=== PATIENT | female | born 1990 | race Caucasian/White ===

== ENCOUNTER 2017-11-20 14:14 | Emergency (ER) | payer BC ==
[2017-11-20] MEDS ORDERED: ONDANSETRON 4 MG (ODT) TAB ONE (14:52)
[2017-11-20 15:03] LABS: Urine Blood TRACE (NEG); Urine Glucose NEGATIVE (NEG); Urine Protein TRACE (NEG); Urine Specific Gravity 1.025 (1.005-1.030); Urine pH 5.5 (5.0-7.0)
--- NOTE | 2017-11-20 16:05 | ER ---
Nurse's Notes [facility] Name: Arline Ordaz Age: 27 yrs Sex: Female : 1990 Arrival Date: 11/20/2017 Time: 14:18 Bed DIS2 Private MD: Diagnosis: Noninfective gastroenteritis and colitis, unspecified Presentation: 11/20 14:45 Presenting complaint: Patient states: i have had some congestion, body aches and tw2 vomiting for a week, me and him i think are passing it to each other. Transition of care: patient was not received from another setting of care. Onset of symptoms was November 20, 2017. Initial Sepsis Screen: Does the patient meet any 2 criteria? No. Patient's initial sepsis screen is negative. Does the patient have a suspected source of infection? No. Patient's initial sepsis screen is negative. Care prior to arrival: None. 14:45 Method Of Arrival: Ambulatory tw2 14:45 Acuity: ALPESH 4 tw2 Triage Assessment: 15:15 General: Appears in no apparent distress. obese, Behavior is calm, cooperative, tw2 appropriate for age. Pain: Denies pain. Neuro: Level of Consciousness is awake, alert, obeys commands, Oriented to person, place, time, situation. Cardiovascular: Denies chest pain, palpitations, Capillary refill < 3 seconds Patient's skin is warm and dry. Respiratory: Airway is patent Respiratory effort is even, unlabored, Respiratory pattern is regular, symmetrical. GI: Reports nausea, vomiting. : No signs and/or symptoms were reported regarding the genitourinary system. Musculoskeletal: Range of motion: intact in all extremities. 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 tw2 Historical: - Allergies: 15:14 No Known Drug Allergies; tw2 - Immunization history:: Adult Immunizations up to date. - Social history:: Smoking status: Patient/guardian denies using tobacco. Screenin:14 Abuse screen: Denies threats or abuse. Nutritional screening: No deficits noted. tw2 Tuberculosis screening: No symptoms or risk factors identified. Fall Risk None identified. Assessment: 14:40 General: Appears in no apparent distress. obese, well groomed, Behavior is calm, tw2 cooperative, appropriate for age. Neuro: Level of Consciousness is awake, alert, obeys commands, Oriented to person, place, time, situation. Cardiovascular: Denies chest pain, shortness of breath, Capillary refill < 3 seconds Patient's skin is warm and dry. Respiratory: Airway is patent Respiratory effort is even, unlabored, Respiratory pattern is regular, symmetrical. GI: Parent/caregiver reports the patient having nausea, vomiting. : No signs and/or symptoms were reported regarding the genitourinary system. Derm: No signs and/or symptoms reported regarding the dermatologic system. Skin is intact, is healthy with good turgor, Skin temperature is warm. Musculoskeletal: Range of motion: intact in all extremities. 15:42 Reassessment: Patient appears in no apparent distress at this time. Patient and/or tw2 family updated on plan of care and expected duration. Pain level reassessed. Patient is alert, oriented x 3, equal unlabored respirations, skin warm/dry/pink. pt tolerated PO fluids, no vomiting, provider notified. Patient states feeling better. Vital Signs: 14:46 BP 111 / 67; Pulse 98; Resp 17; Temp 97.6(TE); Pulse Ox 97% on R/A; Weight 104.33 kg tw2 (R); Height 5 ft. 9 in. (175.26 cm); Pain 5/10; 15:49 BP 114 / 69; Pulse 87; Resp 18; Pulse Ox 97% on R/A; tw2 14:46 Body Mass Index 33.96 (104.33 kg, 175.26 cm) tw2 ED Course: 14:18 Patient arrived in ED. as 14:37 [facility]C [facility]. kb 14:37 Tunde Ferrera MD is Attending Physician. kb 14:45 Cinda Love, JOSE is Primary Nurse. tw2 14:46 Triage completed. tw2 15:15 Arm band placed on. tw2 15:15 Bed in low position. Call light in reach. tw2 15:16 No provider procedures requiring assistance completed. Patient did not have IV access tw2 during this emergency room visit. Administered Medications: 15:00 Drug: Zofran 4 mg Route: PO; tw2 15:42 Follow up: Response: No adverse reaction; Nausea is decreased tw2 Outcome: 16:04 Discharge ordered by . rose 16:09 Discharged to home ambulatory. tw2 16:09 Condition: stable 16:09 Discharge instructions given to patient, Instructed on discharge instructions, follow up and referral plans. medication usage, Demonstrated understanding of instructions, follow-up care, medications, Prescriptions given X 2. 16:09 Patient left the ED. tw2 Signatures: Lilli Mae FNP-C FNP-Edith Alexander Tara, RN RN tw2
--- NOTE | 2017-11-20 16:05 | EDPHYS ---
Physician Documentation [facility] Name: Arline Ordaz Age: 27 yrs Sex: Female : 1990 Arrival Date: 11/20/2017 Time: 14:18 Bed DIS2 Private MD: ED Physician Tunde Ferrera HPI: 11/20 16:37 This 27 yrs old Female presents to ER via Ambulatory with complaints of kb Fever, Vomiting, Congestion. 16:37 The patient presents to the emergency department with nausea, vomiting, diarrhea. kb Onset: The symptoms/episode began/occurred last week. Possible causes: sick contacts, by family, , son. The symptoms are aggravated by nothing. The symptoms are alleviated by nothing. Associated signs and symptoms: Pertinent positives: diarrhea, fever, nausea, vomiting. Severity of symptoms: At their worst the symptoms were mild moderate in the emergency department the symptoms are unchanged. The patient has not experienced similar symptoms in the past. The patient has not recently seen a physician. 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 tw2 Historical: - Allergies: 15:14 No Known Drug Allergies; tw2 - Immunization history:: Adult Immunizations up to date. - Social history:: Smoking status: Patient/guardian denies using tobacco. ROS: 16:36 Neck: Negative for injury, pain, and swelling, Cardiovascular: Negative for chest pain, kb palpitations, and edema, Respiratory: Negative for shortness of breath, cough, wheezing, and pleuritic chest pain, Back: Negative for injury and pain, : Negative for injury, bleeding, discharge, and swelling, MS/Extremity: Negative for injury and deformity, Skin: Negative for injury, rash, and discoloration, Neuro: Negative for headache, weakness, numbness, tingling, and seizure. 16:36 Constitutional: Positive for fever, Negative for body aches, chills, fatigue, malaise, poor PO intake, weight loss. 16:36 ENT: Positive for sinus congestion. 16:36 Abdomen/GI: Positive for nausea, vomiting, and diarrhea, Negative for abdominal pain, constipation, abdominal cramps, abdominal distension, anorexia. Exam: 16:37 Constitutional: This is a well developed, well nourished patient who is awake, alert, kb and in no acute distress. Head/Face: Normocephalic, atraumatic. ENT: Nares patent. No nasal discharge, no septal abnormalities noted. Tympanic membranes are normal and external auditory canals are clear. Oropharynx with no redness, swelling, or masses, exudates, or evidence of obstruction, uvula midline. Mucous membranes moist. Neck: Trachea midline, no thyromegaly or masses palpated, and no cervical lymphadenopathy. Supple, full range of motion without nuchal rigidity, or vertebral point tenderness. No Meningismus. Chest/axilla: Normal chest wall appearance and motion. Nontender with no deformity. No lesions are appreciated. Cardiovascular: Regular rate and rhythm with a normal S1 and S2. No gallops, murmurs, or rubs. Normal PMI, no JVD. No pulse deficits. Respiratory: Lungs have equal breath sounds bilaterally, clear to auscultation and percussion. No rales, rhonchi or wheezes noted. No increased work of breathing, no retractions or nasal flaring. Abdomen/GI: Soft, non-tender, with normal bowel sounds. No distension or tympany. No guarding or rebound. No evidence of tenderness throughout. Skin: Warm, dry with normal turgor. Normal color with no rashes, no lesions, and no evidence of cellulitis. MS/ Extremity: Pulses equal, no cyanosis. Neurovascular intact. Full, normal range of motion. Neuro: Awake and alert, GCS 15, oriented to person, place, time, and situation. Cranial nerves II-XII grossly intact. Motor strength 5/5 in all extremities. Sensory grossly intact. Cerebellar exam normal. Normal gait. Vital Signs: 14:46 BP 111 / 67; Pulse 98; Resp 17; Temp 97.6(TE); Pulse Ox 97% on R/A; Weight 104.33 kg tw2 (R); Height 5 ft. 9 in. (175.26 cm); Pain 5/10; 15:49 BP 114 / 69; Pulse 87; Resp 18; Pulse Ox 97% on R/A; tw2 14:46 Body Mass Index 33.96 (104.33 kg, 175.26 cm) tw2 MDM: 14:37 Patient medically screened. kb 16:36 Data reviewed: vital signs, nurses notes. Data interpreted: Pulse oximetry: on room air kb is 97 %. Interpretation: normal. Counseling: I had a detailed discussion with the patient and/or guardian regarding: the historical points, exam findings, and any diagnostic results supporting the discharge/admit diagnosis, the need for outpatient follow up, a family practitioner, to return to the emergency department if symptoms worsen or persist or if there are any questions or concerns that arise at home. 11/20 15:01 Order name: Urine Dipstick--Ancillary (enter results); Complete Time: 15:08 mw2 11/20 15:01 Order name: Urine --Ancillary (enter results); Complete Time: 15:08 mw2 11/20 14:47 Order name: Urine Dipstick-Ancillary (obtain specimen); Complete Time: 15:02 kb 11/20 14:48 Order name: PO challenge; Complete Time: 15:42 kb Administered Medications: 15:00 Drug: Zofran 4 mg Route: PO; tw2 15:42 Follow up: Response: No adverse reaction; Nausea is decreased tw2 Disposition: 17:32 Co-signature as Attending Physician, Tunde Ferrera MD. rn Disposition: 11/20/17 16:04 Discharged to Home. Impression: Noninfective gastroenteritis and colitis, unspecified. - Condition is Stable. - Discharge Instructions: Food Choices to Help Relieve Diarrhea, Adult, Viral Gastroenteritis. - Prescriptions for Bentyl 20 mg Oral Tablet - take 1 tablet by ORAL route every 6 hours As needed; 20 tablet. Zofran 4 mg Oral Tablet - take 1 tablet by ORAL route every 6 hours As needed; 20 tablet. - Medication Reconciliation Form, Thank You Letter, Antibiotic Education, Prescription Opioid Use, Work release form form. - Follow up: Emergency Department; When: As needed; Reason: Worsening of condition. Follow up: Private Physician; When: 2 - 3 days; Reason: Recheck today's complaints, Continuance of care, Re-evaluation by your physician. Signatures: Dispatcher [employer] Lilli Sweeney, KOREY-C KOREY-Tunde Fink MD MD rn Wise, Tara, RN RN tw2
[2017-11-20 16:25] VITALS: BP 114/69; O2SAT 97
[2017-11-20 16:27] VITALS: TEMP 97.6
== END 2017-11-20 16:09 | disposition home or self-care (01) ==
LOC: ER 14:14
DX: K52.9 Noninfective gastroenteritis and colitis, unspecified (principal); R11.10 Vomiting, unspecified; R50.9 Fever, unspecified
CPT/HCPCS: 81003; 81025; 99283

== ENCOUNTER 2017-11-29 10:18 | Emergency (ER) | payer BC ==
--- NOTE | 2017-11-29 12:31 | RAD REPORT ---
EXAM DESCRIPTION: CT - CTHCSPWOC - 11/29/2017 12:15 pm CLINICAL HISTORY: Trauma, head and neck injury. COMPARISON: None. TECHNIQUE: Axial 5 mm thick images of the head were obtained. Axial 2 mm thick images of the cervical spine were obtained with sagittal and coronal reconstruction images generated and reviewed. All CT scans are performed using dose optimization technique as appropriate and may include automated exposure control or mA/KV adjustment according to patient size. FINDINGS: CT HEAD WITHOUT CONTRAST: No acute hemorrhage, hydrocephalus or extra-axial collection is identified.No areas of brain edema or midline shift. The paranasal sinuses and mastoids are clear.The calvarium is intact. CT CERVICAL SPINE WITHOUT CONTRAST: No fracture or subluxation.No prevertebral soft tissues swelling is identified. IMPRESSION: No acute intracranial or cervical spine findings.
--- NOTE | 2017-11-29 12:51 | RAD REPORT ---
EXAM DESCRIPTION: Spine Thoracic W/Swimmers CLINICAL HISTORY: Fall, trauma, radiculopathy. COMPARISON: None FINDINGS: The thoracic spine vertebral body heights and disc spaces are largely maintained. No acute compression fracture. No significant malalignment. IMPRESSION: Negative study.
--- NOTE | 2017-11-29 12:51 | RAD REPORT ---
EXAM DESCRIPTION: Lumbar Spine 3 Views CLINICAL HISTORY: Fall, back pain and radiculopathy. COMPARISON: None. FINDINGS: Vertebral body heights appear maintained. No compression fracture noted. Disc spaces are m aintained. No spondylolysis or spondylolisthesis. IMPRESSION: Negative study.
[2017-11-29 13:19] LABS: Absolute Lymphocytes (CBC) 2.4 K/uL (0.7-4.9); Absolute Monocytes 0.7 K/uL (0.1-1.3); Absolute Neutrophil 6.3 K/uL (1.8-8.0); Basophils % 0.5 % (0-1.3); Eosinophils % 2.1 % (0-4.4); Hematocrit 42.5 % (36.0-45.0); Lymphocytes % 24.4 % (15.3-44.8); MCH 26.6 pg (27.0-35.0); Monocytes % 7.4 % (3.3-12.3); RBC Red Blood Cell Count 5.19 M/uL (3.86-4.86)
[2017-11-29] MEDS ORDERED: IBUPROFEN 400 MG TAB ONE (13:22)
[2017-11-29] MEDS ORDERED: ACETAMINOPHEN 500 MG TAB ONE (13:22)
[2017-11-29] MEDS ORDERED: IBUPROFEN 200 MG TAB PO ONE (13:22)
[2017-11-29 13:36] LABS: Urine Glucose NEGATIVE (NEG); Urine Specific Gravity 1.025 (1.005-1.030)
[2017-11-29 13:37] LABS: Urine Blood NEGATIVE (NEG); Urine Protein NEGATIVE (NEG); Urine pH 5.5 (5.0-7.0)
[2017-11-29 13:40] LABS: Potassium 3.7 mEq/L (3.6-5.0)
[2017-11-29 13:46] LABS: Albumin 3.8 g/dL (3.2-5.5); Bilirubin Direct 0.1 mg/dL (0-0.2); Bilirubin Total 0.4 mg/dL (0.3-1.2); Magnesium 1.8 mg/dL (1.8-2.5)
--- NOTE | 2017-11-29 14:32 | EDPHYS ---
Physician Documentation [facility] Name: Arline Ordaz Age: 27 yrs Sex: Female : 1990 Arrival Date: 11/29/2017 Time: 10:19 Bed 18 Private MD: Ramesh Nielsen H ED Physician Damaso Ace HPI: 11/29 14:20 This 27 yrs old Female presents to ER via Ambulatory with complaints of wa Headache, Back Pain. 14:20 This 27 yrs old Female presents to ER via Ambulatory with complaints of wa Headache, Back Pain. 14:20 The patient has experienced syncope, collapsed. Onset: The symptoms/episode wa began/occurred last night. Duration: This was a single episode. Context: the episode(s) was witnessed, by family, occurred at home, occurred while the patient was walking, Just prior to the episode the patient experienced no apparent symptoms. Associated injury: Other: c/o ANDERSON, neck and back pain. h/o drop attacks. states no dx has even been made. Associated signs and symptoms: Pertinent positives: headache, neck pain, Pertinent negatives: abdominal pain, agitation, ataxia, chest pain, lightheadedness. Current symptoms: headache, that is moderate, neck pain. The patient has not experienced similar symptoms in the past. The patient has experienced similar episodes in the past. The patient has not recently seen a physician. 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 - Social history:: Smoking status: Patient/guardian denies using tobacco. - Family history:: not pertinent. - Hospitalizations: : No recent hospitalization is reported. ROS: 14:24 Constitutional: Negative for fever, chills, and weight loss, Eyes: Negative for injury, wa pain, redness, and discharge, ENT: Negative for injury, pain, and discharge, Neck: Negative for injury, pain, and swelling, Cardiovascular: Negative for chest pain, palpitations, and edema, Respiratory: Negative for shortness of breath, cough, wheezing, and pleuritic chest pain, Abdomen/GI: Negative for abdominal pain, nausea, vomiting, diarrhea, and constipation, : Negative for injury, bleeding, discharge, and swelling, MS/Extremity: Negative for injury and deformity, Skin: Negative for injury, rash, and discoloration. 14:24 Back: Positive for pain with movement. 14:24 Neuro: Positive for headache, Negative for altered mental status. 14:24 All other systems are negative. Exam: 14:27 Constitutional: This is a well developed, well nourished patient who is awake, alert, wa and in no acute distress. Head/Face: Normocephalic, atraumatic. Eyes: Pupils equal round and reactive to light, extra-ocular motions intact. Lids and lashes normal. Conjunctiva and sclera are non-icteric and not injected. Cornea within normal limits. Periorbital areas with no swelling, redness, or edema. ENT: Nares patent. No nasal discharge, no septal abnormalities noted. Tympanic membranes are normal and external auditory canals are clear. Oropharynx with no redness, swelling, or masses, exudates, or evidence of obstruction, uvula midline. Mucous membranes moist. Neck: Trachea midline, no thyromegaly or masses palpated, and no cervical lymphadenopathy. Supple, full range of motion without nuchal rigidity, or vertebral point tenderness. No Meningismus. Chest/axilla: Normal chest wall appearance and motion. Nontender with no deformity. No lesions are appreciated. Cardiovascular: Regular rate and rhythm with a normal S1 and S2. No gallops, murmurs, or rubs. Normal PMI, no JVD. No pulse deficits. Respiratory: Lungs have equal breath sounds bilaterally, clear to auscultation and percussion. No rales, rhonchi or wheezes noted. No increased work of breathing, no retractions or nasal flaring. Abdomen/GI: Soft, non-tender, with normal bowel sounds. No distension or tympany. No guarding or rebound. No evidence of tenderness throughout. Skin: Warm, dry with normal turgor. Normal color with no rashes, no lesions, and no evidence of cellulitis. MS/ Extremity: Pulses equal, no cyanosis. Neurovascular intact. Full, normal range of motion. Psych: Awake, alert, with orientation to person, place and time. Behavior, mood, and affect are within normal limits. 14:27 Back: pain, that is moderate, of the thoracic area, lumbar area and sacrum. 14:27 Neuro: Orientation: is normal, Mentation: is normal, Cranial nerves: grossly normal, Motor: is normal. Vital Signs: 10:34 BP 131 / 82; Pulse 88; Resp 16 S; Temp 97.8(TE); Pulse Ox 96% on R/A; Weight 129.27 kg aa5 (R); Height 5 ft. 9 in. (175.26 cm) (R); Pain 8/10; 11:27 BP 120 / 80; Pulse 80; Resp 16; Pulse Ox 97% on R/A; Pain 8/10; ed1 13:25 BP 101 / 77; Pulse 60; Resp 20; Pulse Ox 100% on R/A; Pain 8/10; ed1 14:04 BP 112 / 65; Pulse 80; Resp 19; Pulse Ox 100% on R/A; Pain 6/10; ed1 10:34 Body Mass Index 42.09 (129.27 kg, 175.26 cm) aa5 MDM: 11:31 Patient medically screened. id 14:28 Differential Diagnosis: cardiac arrhythmia, cerebrovascular accident, seizure, wa vasovagal episode. Data reviewed: vital signs, nurses notes, lab test result(s), EKG, radiologic studies. Test interpretation: by ED physician or midlevel provider: EKG: HR 66. nml EKG. 14:29 Test interpretation: by ED physician or midlevel provider: labs wnl. CT head and wa C-spine no acute process. 14:29 Test interpretation: by ED physician or midlevel provider: lumbar and T spine xrays: no wa acute process. Response to treatment: the patient's symptoms have markedly improved after treatment. 11/29 11:52 Order name: Basic Metabolic Panel; Complete Time: 14:12 id 11/29 11:52 Order name: CBC with Diff; Complete Time: 14:12 id 11/29 11:52 Order name: LFT's; Complete Time: 14:12 id 11/29 11:52 Order name: Magnesium; Complete Time: 14:12 id 11/29 13:21 Order name: Urine Dipstick--Ancillary (enter results); Complete Time: 14:12 11/29 13:21 Order name: Urine --Ancillary (enter results); Complete Time: 14:12 11/29 11:52 Order name: Urine Test (obtain specimen); Complete Time: 13:11 id 11/29 11:52 Order name: EKG; Complete Time: 11:53 id 11/29 11:52 Order name: Cardiac monitoring; Complete Time: 13:11 id 11/29 11:54 Order name: CT Head C Spine; Complete Time: 13:18 id 11/29 11:56 Order name: Lumbar Spine (3 Views) XRAY; Complete Time: 13:18 id 11/29 11:56 Order name: XRAY Thoracic Spine (W/swimmers); Complete Time: 13:18 id 11/29 11:52 Order name: EKG - Nurse/Tech; Complete Time: 13:11 id 11/29 11:52 Order name: IV Saline Lock; Complete Time: 13:11 id 11/29 11:52 Order name: Labs collected and sent; Complete Time: 13:11 id 11/29 11:52 Order name: O2 Sat Monitoring; Complete Time: 13:11 id 11/29 11:52 Order name: Urine Dipstick-Ancillary (obtain specimen); Complete Time: 13:11 id Administered Medications: 13:27 Drug: Motrin 600 mg Route: PO; ed1 14:53 Follow up: Response: No adverse reaction; Pain is decreased ed1 13:28 Drug: Tylenol 1000 mg Route: PO; ed1 14:53 Follow up: Response: No adverse reaction; Pain is decreased ed1 Disposition: 11/29/17 14:32 Discharged to Home. Impression: Syncope and collapse, Acute Neck and BAck Sprain. - Condition is Stable. - Prescriptions for Tramadol 50 mg Oral Tablet - take 1 tablet by ORAL route every 8 hours as needed; 12 tablet. - Work release form, Medication Reconciliation Form, Thank You Letter, Antibiotic Education, Prescription Opioid Use form. - Follow up: Davey Mata MD; When: 2 - 3 days; Reason: Recheck today's complaints. Follow up: Cole Barrios MD; When: 2 - 3 days; Reason: Recheck today's complaints. - Problem is an acute exacerbation. - Symptoms have improved. - Notes: please follow up with the neurologist and production posting clerk with further evaluation. Signatures: Dispatcher [employer] EDMS Kelly Steward, RN RN aa5 Janae Lewis, VICE PRESIDENT NETWORK VICE PRESIDENT NETWORK ed1 Damaso Ace MD MD wa Corrections: (The following items were deleted from the chart) 14:54 14:32 11/29/2017 14:32 Discharged to Home. Impression: Syncope and collapse; Acute Neck ed1 and BAck Sprain. Condition is Stable. Forms are Medication Reconciliation Form, Thank You Letter, Antibiotic Education, Prescription Opioid Use. Follow up: Davey Mata; When: 2 - 3 days; Reason: Recheck today's complaints. Follow up: Cole Barrios; When: 2 - 3 days; Reason: Recheck today's complaints. Problem is an acute exacerbation. Symptoms have improved. wa
--- NOTE | 2017-11-29 14:32 | ER ---
Nurse's Notes [facility] Name: Arline Ordaz Age: 27 yrs Sex: Female : 1990 Arrival Date: 11/29/2017 Time: 10:19 Bed 18 Private MD: Ramesh Nielsen H Diagnosis: Syncope and collapse;Acute Neck and BAck Sprain Presentation: 11/29 10:32 Presenting complaint: Patient states: "I passed out today around 2 am". Pt states "my aa5 found me lying down on the sidewalk". Pt states "I've had trouble with passing out for years and nobody can found out why". Pt c/o back pain and headache. Transition of care: patient was not received from another setting of care. Onset of symptoms was November 29, 2017. Initial Sepsis Screen: Does the patient meet any 2 criteria? No. Patient's initial sepsis screen is negative. Does the patient have a suspected source of infection? No. Patient's initial sepsis screen is negative. Care prior to arrival: None. 10:32 Method Of Arrival: Ambulatory aa5 10:32 Acuity: ALPESH 3 aa5 Triage Assessment: 11:27 Headache History: The patient has had previous headaches and this one is similar to ed1 previous episodes. General: Appears in no apparent distress. Behavior is calm, cooperative. Pain: Also complains of no other associated symptoms. Pain: Complains of pain in face. 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 - Social history:: Smoking status: Patient/guardian denies using tobacco. - Family history:: not pertinent. - Hospitalizations: : No recent hospitalization is reported. Screenin:27 Abuse screen: Denies threats or abuse. Denies injuries from another. Nutritional ed1 screening: No deficits noted. Tuberculosis screening: No symptoms or risk factors identified. Fall Risk None identified. Assessment: 11:27 General: Appears uncomfortable, Behavior is calm, cooperative. Pain: Complains of pain ed1 in face, low back area and neck Pain does not radiate. Pain currently is 8 out of 10 on a pain scale. at worst was 10 out of 10 on a pain scale. level that patient reports is acceptable is 3 out of 10 on a pain scale. Quality of pain is described as burning, aching, Pain began 1 day ago. Is continuous, Current management is with Ally Aspirin. Neuro: Level of Consciousness is awake, alert, obeys commands, Oriented to person, place, time, situation, Meat And Seafood Clerk are equal bilaterally Moves all extremities. Full function Gait is steady, Speech is normal, Facial symmetry appears normal, Pupils are PERRLA, Intact Reports headache in entire parietal area, frontal area, occipital area, since yesterday lightheadedness. Denies blurred vision difficulty swallowing, numbness photophobia diplopia. Cardiovascular: Denies chest pain, Heart tones S1 S2 present Capillary refill < 3 seconds in bilateral fingers Patient's skin is warm and dry. Respiratory: Airway is patent Respiratory effort is even, unlabored, Respiratory pattern is regular, symmetrical, Breath sounds are clear bilaterally. Denies cough, shortness of breath. GI: Abdomen is obese, Bowel sounds present X 4 quads. Abd is soft and non tender X 4 quads. Patient currently denies diarrhea, nausea, vomiting. : No signs and/or symptoms were reported regarding the genitourinary system. EENT: No signs and/or symptoms were reported regarding the EENT system. Derm: Skin is pink, warm \\T\\ dry. Musculoskeletal: Circulation, motion, and sensation intact. 11:27 Reassessment: I agree with assessment completed by EUSEBIA Cardoso. iw 13:25 Reassessment: Patient appears in no apparent distress at this time. No changes from ed1 previously documented assessment. Patient and/or family updated on plan of care and expected duration. Pain level reassessed. Patient is alert, oriented x 3, equal unlabored respirations, skin warm/dry/pink. Patient states symptoms have not improved. 14:04 Reassessment: Patient appears in no apparent distress at this time. No changes from ed1 previously documented assessment. Patient and/or family updated on plan of care and expected duration. Pain level reassessed. Patient is alert, oriented x 3, equal unlabored respirations, skin warm/dry/pink. Patient states feeling better. Patient states symptoms have improved. Vital Signs: 10:34 BP 131 / 82; Pulse 88; Resp 16 S; Temp 97.8(TE); Pulse Ox 96% on R/A; Weight 129.27 kg aa5 (R); Height 5 ft. 9 in. (175.26 cm) (R); Pain 8/10; 11:27 BP 120 / 80; Pulse 80; Resp 16; Pulse Ox 97% on R/A; Pain 8/10; ed1 13:25 BP 101 / 77; Pulse 60; Resp 20; Pulse Ox 100% on R/A; Pain 8/10; ed1 14:04 BP 112 / 65; Pulse 80; Resp 19; Pulse Ox 100% on R/A; Pain 6/10; ed1 10:34 Body Mass Index 42.09 (129.27 kg, 175.26 cm) aa5 ED Course: 10:19 Patient arrived in ED. as 10:20 Ramesh Nielsen DO is Private Physician. as 10:34 Triage completed. aa5 10:34 Arm band placed on. aa5 10:35 Patient placed in waiting room, Patient notified of wait time. aa5 11:22 Janae Lewis LVN is Primary Nurse. ed1 11:27 Awaiting ED provider evaluation. ed1 11:27 Patient has correct armband on for positive identification. Bed in low position. Call ed1 light in reach. Side rails up X2. Adult w/ patient. Pulse ox on. NIBP on. 11:31 Damaso Ace MD is Attending Physician. wa 12:15 CT Head C Spine In Process Unspecified. EDMS 12:27 Patient moved to radiology via wheelchair. jb2 12:46 Lumbar Spine (3 Views) XRAY In Process Unspecified. EDMS 12:46 XRAY Thoracic Spine (W/swimmers) In Process Unspecified. EDMS 13:10 Initial lab(s) drawn, by me, sent to lab. Inserted saline lock: 20 gauge in right ed1 antecubital area, using aseptic technique. Blood collected. 14:05 Resting quietly. Awaiting re-evaluation by ER provider. ed1 14:31 Davey Mata MD is Referral Physician. wa 14:31 Cole Barrios MD is Referral Physician. wa 14:52 No provider procedures requiring assistance completed. IV discontinued, intact, ed1 bleeding controlled, No redness/swelling at site. Pressure dressing applied. Administered Medications: 13:27 Drug: Motrin 600 mg Route: PO; ed1 14:53 Follow up: Response: No adverse reaction; Pain is decreased ed1 13:28 Drug: Tylenol 1000 mg Route: PO; ed1 14:53 Follow up: Response: No adverse reaction; Pain is decreased ed1 Outcome: 14:32 Discharge ordered by MD. purcell 14:52 Discharged to home ambulatory, with significant other. ed1 14:52 Condition: good 14:52 Discharge instructions given to patient, Instructed on discharge instructions, follow up and referral plans. medication usage, Demonstrated understanding of instructions, follow-up care, medications, Prescriptions given X 1. 14:54 Patient left the ED. ed1 Signatures: Dispatcher [employer] EDMS Mohsen Mike jb2 Edith Wyatt Irene, RN RN iw Kelly Steward RN RN aa5 Janae Lewis LVN POOLROOM/POOLHALL MANAGER ed1 Damaso Ace MD MD wa
[2017-11-29 14:57] VITALS: TEMP 97.8
[2017-11-29 15:00] VITALS: O2SAT 100
[2017-11-29 15:01] VITALS: BP 112/65
--- NOTE | 2017-11-29 17:42 | EKG ---
Test Date: 2017-11-29 Test Time: 12:53:14 Patent Prosecution Paralegal: GAVINO MEASUREMENT RESULTS: Intervals: Rate: 66 WA: 148 QRSD: 86 QT: 430 QTc: 450 Britt: P: 26 WA: 148 QRS: 46 T: 41 INTERPRETIVE STATEMENTS: Normal sinus rhythm with sinus arrhythmia Normal ECG Compared to ECG 10/12/2015 13:06:38 No significant changes Electronically Signed On 11-29-17 17:41:25 CDT by Darryl Maynard
== END 2017-11-29 14:54 | disposition home or self-care (01) ==
LOC: ER 10:18
DX: S13.9XXA Sprain of joints and ligaments of unspecified parts of neck, initial encounter (principal); S33.5XXA Sprain of ligaments of lumbar spine, initial encounter; W18.39XA Other fall on same level, initial encounter; Y93.9 Activity, unspecified; Y92.9 Unspecified place or not applicable
CPT/HCPCS: 36415; 70450; 72072; 72100; 72125; 80048; 80076; 81003; 81025; 83735; 85025; 93005; 99284

== ENCOUNTER 2018-07-18 23:09 | Emergency (ER) | payer BC ==
[2018-07-19] MEDS ORDERED: ONDANSETRON 4 MG (ODT) TAB ONE (00:33)
--- NOTE | 2018-07-19 02:13 | EDPHYS ---
Physician Documentation [facility] Name: Arline Ordaz Age: 28 yrs Sex: Female : 1990 Arrival Date: 07/18/2018 Time: 23:16 Bed 16 Private MD: ED Physician Yuri Wilkerson HPI: 07/19 00:05 This 28 yrs old Female presents to ER via Ambulatory with complaints of cp Vomiting, Fever. 00:05 The patient presents to the emergency department with nausea, that is mild, vomiting, cp that is intermittent, diarrhea, that is intermittent, abdominal pain, of the left side. Onset: The symptoms/episode began/occurred yesterday. Possible causes: unknown. Associated signs and symptoms: Pertinent positives: fever, Pertinent negatives: constipation, dysuria, GI bleeding, active vomiting. 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 - Social history:: Smoking status: Patient/guardian denies using tobacco, never smoked. - Ebola Screening: : No symptoms or risks identified at this time. ROS: 07/19 00:10 Constitutional: Negative for body aches, chills, fever, poor PO intake. cp 00:10 Eyes: Negative for injury, pain, redness, and discharge. cp 00:10 ENT: Negative for drainage from ear(s), ear pain, difficulty swallowing, difficulty handling secretions. 00:10 Cardiovascular: Negative for chest pain. 00:10 Respiratory: Negative for cough, shortness of breath, wheezing. 00:10 Abdomen/GI: Positive for abdominal pain, nausea, vomiting, diarrhea, Negative for constipation, black/tarry stool, rectal bleeding. 00:10 Back: Negative for radiated pain. 00:10 : Negative for burning with urination. 00:10 Skin: Negative for cellulitis, rash. 00:10 Neuro: Negative for altered mental status, headache, weakness. 00:10 All other systems are negative. Exam: 00:15 Constitutional: The patient appears in no acute distress, alert, awake, non-toxic, well cp developed, well nourished. 00:15 Head/Face: Normocephalic, atraumatic. cp 00:15 Eyes: Periorbital structures: appear normal, Conjunctiva: normal, no exudate, no injection, Sclera: no appreciated abnormality, Lids and lashes: appear normal, bilaterally. 00:15 ENT: External ear(s): are unremarkable, Ear canal(s): are normal, clear, TM's: dullness, bilaterally, Nose: is normal, Mouth: Lips: moist, Oral mucosa: pink and intact, moist, Posterior pharynx: is normal, airway is patent, no erythema, no exudate. 00:15 Chest/axilla: Inspection: normal, Palpation: is normal, no crepitus, no tenderness. 00:15 Cardiovascular: Rate: normal, Rhythm: regular. 00:15 Respiratory: the patient does not display signs of respiratory distress, Respirations: normal, no use of accessory muscles, no retractions, no splinting, no tachypnea, labored breathing, is not present, Breath sounds: are clear throughout, no decreased breath sounds, no stridor, no wheezing. 00:15 Abdomen/GI: Exam negative for discomfort, distension, guarding, Inspection: abdomen appears normal. 00:15 Skin: cellulitis, is not appreciated, no rash present. Vital Signs: 07/18 23:55 BP 117 / 73; Pulse 77; Resp 19 S; Temp 99.2(O); Pulse Ox 99% on R/A; Weight 120.2 kg cc3 (R); Height 5 ft. 9 in. (175.26 cm) (R); 07/19 00:15 BP 124 / 76; Pulse 73; Resp 17 S; Pulse Ox 100% on R/A; cc3 01:30 BP 113 / 73; Pulse 75; Resp 17 S; Pulse Ox 100% on R/A; cc3 02:07 BP 116 / 81; Pulse 74; Resp 18 S; Pulse Ox 99% on R/A; cc3 07/18 23:55 Body Mass Index 39.13 (120.20 kg, 175.26 cm) cc3 MDM: 07/18 23:37 Patient medically screened. [facility] 07/19 00:00 Differential diagnosis: Nonspecific abd pain, gastritis, appendicitis, diverticulitis, cp viral gastroenteritis, gastroenteritis, UTI, strep throat, influenza. 02:10 Data reviewed: vital signs, lab test result(s), and as a result, I will discharge cp patient. 02:10 Counseling: I had a detailed discussion with the patient and/or guardian regarding: the cp historical points, exam findings, and any diagnostic results supporting the discharge/admit diagnosis, lab results, to return to the emergency department if symptoms worsen or persist or if there are any questions or concerns that arise at home. Response to treatment: VSS. Nausea improved and no vomiting observed in ED. Will discharge to home for continued monitoring. 07/18 23:56 Order name: Influenza Screen (a \T\ B); Complete Time: 01:24 07/19 01:24 Interpretation: Reviewed. 07/18 23:56 Order name: Strep; Complete Time: 01:24 07/19 01:25 Interpretation: Reviewed. 07/19 01:16 Order name: Throat Culture [facility] 07/19 01:31 Order name: Urine Microscopic Only 07/19 01:35 Order name: Urine Dipstick--Ancillary (enter results) 07/19 01:35 Order name: Urine --Ancillary (enter results) 07/18 23:56 Order name: Urine Dipstick-Ancillary (obtain specimen); Complete Time: 01:30 07/18 23:56 Order name: Urine Test (obtain specimen); Complete Time: 01:30 07/19 01:31 Order name: Accucheck Blood Glucose; Complete Time: 01:43 07/19 01:36 Order name: Urine Dipstick-Ancillary [facility] 07/19 01:36 Order name: Urine --Ancillary [facility] 07/19 01:36 Order name: PO challenge; Complete Time: 01:43 07/19 02:23 Order name: Urine Culture EDPR Administered Medications: 00:31 Drug: Zofran 4 mg Route: PO; cc3 01:00 Follow up: Response: No adverse reaction; Nausea is decreased cc3 Point of Care Testing: Blood Glucose: 01:42 Blood Glucose: 84 mg/dL; cc3 Ranges: Critical Glucose Levels:Adult <50 mg/dl or >400 mg/dl <40 mg/dl or >180 mg/dl Disposition: 07/19/18 02:12 Discharged to Home. Impression: Diarrhea, unspecified, Vomiting. - Condition is Stable. - Discharge Instructions: Food Choices to Help Relieve Diarrhea, Adult, Diarrhea, Adult, Vomiting, Adult. - Prescriptions for Zofran 4 mg Oral Tablet - take 1 tablet by ORAL route every 12 hours As needed; 20 tablet. Augmentin 875- 125 mg Oral Tablet - take 1 tablet by ORAL route every 12 hours for 7 days; 14 tablet. - Medication Reconciliation Form, Thank You Letter, Antibiotic Education, Prescription Opioid Use, Work release form form. - Follow up: Private Physician; When: 2 - 3 days; Reason: Recheck today's complaints. - Problem is new. - Symptoms have improved. Addendum: 07/29/2018 11:14 Co-signature as Attending Physician, Yuri Wilkerson MD I agree with the assessment and c russo plan of care. Signatures: Dispatcher [employer] EDPR Yuri Wilkerson MD MD cha Page, Corey PA PA Liz Boston cc3 Corrections: (The following items were deleted from the chart) 07/19 02:46 02:12 07/19/2018 02:12 Discharged to Home. Impression: Diarrhea, unspecified; Vomiting. cc3 Condition is Stable. Forms are Medication Reconciliation Form, Thank You Letter, Antibiotic Education, Prescription Opioid Use. Follow up: Private Physician; When: 2 - 3 days; Reason: Recheck today's complaints. Problem is new. Symptoms have improved. cp 19:40 19:30 This 28 yrs old Female presents to ER via Ambulatory with complaints of cp Vomiting, Fever. cp
--- NOTE | 2018-07-19 02:13 | ER ---
Nurse's Notes [facility] Name: Arline Ordaz Age: 28 yrs Sex: Female : 1990 Arrival Date: 07/18/2018 Time: 23:16 Bed 16 Private MD: Diagnosis: Diarrhea, unspecified;Vomiting Presentation: 07/18 23:55 Presenting complaint: Patient states: left sided abdominal pain with vomiting and cc3 diarrhea since last night. Transition of care: patient was not received from another setting of care. Onset of symptoms was July 18, 2018. Risk Assessment: Do you want to hurt yourself or someone else? Patient reports no desire to harm self or others. Initial Sepsis Screen: Does the patient meet any 2 criteria? No. Patient's initial sepsis screen is negative. Does the patient have a suspected source of infection? No. Patient's initial sepsis screen is negative. Care prior to arrival: None. 23:55 Method Of Arrival: Ambulatory cc3 23:55 Acuity: APLESH 3 cc3 Triage Assessment: 23:53 General: Appears in no apparent distress. comfortable, Behavior is calm, cooperative, cc3 appropriate for age. Pain: Complains of pain in abdomen. GI: Reports lower abdominal pain, upper abdominal pain, nausea, vomiting. 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 - Social history:: Smoking status: Patient/guardian denies using tobacco, never smoked. - Ebola Screening: : No symptoms or risks identified at this time. Screenin:53 Abuse screen: Denies threats or abuse. Denies injuries from another. Nutritional cc3 screening: No deficits noted. Tuberculosis screening: No symptoms or risk factors identified. Fall Risk Ambulatory Aid- None/Bed Rest/Nurse Assist (0 pts). Gait- Normal/Bed Rest/Wheelchair (0 pts) Mental Status- Oriented to own ability (0 pts). Assessment: 23:53 GI: Abdomen is round obese. cc3 07/19 00:20 Reassessment: Patient appears in no apparent distress at this time. Patient and/or cc3 family updated on plan of care and expected duration. Pain level reassessed. Patient is alert, oriented x 3, equal unlabored respirations, skin warm/dry/pink. 01:30 Reassessment: Patient appears in no apparent distress at this time. Patient and/or cc3 family updated on plan of care and expected duration. Pain level reassessed. Patient is alert, oriented x 3, equal unlabored respirations, skin warm/dry/pink. 02:40 Reassessment: Patient appears in no apparent distress at this time. Patient and/or cc3 family updated on plan of care and expected duration. Pain level reassessed. Patient is alert, oriented x 3, equal unlabored respirations, skin warm/dry/pink. MERCEDEZ Krishnamurthy discharged the patient home with prescription given. No IV cannula in situ. Patient left ER vitally stable and ambulatory with her family. Vital Signs: 07/18 23:55 BP 117 / 73; Pulse 77; Resp 19 S; Temp 99.2(O); Pulse Ox 99% on R/A; Weight 120.2 kg cc3 (R); Height 5 ft. 9 in. (175.26 cm) (R); 07/19 00:15 BP 124 / 76; Pulse 73; Resp 17 S; Pulse Ox 100% on R/A; cc3 01:30 BP 113 / 73; Pulse 75; Resp 17 S; Pulse Ox 100% on R/A; cc3 02:07 BP 116 / 81; Pulse 74; Resp 18 S; Pulse Ox 99% on R/A; cc3 07/18 23:55 Body Mass Index 39.13 (120.20 kg, 175.26 cm) cc3 ED Course: 07/18 23:16 Patient arrived in ED. ag3 23:34 Yuri Krishnamurthy PA is PHCP. cp 23:34 Yuri Wilkerson MD is Attending Physician. cp 23:53 Liz Rankin is Primary Nurse. cc3 23:53 Arm band placed on right wrist. cc3 23:55 Patient has correct armband on for positive identification. Bed in low position. Call cc3 light in reach. Side rails up X 1. Pulse ox on. NIBP on. 07/19 00:14 Triage completed. cc3 02:40 No provider procedures requiring assistance completed. Patient did not have IV access cc3 during this emergency room visit. Administered Medications: 00:31 Drug: Zofran 4 mg Route: PO; cc3 01:00 Follow up: Response: No adverse reaction; Nausea is decreased cc3 Point of Care Testing: Blood Glucose: 01:42 Blood Glucose: 84 mg/dL; cc3 Ranges: Outcome: 02:12 Discharge ordered by . cp 02:40 Discharged to home ambulatory, with family. cc3 02:40 Condition: stable 02:40 Discharge instructions given to patient, family, Instructed on discharge instructions, follow up and referral plans. medication usage, Demonstrated understanding of instructions, follow-up care, medications, Prescriptions given X 2. 02:46 Patient left the ED. cc3 Signatures: Yuri Krishnamurthy PA PA cp Cordel, Charlene cc3 Shalonda Mcneil 3
[2018-07-19 02:22] LABS: Urine Bacteria 20-50 /HPF (<20); Urine Culture Reflex Order REFLEXED; Urine Mucus HEAVY /HPF (NONE SEEN); Urine RBC NONE SEEN /HPF (NONE SEEN)
[2018-07-19 02:45] LABS: Urine Blood NEGATIVE (NEG); Urine Glucose NEGATIVE (NEG); Urine Protein NEGATIVE (NEG); Urine pH 5.5 (5.0-7.0)
[2018-07-19 03:40] VITALS: TEMP 99.2
[2018-07-19 03:45] VITALS: BP 116/81; O2SAT 99
== END 2018-07-19 02:46 | disposition home or self-care (01) ==
LOC: ER 23:09
DX: R19.7 Diarrhea, unspecified (principal); R11.10 Vomiting, unspecified
CPT/HCPCS: 81003; 81015; 81025; 82962; 87070; 87081; 87086; 87088; 87804; 99283

== ENCOUNTER 2018-07-24 04:42 | Emergency (ER) | payer BC ==
[2018-07-24 05:37] LABS: Absolute Lymphocytes (CBC) 1.7 K/uL (0.7-4.9); Absolute Monocytes 0.8 K/uL (0.1-1.3); Absolute Neutrophil 4.3 K/uL (1.8-8.0); Basophils % 0.3 % (0-1.3); Eosinophils % 2.2 % (0-4.4); Hematocrit 40.2 % (36.0-45.0); Lymphocytes % 23.8 % (15.3-44.8); MPV 9.4 fL (7.6-11.3); Monocytes % 11.8 % (3.3-12.3)
[2018-07-24 05:38] LABS: Protime INR 1.05
[2018-07-24] MEDS ORDERED: MORPHINE 4 MG/ML SYR ONE (05:46)
[2018-07-24] MEDS ORDERED: ONDANSETRON 4 MG/2 ML VIAL ONE ×2 (05:46→07:33)
[2018-07-24] MEDS ORDERED: NA CHLORIDE 0.9% 2,000 ML ONE (05:46)
[2018-07-24 05:52] LABS: ALT/SGPT 53 U/L (12-78); AST/SGOT 29 U/L (15-37); Albumin 3.3 g/dL (3.4-5.0); Alkaline Phosphatase 48 U/L (45-117); BUN Blood Urea Nitrogen 8 mg/dL (7-18); Bicarbonate 24 mmol/L (21-32); Bilirubin Direct 0.1 mg/dL (0-0.2); Bilirubin Total 0.2 mg/dL (0.2-1.0); Glucose Level 116 mg/dL (74-106); Lipase 195 U/L (73-393); NT PRO-BNP 18 pg/mL (<125); Potassium 3.3 mmol/L (3.5-5.1); Protein, Total 7.6 g/dL (6.4-8.2); Sodium Level 137 mmol/L (136-145); Troponin (Emerg Dept Use Only) < 0.02 ng/mL (0.0-0.045)
--- NOTE | 2018-07-24 06:24 | EKG ---
Test Date: 2018-07-24 Test Time: 05:06:33 Shingle Inspector: SHIMA MEASUREMENT RESULTS: Intervals: Rate: 68 WA: 158 QRSD: 90 QT: 424 QTc: 450 [place]: P: 35 WA: 158 QRS: 46 T: 46 INTERPRETIVE STATEMENTS: Normal sinus rhythm Normal ECG Compared to ECG 11/29/2017 12:53:14 Sinus arrhythmia no longer present Electronically Signed On 07-24-18 06:23:12 ON AIR HOST by Darryl Maynard
[2018-07-24 06:50] LABS: Urine Blood 3+ (NEG); Urine Glucose NEGATIVE (NEG); Urine Protein NEGATIVE (NEG)
--- NOTE | 2018-07-24 07:52 | RAD REPORT ---
EXAM DESCRIPTION: CT - Abdomen Pelvis W Contrast - 07/24/2018 7:40 am CLINICAL HISTORY: Abdominal pain. Vomiting and diarrhea for 2 weeks COMPARISON: 2011 TECHNIQUE: Computed axial tomography of the abdomen and pelvis was obtained. 100 cc Isovue-300 is ad ministered intravenously. Oral contrast was given. All CT scans are performed using dose optimization technique as appropriate and may include automated exposure control or mA/KV adjustment according to patient size. FINDINGS: Fatty liver. Gallbladder upper limits normal caliber The Spleen, pancreas, adrenals and kidneys appear unremarkable. The appendix is normal caliber. There is no evidence of diverticulitis A tiny umbilical hernia. 2 centimeter left ovarian cyst without significant free fluid IMPRESSION: A 2 centimeter left ovarian cyst without significant free fluid
--- NOTE | 2018-07-24 07:59 | EDPHYS ---
Physician Documentation [facility] Name: Arline Ordaz Age: 28 yrs Sex: Female : 1990 Arrival Date: 07/24/2018 Time: 04:44 Bed 16 Private MD: ED Physician Yuri Wilkerson HPI: 07/24 05:29 This 28 yrs old Female presents to ER via Ambulatory with complaints of joyce Vomiting. 05:29 The patient presents to the emergency department with nausea, vomiting, abdominal pain, joyce of the right upper quadrant, left upper quadrant, right lower quadrant and left lower quadrant. Onset: The symptoms/episode began/occurred 14 day(s) ago. Possible causes: unknown. The symptoms are aggravated by nothing. The symptoms are alleviated by nothing. Associated signs and symptoms: The patient has no apparent associated signs or symptoms. Severity of symptoms: At their worst the symptoms were mild moderate in the emergency department the symptoms are unchanged. The patient has not experienced similar symptoms in the past. 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 - Social history:: Smoking status: Patient/guardian denies using tobacco, Patient/guardian denies using alcohol, street drugs. - Ebola Screening: : Patient negative for fever greater than or equal to 101.5 degrees Fahrenheit, and additional compatible Ebola Virus Disease symptoms Patient denies exposure to infectious person Patient denies travel to an Ebola-affected area in the 21 days before illness onset. ROS: 05:30 Constitutional: Negative for fever, chills, and weight loss, Eyes: Negative for injury, joyce pain, redness, and discharge, ENT: Negative for injury, pain, and discharge, Neck: Negative for injury, pain, and swelling, Respiratory: Negative for shortness of breath, cough, wheezing, and pleuritic chest pain, Back: Negative for injury and pain, : Negative for injury, bleeding, discharge, and swelling, MS/Extremity: Negative for injury and deformity, Skin: Negative for injury, rash, and discoloration, Neuro: Negative for headache, weakness, numbness, tingling, and seizure, Psych: Negative for depression, anxiety, suicide ideation, homicidal ideation, and hallucinations, Allergy/Immunology: Negative for hives, rash, and allergies, Endocrine: Negative for neck swelling, polydipsia, polyuria, polyphagia, and marked weight changes, Hematologic/Lymphatic: Negative for swollen nodes, abnormal bleeding, and unusual bruising. 05:30 Cardiovascular: Positive for chest pain, of the chest. 05:30 Respiratory: Positive for 05:30 Abdomen/GI: Positive for abdominal pain, nausea and vomiting, diarrhea. 05:30 MS/extremity: Negative for acute changes. Exam: 05:30 Constitutional: This is a well developed, well nourished patient who is awake, alert, joyce and in no acute distress. Head/Face: Normocephalic, atraumatic. Eyes: Pupils equal round and reactive to light, extra-ocular motions intact. Lids and lashes normal. Conjunctiva and sclera are non-icteric and not injected. Cornea within normal limits. Periorbital areas with no swelling, redness, or edema. ENT: Nares patent. No nasal discharge, no septal abnormalities noted. Tympanic membranes are normal and external auditory canals are clear. Oropharynx with no redness, swelling, or masses, exudates, or evidence of obstruction, uvula midline. Mucous membranes moist. Neck: Trachea midline, no thyromegaly or masses palpated, and no cervical lymphadenopathy. Supple, full range of motion without nuchal rigidity, or vertebral point tenderness. No Meningismus. Chest/axilla: Normal chest wall appearance and motion. Nontender with no deformity. No lesions are appreciated. Cardiovascular: Regular rate and rhythm with a normal S1 and S2. No gallops, murmurs, or rubs. Normal PMI, no JVD. No pulse deficits. Respiratory: Lungs have equal breath sounds bilaterally, clear to auscultation and percussion. No rales, rhonchi or wheezes noted. No increased work of breathing, no retractions or nasal flaring. Back: No spinal tenderness. No costovertebral tenderness. Full range of motion. Female : Normal external genitalia. Skin: Warm, dry with normal turgor. Normal color with no rashes, no lesions, and no evidence of cellulitis. MS/ Extremity: Pulses equal, no cyanosis. Neurovascular intact. Full, normal range of motion. Neuro: Awake and alert, GCS 15, oriented to person, place, time, and situation. Cranial nerves II-XII grossly intact. Motor strength 5/5 in all extremities. Sensory grossly intact. Cerebellar exam normal. Normal gait. 05:30 Abdomen/GI: Inspection: distension, Bowel sounds: normal, Palpation: moderate abdominal tenderness, in all quadrants, Liver: no appreciated palpable abnormalities, Hernia: not appreciated, obese. Vital Signs: 05:05 BP 130 / 80; Pulse 84; Resp 18; Temp 98.3; Pulse Ox 98% ; Weight 120.66 kg; Height 5 rr5 ft. 9 in. (175.26 cm); Pain 7/10; 06:00 BP 125 / 70; Pulse 80; Resp 17; Pulse Ox 99% ; rr5 07:00 BP 121 / 65; Pulse 82; Resp 17; Pulse Ox 98% ; rr5 07:38 BP 106 / 60; Pulse 66; Resp 18; Pulse Ox 100% on R/A; Pain 4/10; ph 08:25 BP 110 / 62; Pulse 72; Resp 18; Temp 97.9; Pulse Ox 99% on R/A; Pain 4/10; ph 05:05 Body Mass Index 39.28 (120.66 kg, 175.26 cm) rr5 MDM: 05:05 Patient medically screened. [facility] 05:30 Data reviewed: vital signs, nurses notes, lab test result(s), EKG, radiologic studies, [facility] CT scan, plain films, ultrasound. 07/24 05:29 Order name: Basic Metabolic Panel [facility] 07/24 05:29 Order name: CBC with Diff; Complete Time: 06:10 [facility] 07/24 05:29 Order name: LFT's [facility] 07/24 05:29 Order name: Magnesium [facility] 07/24 05:29 Order name: NT PRO-BNP [facility] 07/24 05:29 Order name: PT-INR; Complete Time: 06:10 [facility] 07/24 05:29 Order name: Troponin (emerg Dept Use Only); Complete Time: 06:10 [facility] 07/24 05:29 Order name: Lipase; Complete Time: 06:10 [facility] 07/24 05:29 Order name: Urine Culture [facility] 07/24 05:30 Order name: Basic Metabolic Panel; Complete Time: 06:10 [facility] 07/24 05:30 Order name: Liver (Hepatic) Function; Complete Time: 06:10 [facility] [place] 07/24 05:30 Order name: Magnesium; Complete Time: 06:10 [facility] 07/24 05:29 Order name: XRAY Chest (1 view) [facility] 07/24 05:29 Order name: EKG; Complete Time: 05:30 [facility] 07/24 05:29 Order name: Cardiac monitoring; Complete Time: 07:38 [facility] 07/24 05:29 Order name: EKG - Nurse/Tech; Complete Time: 07:38 [facility] 07/24 05:29 Order name: IV Saline Lock; Complete Time: 07:38 [facility] 07/24 05:29 Order name: Labs collected and sent; Complete Time: 07:38 [facility] 07/24 05:29 Order name: O2 Per Protocol; Complete Time: 07:39 [facility] 07/24 05:29 Order name: CT Abd/Pelvis - W/Contrast; Complete Time: 07:57 [facility] 07/24 05:29 Order name: US Abdomen Limited [facility] 07/24 05:30 Order name: NT PRO-BNP; Complete Time: 06:10 [facility] 07/24 06:43 Order name: Urine Dipstick--Ancillary (enter results); Complete Time: 06:54 [facility] 07/24 05:29 Order name: O2 Sat Monitoring; Complete Time: 07:59 [facility] 07/24 05:29 Order name: Urine Dipstick-Ancillary (obtain specimen); Complete Time: 07:13 [facility] 07/24 05:29 Order name: Urine Test (obtain specimen); Complete Time: 07:59 [facility] Administered Medications: 05:45 Drug: Zofran 4 mg Route: IVP; Site: left antecubital; rr5 07:11 Follow up: Response: No adverse reaction rr5 05:48 Drug: morphine 4 mg Route: IVP; Site: left antecubital; rr5 07:11 Follow up: Response: No adverse reaction rr5 05:50 Drug: NS 0.9% 1000 ml Route: IV; Rate: 1 bolus; Site: left antecubital; rr5 07:00 Follow up: Response: No adverse reaction; IV Status: Completed infusion; IV Intake: rr5 1000ml 07:00 Drug: NS 0.9% 1000 ml Route: IV; Rate: 125 ml/hr; Site: left antecubital; rr5 08:26 Follow up: Response: No adverse reaction; IV Status: Completed infusion ph 07:30 Drug: Zofran 4 mg Route: IVP; Site: left antecubital; ph 07:59 Follow up: Response: No adverse reaction; Nausea is decreased ph Disposition: 07/24/18 07:58 Discharged to Home. Impression: Abdominal tenderness, Diarrhea, unspecified, Vomiting, Chest pain, unspecified, Follicular cyst of ovary. - Condition is Stable. - Discharge Instructions: Abdominal Pain, Adult, Food Choices to Help Relieve Diarrhea, Adult, Nonspecific Chest Pain, Diarrhea, Adult, Nausea and Vomiting, Adult, Nausea and Vomiting, Adult, Welv-ks-Wfjm, Abdominal Pain, Adult, Vrvx-sw-Xpvf, Nonspecific Chest Pain, Zdbj-qj-Edsg, Diarrhea, Adult, Gslz-hw-Xffw, Aspirin and Your Heart, Ovarian Cyst. - Prescriptions for Bentyl 20 mg Oral Tablet - take 1 tablet by ORAL route every 6 hours As needed; 20 tablet. Pepcid 20 mg Oral Tablet - take 1 tablet by ORAL route every 12 hours for 10 days; 20 tablet. Zofran 4 mg Oral Tablet - take 1 tablet by ORAL route every 12 hours As needed; 20 tablet. promethazine 25 mg Oral Tablet - take 1 tablet by ORAL route every 6 hours As needed; 20 tablet. - Medication Reconciliation Form, Thank You Letter, Antibiotic Education, Prescription Opioid Use, Work release form form. - Follow up: Private Physician; When: 2 - 3 days; Reason: Recheck today's complaints, Continuance of care, Re-evaluation by your physician. Follow up: Abby Freed; When: 2 - 3 days; Reason: Recheck today's complaints, Re-evaluation by your physician. - Problem is new. - Symptoms have improved. Signatures: Dispatcher [employer] EDMS Yuri Wilkerson MD MD cha Therrien, Shelly, SUPERVISOR REAL ESTATE OFFICE-C SUPERVISOR REAL ESTATE OFFICE-Ryanw Bryanna Lutz RN RN Peewee Choudhury RN RN rr5 Corrections: (The following items were deleted from the chart) 08:29 07:58 07/24/2018 07:58 Discharged to Home. Impression: Abdominal tenderness; Diarrhea, ph unspecified; Vomiting; Chest pain, unspecified; Follicular cyst of ovary. Condition is Stable. Discharge Instructions: Abdominal Pain, Adult, Food Choices to Help Relieve Diarrhea, Adult, Nonspecific Chest Pain, Diarrhea, Adult, Nausea and Vomiting, Adult, Nausea and Vomiting, Adult, Bodi-la-Bidh, Abdominal Pain, Adult, Zzoq-ko-Pmvr, Nonspecific Chest Pain, Tcqb-yh-Gewh, Diarrhea, Adult, Uohj-fr-Invx, Aspirin and Your Heart. Prescriptions for Bentyl 20 mg Oral Tablet - take 1 tablet by ORAL route every 6 hours As needed; 20 tablet, Pepcid 20 mg Oral Tablet - take 1 tablet by ORAL route every 12 hours for 10 days; 20 tablet, Zofran 4 mg Oral Tablet - take 1 tablet by ORAL route every 12 hours As needed; 20 tablet. and Forms are Medication Reconciliation Form, Thank You Letter, Antibiotic Education, Prescription Opioid Use. Follow up: Private Physician; When: 2 - 3 days; Reason: Recheck today's complaints, Continuance of care, Re-evaluation by your physician. Follow up: Abby Freed; When: 2 - 3 days; Reason: Recheck today's complaints, Re-evaluation by your physician. Problem is new. Symptoms have improved. snw
--- NOTE | 2018-07-24 07:59 | ER ---
Nurse's Notes [facility] Name: Arline Ordaz Age: 28 yrs Sex: Female : 1990 Arrival Date: 07/24/2018 Time: 04:44 Bed 16 Private MD: Diagnosis: Abdominal tenderness;Diarrhea, unspecified;Vomiting;Chest pain, unspecified;Follicular cyst of ovary Presentation: 07/24 05:00 Presenting complaint: Patient states: unable to eat for 2 weeks. I vomited all the food rr5 i took. having chest pain radiating to left arm for 2 days pain score of 7/10 and diarrhea for 1 week. Transition of care: patient was not received from another setting of care. Onset of symptoms was June 2018. Risk Assessment: Do you want to hurt yourself or someone else? Patient reports no desire to harm self or others. Initial Sepsis Screen: Does the patient meet any 2 criteria? No. Patient's initial sepsis screen is negative. Does the patient have a suspected source of infection? No. Patient's initial sepsis screen is negative. Care prior to arrival: None. 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 - Social history:: Smoking status: Patient/guardian denies using tobacco, Patient/guardian denies using alcohol, street drugs. - Ebola Screening: : Patient negative for fever greater than or equal to 101.5 degrees Fahrenheit, and additional compatible Ebola Virus Disease symptoms Patient denies exposure to infectious person Patient denies travel to an Ebola-affected area in the 21 days before illness onset. Screenin:00 Abuse screen: Denies threats or abuse. Denies injuries from another. Nutritional rr5 screening: No deficits noted. Tuberculosis screening: No symptoms or risk factors identified. Fall Risk IV access (20 points). Total Pelayo Fall Scale indicates No Risk (0-24 pts). Assessment: 05:00 General: Appears in no apparent distress. uncomfortable, Behavior is calm, cooperative, rr5 appropriate for age. Pain: Complains of pain in abdomen Pain does not radiate. Pain currently is 7 out of 10 on a pain scale. Quality of pain is described as aching, Pain began gradually, Is intermittent. 05:00 Neuro: Level of Consciousness is awake, alert, obeys commands, Oriented to person, rr5 place, time, situation. Cardiovascular: Capillary refill < 3 seconds Patient's skin is warm and dry. Respiratory: Airway is patent Respiratory effort is even, unlabored, Respiratory pattern is regular, symmetrical. GI: Abdomen is round Reports lower abdominal pain, upper abdominal pain, diarrhea, nausea, vomiting. : No signs and/or symptoms were reported regarding the genitourinary system. EENT: No signs and/or symptoms were reported regarding the EENT system. Derm: Skin is intact, Skin temperature is warm. Musculoskeletal: Capillary refill < 3 seconds, Range of motion: intact in all extremities. 06:15 Reassessment: Patient appears in no apparent distress at this time. Patient and/or rr5 family updated on plan of care and expected duration. Pain level reassessed. oral contrast consumed at 0615H ct scan staff aware. 07:00 Reassessment: Patient appears in no apparent distress at this time. Patient and/or rr5 family updated on plan of care and expected duration. Pain level reassessed. no complaints made awaiting for laboratory report and for CT scan Patient states symptoms have improved. 07:36 Reassessment: Patient appears in no apparent distress at this time. Patient and/or ph family updated on plan of care and expected duration. Pain level reassessed. Patient is alert, oriented x 3, equal unlabored respirations, skin warm/dry/pink. Pt resting quietly, rates pain 4/10 but c/o nausea, ERP notified and medication administered, pt taken to CT via wheelchair. 08:23 Reassessment: Patient appears in no apparent distress at this time. Patient and/or ph family updated on plan of care and expected duration. Pain level reassessed. Patient is alert, oriented x 3, equal unlabored respirations, skin warm/dry/pink. Pt given work note and prescriptions x 4 and d/c home w/ SO. Vital Signs: 05:05 BP 130 / 80; Pulse 84; Resp 18; Temp 98.3; Pulse Ox 98% ; Weight 120.66 kg; Height 5 rr5 ft. 9 in. (175.26 cm); Pain 7/10; 06:00 BP 125 / 70; Pulse 80; Resp 17; Pulse Ox 99% ; rr5 07:00 BP 121 / 65; Pulse 82; Resp 17; Pulse Ox 98% ; rr5 07:38 BP 106 / 60; Pulse 66; Resp 18; Pulse Ox 100% on R/A; Pain 4/10; ph 08:25 BP 110 / 62; Pulse 72; Resp 18; Temp 97.9; Pulse Ox 99% on R/A; Pain 4/10; ph 05:05 Body Mass Index 39.28 (120.66 kg, 175.26 cm) rr5 ED Course: 04:44 Patient arrived in ED. ag3 05:00 Peewee Quinones, RN is Primary Nurse. rr5 05:04 Yuri Wilkerson MD is Attending Physician. joyce 05:05 Triage completed. rr5 05:07 Arm band placed on. EKG completed in triage. Results shown to MD. rr5 05:10 Patient has correct armband on for positive identification. Placed in gown. Bed in low rr5 position. Call light in reach. Side rails up X 1. career guidance counselor on. Pulse ox on. NIBP on. 05:12 EKG done, by ED staff, reviewed by Yuri Wilkerson MD. Inserted saline lock: 20 gauge in mt left antecubital area, using aseptic technique. Blood collected. 05:40 X-ray completed. Portable x-ray completed in exam room. Patient tolerated procedure kw well. 05:41 XRAY Chest (1 view) In Process Unspecified. EDMS 06:09 Benita Gil FNP-C is PHCP. snw 07:18 US Abdomen Limited In Process Unspecified. EDMS 07:40 CT completed. Patient tolerated procedure well. Patient moved to CT via wheelchair. vm2 Patient moved back from CT. 07:40 CT Abd/Pelvis - W/Contrast In Process Unspecified. EDMS 07:57 Abby Freed MD is Referral Physician. snw 08:27 No provider procedures requiring assistance completed. IV discontinued, intact, ph bleeding controlled, No redness/swelling at site. Pressure dressing applied. Administered Medications: 05:45 Drug: Zofran 4 mg Route: IVP; Site: left antecubital; rr5 07:11 Follow up: Response: No adverse reaction rr5 05:48 Drug: morphine 4 mg Route: IVP; Site: left antecubital; rr5 07:11 Follow up: Response: No adverse reaction rr5 05:50 Drug: NS 0.9% 1000 ml Route: IV; Rate: 1 bolus; Site: left antecubital; rr5 07:00 Follow up: Response: No adverse reaction; IV Status: Completed infusion; IV Intake: rr5 1000ml 07:00 Drug: NS 0.9% 1000 ml Route: IV; Rate: 125 ml/hr; Site: left antecubital; rr5 08:26 Follow up: Response: No adverse reaction; IV Status: Completed infusion ph 07:30 Drug: Zofran 4 mg Route: IVP; Site: left antecubital; ph 07:59 Follow up: Response: No adverse reaction; Nausea is decreased ph Intake: 07:00 IV: 1000ml; Total: 1000ml. rr5 Outcome: 07:58 Discharge ordered by . snw 08:27 Discharged to home ambulatory, with significant other. ph 08:27 Condition: good 08:27 Discharge instructions given to patient, Instructed on discharge instructions, follow up and referral plans. medication usage, Demonstrated understanding of instructions, follow-up care, medications, Prescriptions given X 4. 08:29 Patient left the ED. ph Signatures: Dispatcher [employer] EDMS Yuri Wilkerson MD MD cha Therrien, Shelly, UPHOLSTERY TECHNICIAN-C UPHOLSTERY TECHNICIAN-Csnw Tessa Fan Patricia, RN RN Sarai Sousa Moriah mt Gomez, Alice ag3 Roque, Raymond, RN RN rr5
[2018-07-24 08:40] VITALS: BP 110/62; TEMP 97.9; O2SAT 99
--- NOTE | 2018-07-24 09:13 | RAD REPORT ---
EXAM DESCRIPTION: Junaid Single View07/24/2018 5:40 am CLINICAL HISTORY: Chest pain COMPARISON: 2016 FINDINGS: The lungs appear clear of acute infiltrate. The heart is normal size IMPRESSION: No acute abnormalities displayed
--- NOTE | 2018-07-24 09:57 | RAD REPORT ---
EXAM DESCRIPTION: US - Abdomen Exam Limited - 07/24/2018 7:20 am CLINICAL HISTORY: Abdominal pain. COMPARISON: None. FINDINGS: The gallbladder wall is not thickened. A gallstone is not seen. The biliary tree is normal caliber. IMPRESSION: Unremarkable gallbladder ultrasound.
== END 2018-07-24 08:29 | disposition home or self-care (01) ==
LOC: ER 04:42
DX: N83.00 Follicular cyst of ovary, unspecified side (principal); R11.10 Vomiting, unspecified; R19.7 Diarrhea, unspecified; R07.9 Chest pain, unspecified; R01.1 Cardiac murmur, unspecified
CPT/HCPCS: 36415; 71045; 74177; 76705; 80048; 80076; 81003; 83690; 83735; 83880; 84484; 85025; 85610; 87086; 87088; 93005; 96361; 96374; 96375; 99285; J2405; J7030; Q9967

== ENCOUNTER 2018-08-31 20:37 | Emergency (ER) | payer BC, SELFPAY ==
[2018-08-31 22:01] LABS: Absolute Lymphocytes (CBC) 2.8 K/uL (0.7-4.9); Absolute Monocytes 0.9 K/uL (0.1-1.3); Absolute Neutrophil 4.7 K/uL (1.8-8.0); Basophils % 0.5 % (0-1.3); Eosinophils % 6.3 % (0-4.4); Hematocrit 38.7 % (36.0-45.0); Lymphocytes % 31.5 % (15.3-44.8); MPV 9.5 fL (7.6-11.3); Monocytes % 9.8 % (3.3-12.3); RBC Red Blood Cell Count 4.67 M/uL (3.86-4.86)
[2018-08-31 22:02] LABS: Protime INR 1.01
[2018-08-31 22:19] LABS: ALT/SGPT 43 U/L (12-78); AST/SGOT 23 U/L (15-37); Albumin 3.3 g/dL (3.4-5.0); Alkaline Phosphatase 63 U/L (45-117); BUN Blood Urea Nitrogen 11 mg/dL (7-18); Bicarbonate 26 mmol/L (21-32); Bilirubin Direct < 0.1 mg/dL (0-0.2); Bilirubin Total 0.2 mg/dL (0.2-1.0); Glucose Level 97 mg/dL (74-106); Magnesium 1.7 mg/dL (1.8-2.4); Potassium 3.3 mmol/L (3.5-5.1); Protein, Total 7.6 g/dL (6.4-8.2); Sodium Level 141 mmol/L (136-145); Troponin (Emerg Dept Use Only) < 0.02 ng/mL (0.0-0.045)
[2018-08-31] MEDS ORDERED: MAGNESIUM OXIDE 400 MG TAB ONE (22:48)
[2018-08-31] MEDS ORDERED: POTASSIUM 25 MEQ EFFERV TAB ONE (22:49)
[2018-08-31] MEDS ORDERED: NA CHLORIDE 0.9% 1,000 ML ONE (22:49)
[2018-08-31 23:51] LABS: Urine Blood NEGATIVE (NEG); Urine Glucose NEGATIVE (NEG); Urine Protein TRACE (NEG); Urine Specific Gravity >1.030 (1.005-1.030)
--- NOTE | 2018-08-31 23:56 | ER ---
Nurse's Notes [facility] Name: Arline Ordaz Age: 28 yrs Sex: Female : 1990 Arrival Date: 08/31/2018 Time: 20:39 Bed 17 Private MD: Ramesh Nielsen H Diagnosis: Syncope and collapse Presentation: 08/31 20:44 Presenting complaint: Patient states: bending over at work, pt c/o blurred vision and ak1 had a syncopal episode. pt denies fall. EMS called to scene, pt denied transport. pt A\T\OX4 with steady gait to ER lobby from parking lot. Transition of care: patient was not received from another setting of care. Onset of symptoms was August 31, 2018. Risk Assessment: Do you want to hurt yourself or someone else? Patient reports no desire to harm self or others. Care prior to arrival: None. 20:44 Method Of Arrival: Wheelchair ak1 20:44 Acuity: ALPESH 3 ak1 20:48 Initial Sepsis Screen: Does the patient meet any 2 criteria? No. Patient's initial cc3 sepsis screen is negative. Does the patient have a suspected source of infection? No. Patient's initial sepsis screen is negative. Triage Assessment: 20:46 General: Appears in no apparent distress. Behavior is cooperative. Neuro: Level of ak1 Consciousness is awake, alert, obeys commands, Oriented to person, place, time, situation, Appropriate for age Bath Mix Operator are equal bilaterally Moves all extremities. 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 . 20:48 Pain: Denies pain. 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 - Social history:: Smoking status: Patient/guardian denies using tobacco, Patient uses alcohol, pt stated she drank last night. - Ebola Screening: : No symptoms or risks identified at this time. Screenin:48 Abuse screen: Denies threats or abuse. Denies injuries from another. Nutritional cc3 screening: No deficits noted. Tuberculosis screening: No symptoms or risk factors identified. Fall Risk Ambulatory Aid- None/Bed Rest/Nurse Assist (0 pts). Gait- Normal/Bed Rest/Wheelchair (0 pts) Mental Status- Oriented to own ability (0 pts). Assessment: 20:48 Cardiovascular: Rhythm is regular. cc3 21:18 Reassessment: Patient appears in no apparent distress at this time. Patient and/or cc3 family updated on plan of care and expected duration. Pain level reassessed. Patient is alert, oriented x 3, equal unlabored respirations, skin warm/dry/pink. Neuro: Level of Consciousness is awake, alert, obeys commands, Oriented to person, place, time, situation, Appropriate for age. 22:25 Reassessment: Patient appears in no apparent distress at this time. Patient and/or cc3 family updated on plan of care and expected duration. Pain level reassessed. Patient is alert, oriented x 3, equal unlabored respirations, skin warm/dry/pink. 23:45 Reassessment: Patient appears in no apparent distress at this time. Patient and/or cc3 family updated on plan of care and expected duration. Pain level reassessed. Patient is alert, oriented x 3, equal unlabored respirations, skin warm/dry/pink. 04 00:00 Reassessment: Patient appears in no apparent distress at this time. Patient and/or cc3 family updated on plan of care and expected duration. Pain level reassessed. Patient is alert, oriented x 3, equal unlabored respirations, skin warm/dry/pink. MERCEDEZ Woods discharged the patient home, no prescription given. IV cannula removed and patient left ER vitally stable and ambulatory. Vital Signs: 08/31 20:43 BP 112 / 68; Pulse 82; Resp 18; Temp 97.7(O); Pulse Ox 100% on R/A; Weight 113.4 kg ak1 (R); Height 5 ft. 9 in. (175.26 cm) (R); Pain 3/10; 21:10 BP 107 / 60 Supine; Pulse 74; Resp 17 S; Pulse Ox 99% on R/A; cc3 21:11 BP 116 / 66 Sitting; Pulse 78; Resp 18 S; Pulse Ox 99% on R/A; cc3 21:13 BP 111 / 69 Standing; Pulse 89; Resp 17 S; Pulse Ox 100% on R/A; cc3 22:33 BP 102 / 84; Pulse 88; Resp 13 S; Pulse Ox 100% on R/A; cc3 23:56 BP 125 / 67; Pulse 75; Resp 16 S; Pulse Ox 100% on R/A; cc3 20:43 Body Mass Index 36.92 (113.40 kg, 175.26 cm) ak1 ED Course: 20:39 Patient arrived in ED. am2 20:39 Ramesh Nielsen DO is Private Physician. am2 20:43 Arm band placed on Patient placed in waiting room, Patient notified of wait time. ak1 20:46 Triage completed. ak1 20:48 Liz Rankin is Primary Nurse. cc3 20:48 Patient has correct armband on for positive identification. Call light in reach. Side cc3 rails up X 1. illuminator on. Pulse ox on. NIBP on. 20:49 Yuri Krishnamurthy PA is PHCP. cp 20:49 Madan Cid MD is Attending Physician. cp 21:40 Inserted saline lock: 20 gauge in left antecubital area, using aseptic technique. Blood cc3 collected. 22:19 US Extremity Venous Unilateral Ltd In Process Unspecified. EDMS 22:56 XRAY Chest (1 view) In Process Unspecified. EDMS 23:15 CT Head Brain wo Cont In Process Unspecified. EDMS 23:55 PHCP role handed off by Yuri Krishnamurthy PA jr8 23:55 Denny Woods PA is PHCP. jr8 04 00:00 No provider procedures requiring assistance completed. IV discontinued, intact, cc3 bleeding controlled, No redness/swelling at site. Pressure dressing applied. Administered Medications: 08/31 22:40 Drug: Magnesium 400 mg Route: PO; cc3 23:38 Follow up: Response: No adverse reaction cc3 22:40 Drug: Potassium Effervescent Tablet 25 mEq Route: PO; cc3 23:38 Follow up: Response: No adverse reaction cc3 22:43 Drug: NS 0.9% 1000 ml Route: IV; Rate: 1 bolus; Site: left antecubital; cc3 23:43 Follow up: Response: No adverse reaction; IV Status: Completed infusion; IV Intake: cc3 1000ml Point of Care Testing: Blood Glucose: 22:50 Blood Glucose: 92 mg/dL; cc3 Ranges: Intake: 23:43 IV: 1000ml; Total: 1000ml. cc3 Outcome: 23:55 Discharge ordered by MD. franco 09/01 00:00 Discharged to home ambulatory, with family. cc3 Condition: stable Discharge instructions given to patient, family, Instructed on discharge instructions, follow up and referral plans. Demonstrated understanding of instructions, follow-up care. 00:11 Patient left the ED. cc3 Signatures: Dispatcher [employer] EDMS Denny Woods PA PA jrCinthia Henry RN RN ak1 Yuri Krishnamurthy PA PA cp Moreno, Amanda am2 Cordel, Charlene cc3 Corrections: (The following items were deleted from the chart) 08/31 23:56 23:56 Pulse 75bpm; Resp 18bpm; Spontaneous; Pulse Ox 100% RA; cc3 cc3 23:58 23:56 Pulse 75bpm; Resp 16bpm; Spontaneous; Pulse Ox 100% RA; cc3 cc3
--- NOTE | 2018-08-31 23:56 | EDPHYS ---
Physician Documentation [facility] Name: Arline Ordaz Age: 28 yrs Sex: Female : 1990 Arrival Date: 08/31/2018 Time: 20:39 Bed 17 Private MD: Ramesh Nielsen H ED Physician Madan Cid HPI: 08/31 21:25 This 28 yrs old Female presents to ER via Wheelchair with complaints of cp Syncope. 21:25 The patient has experienced syncope, lost consciousness. Onset: The symptoms/episode cp began/occurred just prior to arrival. Duration: This was a single episode, that lasted an unknown period of time. 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 Associated injury: The patient did not suffer any apparent associated injury. Associated signs and symptoms: Pertinent negatives: abdominal pain, chest pain, dizziness, headache, weakness. Current symptoms: Currently, the patient is not experiencing any symptoms. 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 - Social history:: Smoking status: Patient/guardian denies using tobacco, Patient uses alcohol, pt stated she drank last night. - Ebola Screening: : No symptoms or risks identified at this time. ROS: 21:30 Constitutional: Negative for body aches, chills, fever, poor PO intake. cp 21:30 Eyes: Positive for blurry vision, Negative for discharge, pain, redness, vision loss. cp 21:30 ENT: Negative for drainage from ear(s), ear pain, sinus congestion, sinus pain, sore throat, difficulty swallowing, difficulty handling secretions. 21:30 Neck: Negative for pain with movement, pain at rest, stiffness, tenderness, bony tenderness. 21:30 Cardiovascular: Negative for chest pain, edema, palpitations. 21:30 Respiratory: Negative for cough, shortness of breath, wheezing. 21:30 Abdomen/GI: Negative for abdominal pain, nausea, vomiting, and diarrhea, constipation, black/tarry stool, rectal bleeding. 21:30 Back: Negative for pain at rest, pain with movement, radiated pain. 21:30 : Negative for urinary symptoms, vaginal bleeding, vaginal discharge. 21:30 Skin: Negative for cellulitis, rash. 21:30 Neuro: Positive for dizziness, syncope, Negative for altered mental status, headache, seizure activity, speech changes, weakness. 21:30 All other systems are negative. Exam: 21:10 ECG was reviewed by the Attending Physician. cp 21:35 Constitutional: The patient appears in no acute distress, alert, awake, cp non-diaphoretic, non-toxic, well developed, well nourished. 21:35 Head/Face: Normocephalic, atraumatic. Eyes: Pupils equal round and reactive to light, cp extra-ocular motions intact. Lids and lashes normal. Conjunctiva and sclera are non-icteric and not injected. Cornea within normal limits. Periorbital areas with no swelling, redness, or edema. ENT: Nares patent. No nasal discharge, no septal abnormalities noted. Tympanic membranes are normal and external auditory canals are clear. Oropharynx with no redness, swelling, or masses, exudates, or evidence of obstruction, uvula midline. Mucous membranes moist. Neck: Trachea midline, no thyromegaly or masses palpated, and no cervical lymphadenopathy. Supple, full range of motion without nuchal rigidity, or vertebral point tenderness. No Meningismus. Chest/axilla: Normal chest wall appearance and motion. Nontender with no deformity. No lesions are appreciated. 21:35 Cardiovascular: Rate: normal, Rhythm: regular, Pulses: Pulses are 2+ in right radial artery and left radial artery. Heart sounds: murmur, not appreciated, rub, not appreciated, gallop, not appreciated, Edema: is not appreciated, JVD: is not appreciated. 21:35 Respiratory: the patient does not display signs of respiratory distress, Respirations: normal, no use of accessory muscles, no retractions, no splinting, no tachypnea, labored breathing, is not present, Breath sounds: are clear throughout, no decreased breath sounds, no stridor, no wheezing. 21:35 Abdomen/GI: Inspection: abdomen appears normal, Bowel sounds: active, all quadrants, Palpation: abdomen is soft and non-tender, in all quadrants. 21:35 Back: pain, is absent, ROM is normal. 21:35 Skin: cellulitis, is not appreciated, no rash present. 21:35 Neuro: Orientation: to person, place \T\ time. Mentation: is normal, Cerebellar function: is grossly normal, Motor: moves all fours, strength is normal, Sensation: is normal. Vital Signs: 20:43 BP 112 / 68; Pulse 82; Resp 18; Temp 97.7(O); Pulse Ox 100% on R/A; Weight 113.4 kg ak1 (R); Height 5 ft. 9 in. (175.26 cm) (R); Pain 3/10; 21:10 BP 107 / 60 Supine; Pulse 74; Resp 17 S; Pulse Ox 99% on R/A; cc3 21:11 BP 116 / 66 Sitting; Pulse 78; Resp 18 S; Pulse Ox 99% on R/A; cc3 21:13 BP 111 / 69 Standing; Pulse 89; Resp 17 S; Pulse Ox 100% on R/A; cc3 22:33 BP 102 / 84; Pulse 88; Resp 13 S; Pulse Ox 100% on R/A; cc3 23:56 BP 125 / 67; Pulse 75; Resp 16 S; Pulse Ox 100% on R/A; cc3 20:43 Body Mass Index 36.92 (113.40 kg, 175.26 cm) ak1 MDM: 20:57 Patient medically screened. cp 22:00 Differential Diagnosis: cardiac arrhythmia, drug effect, GI bleed, idiopathic syncope, cp , seizure, transient ischemic attack, vasovagal episode. 23:54 Data reviewed: vital signs, nurses notes, lab test result(s), EKG, radiologic studies, jr8 CT scan. Data interpreted: Pulse oximetry: on room air is 100 %. Interpretation: normal. Counseling: I had a detailed discussion with the patient and/or guardian regarding: the historical points, exam findings, and any diagnostic results supporting the discharge/admit diagnosis, lab results, radiology results, the need for outpatient follow up, a family practitioner, to return to the emergency department if symptoms worsen or persist or if there are any questions or concerns that arise at home. Response to treatment: the patient's symptoms have resolved after treatment. 08/31 21:27 Order name: Basic Metabolic Panel; Complete Time: 22:20 cp / 22:20 Interpretation: Normal except: K 3.3; GFR 89. cp / 21:27 Order name: CBC with Diff; Complete Time: 22:19 cp / 21:27 Order name: LFT's; Complete Time: 22:20 cp 08/31 21:27 Order name: Magnesium; Complete Time: 22:20 cp / 22:21 Interpretation: Abnormal: MG 1.7. cp / 21:27 Order name: PT-INR; Complete Time: 22:19 cp 08/31 21:27 Order name: Troponin (emerg Dept Use Only); Complete Time: 22:20 cp 08/31 21:27 Order name: D-Dimer; Complete Time: 22:19 cp 08/31 21:27 Order name: US Extremity Venous Unilateral Ltd cp 08/31 21:36 Order name: CT Head Brain wo Cont cp 08/31 22:20 Order name: XRAY Chest (1 view) cp / 23:37 Order name: Urine Dipstick--Ancillary (enter results); Complete Time: 23:54 mw2 08/31 23:37 Order name: Urine --Ancillary (enter results); Complete Time: 23:54 mw2 08/31 20:49 Order name: EKG; Complete Time: 20:49 cp /03 20:49 Order name: EKG - Nurse/Tech; Complete Time: 21:12 cp / 20:58 Order name: Urine Dipstick-Ancillary (obtain specimen); Complete Time: 23:39 cp 02/03 20:58 Order name: Urine Test (obtain specimen); Complete Time: 23:39 cp 02/03 20:58 Order name: Orthostatics; Complete Time: 21:19 cp 08/31 21:27 Order name: Cardiac monitoring; Complete Time: 21:46 cp 02/ 21:27 Order name: IV Saline Lock; Complete Time: 21:46 cp / 21:27 Order name: Labs collected and sent; Complete Time: 21:46 cp 08/31 21:27 Order name: O2 Per Protocol; Complete Time: 21:30 cp 02 21:27 Order name: O2 Sat Monitoring; Complete Time: 21:30 cp EC:10 Rate is 71 beats/min. Rhythm is regular. MA interval is normal. QRS interval is normal. cp QT interval is normal. T waves are Flattened in lead III. Interpreted by me. Reviewed by me. Administered Medications: 22:40 Drug: Magnesium 400 mg Route: PO; cc3 23:38 Follow up: Response: No adverse reaction cc3 22:40 Drug: Potassium Effervescent Tablet 25 mEq Route: PO; cc3 23:38 Follow up: Response: No adverse reaction cc3 22:43 Drug: NS 0.9% 1000 ml Route: IV; Rate: 1 bolus; Site: left antecubital; cc3 23:43 Follow up: Response: No adverse reaction; IV Status: Completed infusion; IV Intake: cc3 1000ml Point of Care Testing: Blood Glucose: 22:50 Blood Glucose: 92 mg/dL; cc3 Ranges: Critical Glucose Levels:Adult <50 mg/dl or >400 mg/dl <40 mg/dl or >180 mg/dl Disposition: 09/01 00:15 Chart complete. cp 02:51 Co-signature as Attending Physician, Madan Cid MD. Disposition: 08/31/18 23:55 Discharged to Home. Impression: Syncope and collapse. - Condition is Stable. - Discharge Instructions: Syncope. - Medication Reconciliation Form, Thank You Letter, Antibiotic Education, Prescription Opioid Use, Work release form form. - Follow up: Private Physician; When: 1 - 2 days; Reason: Recheck today's complaints. - Problem is new. - Symptoms are resolved. Signatures: Dispatcher [employer] EDDenny Hooper PA PA jr8 Cinthia Esquivel RN RN ak1 Yuri Krishnamurthy PA PA cp Starr, Gregory, MD MD Liz Rankin cc3 Corrections: (The following items were deleted from the chart) 08/31 22:28 08/30 21:30 Constitutional: Negative for body aches, chills, fever, poor PO intake, cp cp 08/31 22:28 08/30 21:30 Eyes: Positive for blurry vision, Negative for discharge, pain, redness, cp vision loss, cp 08/31 22:28 08/30 21:30 ENT: Negative for drainage from ear(s), ear pain, sore throat, difficulty cp swallowing, difficulty handling secretions, cp 08/31 21:08/30 21:30 Cardiovascular: Negative for chest pain, edema, palpitations, cp cp 08/31 21:08/30 21:30 Respiratory: Negative for cough, shortness of breath, wheezing, cp cp 08/31 21:08/30 21:30 Neck: Negative for injury, pain, and swelling, cp cp 08/31 21:08/30 21:30 Abdomen/GI: Negative for abdominal pain, nausea, vomiting, and diarrhea, cp constipation, anorexia, black/tarry stool, rectal bleeding, cp 08/31 21:08/30 21:30 : Negative for urinary symptoms, pelvic pain, vaginal bleeding, cp cp 08/31 21:08/30 21:30 Skin: Negative for cellulitis, rash, cp cp 08/31 21:08/30 21:30 MS/extremity: Negative for injury or acute deformity, decreased range of cp motion, cp 08/31 21:08/30 21:30 Neuro: Positive for syncope, Negative for altered mental status, dizziness, cp headache, seizure activity, speech changes, weakness, cp 08/31 21:08/30 21:30 All other systems are negative, cp cp 09/01 00:11 08/31 23:55 08/31/2018 23:55 Discharged to Home. Impression: Syncope and collapse. cc3 Condition is Stable. Discharge Instructions: Syncope. Forms are Medication Reconciliation Form, Thank You Letter, Antibiotic Education, Prescription Opioid Use. Follow up: Private Physician; When: 1 - 2 days; Reason: Recheck today's complaints. Problem is new. Symptoms are resolved. jr8
[2018-09-01 01:31] VITALS: TEMP 97.7
[2018-09-01 01:36] VITALS: O2SAT 100
[2018-09-01 01:38] VITALS: BP 125/67
--- NOTE | 2018-09-01 07:23 | EKG ---
Test Date: 2018-08-31 Test Time: 21:03:41 Clinical Staff Rn: JAMI MEASUREMENT RESULTS: Intervals: Rate: 71 IN: 140 QRSD: 90 QT: 422 QTc: 458 [place]: P: 20 IN: 140 QRS: 39 T: 37 INTERPRETIVE STATEMENTS: Normal sinus rhythm Normal ECG Compared to ECG 07/24/2018 05:06:33 No significant changes Electronically Signed On 09-01-18 07:15:02 PLANT PHYSIOLOGY TEACHER by Darryl Maynard
--- NOTE | 2018-09-01 08:11 | RAD REPORT ---
EXAM DESCRIPTION: US - Extremity Venous Uni Ltd - 08/31/2018 10:17 pm CLINICAL HISTORY: PAIN Leg swelling and edema. COMPARISON: No comparisons FINDINGS: Right lower extremity venous system was interrogated with Doppler technique. Normal flow, compressibility and augmentation was noted. There is no DVT present. IMPRESSION: No evidence of right lower extremity deep venous thrombosis.
--- NOTE | 2018-09-01 08:13 | RAD REPORT ---
EXAM DESCRIPTION: RAD - Chest Single View - 08/31/2018 10:56 pm CLINICAL HISTORY: syncope Chest pain. COMPARISON: Chest Single View dated 07/24/2018; CHEST SINGLE VIEW dated 10/12/2015 FINDINGS: Portable technique limits examination quality. The lungs are grossly clear. The heart is normal in size. No displaced fractures. IMPRESSION: No acute intrathoracic process suspected.
--- NOTE | 2018-09-01 14:25 | RAD REPORT ---
EXAM DESCRIPTION: CT Head Without Intravenous Contrast. CLINICAL HISTORY: The patient is 28 years old and is Female; SYNCOPE. COMPARISON: No relevant prior studies. TECHNIQUE: Axial computed tomography images of the head/brain without intravenous contrast. Sagittal and coronal reformatted images were created and reviewed. This CT exam was performed using one or more of the fo llowing dose reduction techniques: Automated exposure control, adjustment of the mA and/or kV accordi ng to patient size, and/or use of iterative reconstruction technique. FINDINGS: Brain: Unremarkable. The cramer-white matter differentiation is preserved. No hemorrhage. No significant white matter disease. No edema. No extra-axial fluid collections. Ventricles: Unremarkable. No ventriculomegaly. Bones/Joints: No acute fracture. Soft tissues: Unremarkable. Sinuses: Mucoperiosteal thickening of the ethmoid air cells and right maxillary sinus is present. Mastoid air cells: Unremarkable as visualized. No mastoid effusion. IMPRESSION: No acute intracranial findings . Electronically signed by: Cathy Holden MD 08/31/2018 11:18 PM [employer] P[employer]NCER Due to temporary technical issues with the PACS/Fluency reporting system, reports are being signed by the in house radiologist as a courtesy to ensure prompt reporting. The interpreting radiologist is f ully responsible for the content of the report.
== END 2018-09-01 00:11 | disposition home or self-care (01) ==
LOC: ER 20:37
DX: R55 Syncope and collapse (principal); R01.1 Cardiac murmur, unspecified
CPT/HCPCS: 36415; 70450; 71045; 80048; 80076; 81003; 81025; 82962; 83735; 84484; 85025; 85379; 85610; 93005; 93971; 96360; 99284; J7030

== ENCOUNTER 2019-01-13 07:42 | Day surgery (SDC) | payer BC, SELFPAY ==
--- OUTSIDE RECORDS SUMMARY | 2019-01-13 07:45 | XMS REPORT ---
:1990 [facility] Address [address] [place] [address] [address] [place] [address] Care Team Providers Name Role Phone Unavailable Unavailable Unavailable Problems This patient has no known problems. Allergies, Adverse Reactions, Alerts This patient has no known allergies or adverse reactions. Medications This patient has no known medications.
[2019-01-13] MEDS ORDERED: ONDANSETRON 4 MG/2 ML VIAL ONE ×3 (08:34→13:58)
[2019-01-13] MEDS ORDERED: FENTANYL CITR 100 MCG/2 ML ONE ×2 (08:34→11:51)
[2019-01-13] MEDS ORDERED: NA CHLORIDE 0.9% 1,000 ML ONE ×2 (08:34→09:39)
[2019-01-13 08:43] LABS: Absolute Lymphocytes (CBC) 1.8 K/uL (0.7-4.9); Basophils % 0.4 % (0-1.3); Eosinophils % 0.8 % (0-4.4); Hematocrit 39.9 % (36.0-45.0); Lymphocytes % 14.9 % (15.3-44.8); MPV 8.6 fL (7.6-11.3); Monocytes % 4.4 % (3.3-12.3)
[2019-01-13 09:05] LABS: Urine Blood TRACE (NEG); Urine Glucose TRACE (NEG); Urine Protein 1+ (NEG); Urine Specific Gravity >1.030 (1.005-1.030)
[2019-01-13 09:13] LABS: Urine Amorphous Sediment 1+ /HPF (NONE SEEN); Urine Bacteria <20 /HPF (<20); Urine Culture Reflex Order NOT NEEDED; Urine Mucus 2+ /HPF (NONE SEEN); Urine RBC <5 /HPF (NONE SEEN)
[2019-01-13 09:59] LABS: Potassium 4.3 mmol/L (3.5-5.1)
--- NOTE | 2019-01-13 10:24 | RAD REPORT ---
EXAM DESCRIPTION: US - Transvaginal OB - 01/13/2019 9:38 am CLINICAL HISTORY: VAGINAL BLEEDING COMPARISON: <Comparisons> FINDINGS: The uterus measures 10.6 x 6.0 x 5.8 cm. The endometrium measures 13 mm, mildly thickened. There is no finding to indicate IUP. The right ovary was obscured by bowel gas. No adnexal masses. No significant pelvic free fluid. The maternal adnexa and left ovary are within normal limits. Normal Doppler blood flow was demonstrat ed to the left ovary. IMPRESSION: A normal IUP is not visualized within the uterus. In this setting of an elevated HCG lev el, the above detailed findings would indicate a of unknown location. Early IUP which is no t yet visualized, recent spontaneous and ectopic all remain possibilities at this stage. Recommend followup serial HCG levels and follow-up pelvic sonography in 7-10 days.
--- NOTE | 2019-01-13 11:04 | ER ---
Nurse's Notes [facility] Name: Arline Ordaz Age: 28 yrs Sex: Female : 1990 Arrival Date: 01/13/2019 Time: 07:43 Bed 15 Private MD: Diagnosis: Incomplete spontaneous with other complications Presentation: 01/13 07:51 Presenting complaint: Patient states: abdominal pain that started at 3 am Pt states she ls4 believes she passed the baby in the toilet. 2 pads since 3 am. Transition of care: patient was not received from another setting of care. Onset of symptoms was January 13, 2019 at 03:00. Risk Assessment: Do you want to hurt yourself or someone else? Patient reports no desire to harm self or others. Initial Sepsis Screen: Does the patient meet any 2 criteria? No. Patient's initial sepsis screen is negative. Does the patient have a suspected source of infection? No. Patient's initial sepsis screen is negative. Care prior to arrival: None. 07:51 Method Of Arrival: EMS: [facility] 07:51 Acuity: ALPESH 3 ls4 Triage Assessment: 07:54 General: Appears uncomfortable, obese, Behavior is anxious, fussy. Pain: Complains of ls4 pain in abdomen Pain currently is 10 out of 10 on a pain scale. Quality of pain is described as "just hurts". GI: Abdomen is obese, Bowel sounds present X 4 quads. Abd is non tender X 4 quads Reports. : Reports vaginal bleeding that is with clots. Musculoskeletal: No deficits noted. 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 - Social history:: Smoking status: Patient/guardian denies using tobacco. - Ebola Screening: : Patient negative for fever greater than or equal to 101.5 degrees Fahrenheit, and additional compatible Ebola Virus Disease symptoms Patient denies exposure to infectious person Patient denies travel to an Ebola-affected area in the 21 days before illness onset No symptoms or risks identified at this time. Screenin:58 Abuse screen: Denies threats or abuse. Nutritional screening: No deficits noted. tw2 Tuberculosis screening: No symptoms or risk factors identified. Fall Risk None identified. Assessment: 08:00 General: Appears uncomfortable, Behavior is anxious, fussy. ls4 08:00 Pain: Complains of pain in left lower quadrant and right lower quadrant Pain currently ls4 is 10 out of 10 on a pain scale. Cardiovascular: No deficits noted. Respiratory: No deficits noted. GI: No deficits noted. : Urine is clear, Reports vaginal bleeding that is with clots. 09:00 Reassessment: Patient and/or family updated on plan of care and expected duration. Pain ls4 level reassessed. Patient is alert, oriented x 3, equal unlabored respirations, skin warm/dry/pink. 10:00 Reassessment: Patient and/or family updated on plan of care and expected duration. Pain ls4 level reassessed. Patient is alert, oriented x 3, equal unlabored respirations, skin warm/dry/pink. 11:00 Reassessment: Patient and/or family updated on plan of care and expected duration. Pain ls4 level reassessed. Patient is alert, oriented x 3, equal unlabored respirations, skin warm/dry/pink. 12:02 Reassessment: Patient and/or family updated on plan of care and expected duration. Pain ls4 level reassessed. Patient is alert, oriented x 3, equal unlabored respirations, skin warm/dry/pink. Vital Signs: 07:54 BP 101 / 51; Pulse 63; Resp 16; Temp 98.4; Pulse Ox 99% on R/A; Weight 136.08 kg; ls4 Height 5 ft. 3 in. (160.02 cm); Pain 10/10; 09:04 BP 100 / 53; Pulse 57; Resp 16; Pulse Ox 99% on R/A; Pain 7/10; ls4 10:00 BP 111 / 78; Pulse 63; Resp 16; Pulse Ox 98% on R/A; Pain 5/10; ls4 11:13 BP 116 / 77; Pulse 64; Resp 16; Pulse Ox 100% on R/A; Pain 5/10; ls4 11:50 BP 107 / 74; Pulse 66; Resp 16; Pulse Ox 100% on R/A; Pain 3/10; ls4 07:54 Body Mass Index 53.14 (136.08 kg, 160.02 cm) ls4 ED Course: 07:43 Patient arrived in ED. ls4 07:46 Yuri Krishnamurthy PA is PHCP. cp 07:46 Moshe Britton MD is Attending Physician. cp 07:50 Patient has correct armband on for positive identification. Placed in gown. Bed in low mh5 position. Call light in reach. Side rails up X 1. cardiac monitor technician on. Pulse ox on. NIBP on. 07:53 Triage completed. ls4 07:54 Arm band placed on left wrist. ls4 08:30 Perri Giron, JOSE is Primary Nurse. ls4 08:44 Initial lab(s) drawn, by mo, sent to lab. Urine collected: straight cath specimen, mh5 clear, Amount Returned: 100mL T\\T\\S collected, blood band applied to patient. Inserted saline lock: 20 gauge in left antecubital area, using aseptic technique. Blood collected. 09:39 Transvaginal OB US Sent. ls4 09:41 Transvaginal OB US In Process Unspecified. EDMS 10:58 José Miguel Landeros MD is Hospitalizing Provider. cp 11:20 Assist provider with pelvic exam: Set up pelvic tray. Performed by Yuri NEWSOME ls4 Patient tolerated well. Patient admitted, IV remains in place. Administered Medications: 08:20 Drug: Zofran 4 mg Route: IVP; Site: left antecubital; ls4 08:50 Follow up: Response: No adverse reaction; Marked relief of symptoms ls4 08:20 Drug: fentaNYL (PF) 25 mcg Route: IVP; Site: left antecubital; ls4 08:50 Follow up: Response: No adverse reaction; No change in condition; Pain is unchanged, ls4 physician notified 08:20 Drug: NS 0.9% 1000 ml Route: IV; Rate: 1 bolus; Site: left antecubital; ls4 09:30 Follow up: IV Status: Completed infusion; IV Intake: 1000ml ls4 09:02 Drug: fentaNYL (PF) 25 mcg Route: IVP; Site: left antecubital; ls4 09:55 Follow up: Response: No adverse reaction; Marked relief of symptoms ls4 09:39 Drug: NS 0.9% 1000 ml Route: IV; Rate: 1 bolus; Site: left antecubital; ls4 11:29 Drug: Ancef 1 grams Route: IVPB; Site: left antecubital; ls4 12:04 Follow up: IV Status: Infusion continued upon admission ls4 Intake: 09:30 IV: 1000ml; Total: 1000ml. ls4 Outcome: 11:00 Decision to Hospitalize by Provider. cp 11:59 Admitted to OR accompanied by nurse, via stretcher, with chart, Report called to ls4 verbal report to OR Nurse 11:59 Condition: stable 11:59 Discharge instructions given to family, Instructed on the need for admit, or consent signed and witnessed. Demonstrated understanding of instructions, follow-up care, procedure 12:03 Patient left the ED. Signatures: Dispatcher [employer] EDND Eileen Camejo RN RN Yuri Krishnamurthy, MERCEDEZ PA Cinda Love RN RN 2 Daisha Wyatt [facility] Perri Giron, RN RN ls4 Corrections: (The following items were deleted from the chart) 11:20 11:18 Allergies: Latex, Natural Rubber; ls4 ls4
--- NOTE | 2019-01-13 11:05 | EDPHYS ---
Physician Documentation [facility] Name: Arline Ordaz Age: 28 yrs Sex: Female : 1990 Arrival Date: 01/13/2019 Time: 07:43 Bed 15 Private MD: ED Physician Moshe Britton HPI: 01/13 07:51 This 28 yrs old Female presents to ER via Unassigned with complaints of cp Abdominal Pain, Vaginal Bleeding. 07:54 The patient presents with abdominal pain in the lower abdomen. Onset: The cp symptoms/episode began/occurred this morning. Associated signs and symptoms: Pertinent positives: nausea, vaginal bleeding times 1 week. The symptoms are described as crampy. 07:55 Severity of pain: in the emergency department the pain is actually worse markedly. 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 - Social history:: Smoking status: Patient/guardian denies using tobacco. - Ebola Screening: : Patient negative for fever greater than or equal to 101.5 degrees Fahrenheit, and additional compatible Ebola Virus Disease symptoms Patient denies exposure to infectious person Patient denies travel to an Ebola-affected area in the 21 days before illness onset No symptoms or risks identified at this time. ROS: 07:55 Constitutional: Negative for body aches, chills, fever, poor PO intake. cp 07:55 Eyes: Negative for injury, pain, redness, and discharge. cp 07:55 ENT: Negative for drainage from ear(s), ear pain, sore throat, difficulty swallowing, difficulty handling secretions. 07:55 Cardiovascular: Negative for chest pain, edema, palpitations. 07:55 Respiratory: Negative for cough, shortness of breath, wheezing. 07:55 Abdomen/GI: Positive for abdominal pain, Negative for nausea, vomiting, and diarrhea, constipation, black/tarry stool, rectal bleeding. 07:55 : Positive for vaginal bleeding, Negative for urinary symptoms. 07:55 Neuro: Positive for dizziness, Negative for altered mental status, syncope, weakness. 07:55 All other systems are negative. Exam: 08:30 Constitutional: The patient appears alert, awake, non-toxic, well developed, well cp nourished, obese, uncomfortable. 08:30 Head/Face: Normocephalic, atraumatic. cp 08:30 Eyes: Periorbital structures: appear normal, Conjunctiva: normal, no exudate, no injection, Sclera: no appreciated abnormality, Lids and lashes: appear normal, bilaterally. 08:30 ENT: External ear(s): are unremarkable, Nose: is normal, Mouth: Lips: moist, Oral mucosa: pink and intact, moist, Posterior pharynx: is normal, airway is patent, no erythema, no exudate. 08:30 Chest/axilla: Inspection: normal, Palpation: is normal, no crepitus, no tenderness. 08:30 Cardiovascular: Rate: normal, Rhythm: regular, Edema: is not appreciated, JVD: is not appreciated. 08:30 Respiratory: the patient does not display signs of respiratory distress, Respirations: normal, no use of accessory muscles, no retractions, no splinting, no tachypnea, labored breathing, is not present, Breath sounds: are clear throughout, no decreased breath sounds, no stridor, no wheezing. 08:30 Abdomen/GI: Inspection: abdomen appears normal, Bowel sounds: active, all quadrants, Palpation: soft, in all quadrants, severe abdominal tenderness, in the right lower quadrant and left lower quadrant, rebound tenderness, is not appreciated, voluntary guarding, is elicited in the right lower quadrant and left lower quadrant. 08:30 : Pelvic Exam: Speculum exam: moderate bleeding, blood clots in vaginal vault, os that is open, no tissue in cervix is seen, no tissue in vagina is seen. 08:30 Neuro: Orientation: to person, place \T\ time. Mentation: is normal, Motor: moves all fours, strength is normal. Vital Signs: 07:54 BP 101 / 51; Pulse 63; Resp 16; Temp 98.4; Pulse Ox 99% on R/A; Weight 136.08 kg; ls4 Height 5 ft. 3 in. (160.02 cm); Pain 10/10; 09:04 BP 100 / 53; Pulse 57; Resp 16; Pulse Ox 99% on R/A; Pain 7/10; ls4 10:00 BP 111 / 78; Pulse 63; Resp 16; Pulse Ox 98% on R/A; Pain 5/10; ls4 11:13 BP 116 / 77; Pulse 64; Resp 16; Pulse Ox 100% on R/A; Pain 5/10; ls4 11:50 BP 107 / 74; Pulse 66; Resp 16; Pulse Ox 100% on R/A; Pain 3/10; ls4 07:54 Body Mass Index 53.14 (136.08 kg, 160.02 cm) ls4 MDM: 07:50 Patient medically screened. cp 10:30 Physician consultation: spoke with Haley Fairbanks NP, who works with DR Donovan, will not cp take transfer of patient to [place] ED for evaluation and recommends outpatient f/u as scheduled for D\T\C. 10:41 Physician consultation: José Miguel Landeros MD was called at 10:35, was contacted at cp 10:35, regarding consult, patient's condition, and will see patient in ED, shortly. 10:45 Data reviewed: vital signs, nurses notes, lab test result(s), radiologic studies, cp ultrasound. 10:45 Response to treatment: the patient's symptoms have markedly improved after treatment. cp 01/13 07:53 Order name: Quantitative Hcg; Complete Time: 10:44 cp 01/13 07:53 Order name: Basic Metabolic Panel; Complete Time: 10:44 cp 01/13 07:53 Order name: CBC with Diff; Complete Time: 09:23 cp 01/13 09:21 Interpretation: Normal except: WBC 11.8; ROBE% 79.5; LYM% 14.9; NEUT A 9.4. cp 01/13 07:53 Order name: Type And Screen; Complete Time: 10:44 cp 01/13 08:56 Order name: Urine Dipstick--Ancillary (enter results); Complete Time: 09:23 bd 01/13 09:21 Interpretation: Normal except: UKET 2+; UBLD TRACE; UPROT 1+. cp 01/13 08:52 Order name: Transvaginal OB US; Complete Time: 10:44 cp 01/13 08:56 Order name: Urine --Ancillary (enter results); Complete Time: 09:23 bd 01/13 08:56 Order name: Urine Microscopic Only; Complete Time: 09:23 bd 01/13 09:51 Order name: Antibody Identification; Complete Time: 10:44 EDMS 01/13 07:53 Order name: Urine Test (obtain specimen); Complete Time: 10:16 cp 01/13 07:53 Order name: IV Saline Lock; Complete Time: 08:32 cp 01/13 07:53 Order name: Labs collected and sent; Complete Time: 10:16 cp 01/13 07:53 Order name: NPO; Complete Time: 08:32 cp 01/13 07:53 Order name: Urine Dipstick-Ancillary (obtain specimen); Complete Time: 08:32 cp 01/13 07:53 Order name: Cath; Complete Time: 08:32 cp 01/13 07:53 Order name: IV; Complete Time: 08:30 cp 01/13 08:11 Order name: Pelvic Exam Setup; Complete Time: 08:30 cp 01/13 08:50 Order name: Misc. Order: recollect BMP please; Complete Time: 09:04 ss 01/13 11:32 Order name: NPO; Complete Time: 11:45 EDMS Administered Medications: 08:20 Drug: Zofran 4 mg Route: IVP; Site: left antecubital; ls4 08:50 Follow up: Response: No adverse reaction; Marked relief of symptoms ls4 08:20 Drug: fentaNYL (PF) 25 mcg Route: IVP; Site: left antecubital; ls4 08:50 Follow up: Response: No adverse reaction; No change in condition; Pain is unchanged, ls4 physician notified 08:20 Drug: NS 0.9% 1000 ml Route: IV; Rate: 1 bolus; Site: left antecubital; ls4 09:30 Follow up: IV Status: Completed infusion; IV Intake: 1000ml ls4 09:02 Drug: fentaNYL (PF) 25 mcg Route: IVP; Site: left antecubital; ls4 09:55 Follow up: Response: No adverse reaction; Marked relief of symptoms ls4 09:39 Drug: NS 0.9% 1000 ml Route: IV; Rate: 1 bolus; Site: left antecubital; ls4 11:29 Drug: Ancef 1 grams Route: IVPB; Site: left antecubital; ls4 12:04 Follow up: IV Status: Infusion continued upon admission ls4 Disposition: 14:35 Co-signature as Attending Physician, Moshe Britton MD I agree with the assessment and kdr plan of care. Disposition: 01/13/19 11:00 Hospitalization ordered by José Miguel Landeros for Observation. Preliminary diagnosis is Incomplete spontaneous with other complications. - Bed requested for DAY SURGERY OTHER. - Status is Observation. ss - Condition is Stable. - Problem is an ongoing problem. - Symptoms have improved. UTI on Admission? No Signatures: Dispatcher [employer] EDDE Moshe Britton MD MD [facility] Eileen Camejo RN RN Yuri Krishnamurthy PA PA cp Stewart, Lisa, RN RN ls4 Corrections: (The following items were deleted from the chart) 08:42 07:56 ABO/RH TYPING+[id number].LAB.BRZ ordered. EDDE EDDE 11:20 11:18 Allergies: Latex, Natural Rubber; ls4 ls4 12:03 11:00 Hospitalization Ordered by José Miguel Landeros MD for Observation. Preliminary ss diagnosis is Incomplete spontaneous with other complications. Bed requested for DAY SURGERY OTHER. Status is Observation. Condition is Stable. Problem is an ongoing problem. Symptoms have improved. UTI on Admission? No. cp
[2019-01-13] MEDS ORDERED: ONDANSETRON 4 MG/2 ML VIAL IV PRN (11:26)
--- OUTSIDE RECORDS SUMMARY | 2019-01-13 11:35 | XMS REPORT ---
:1990 [facility] Address [address] [place] [address] Dr. Koo [address] [place] [id number] Care Team Providers Name Role Phone Unavailable Unavailable Unavailable Problems This patient has no known problems. Allergies, Adverse Reactions, Alerts This patient has no known allergies or adverse reactions. Medications This patient has no known medications.
[2019-01-13] MEDS ORDERED: OXYTOCIN 10 UNIT/ML ML IV ONE (11:42)
[2019-01-13] MEDS ORDERED: SILVER NITRATE 1 APPL TOP ONE (11:43)
[2019-01-13] MEDS ORDERED: METHYLERGONOVINE 0.2MG/ML AMP IM ONE (11:43)
[2019-01-13] MEDS ORDERED: NA CHLORIDE 0.9% 100 ML IV ONE (11:44)
[2019-01-13] MEDS ORDERED: CEFAZOLIN SODIUM 1 GM/VIAL ONE (11:44)
[2019-01-13] MEDS ORDERED: PROPOFOL 200 MG/20 ML VIAL IV ONE (11:51)
[2019-01-13] MEDS ORDERED: LIDOCAINE 2% MPF 5 ML VIAL ONE (11:51)
[2019-01-13] MEDS ORDERED: DOXYCYCLINE 200 MG in NA CHLORIDE 0.9% 250 ML IVPB ONE (12:00)
[2019-01-13] MEDS ORDERED: Ringers Lactate 1,000 ML IV SCH (12:00)
[2019-01-13] MEDS ORDERED: KETOROLAC 30 MG/ML INJ ONE (12:07)
[2019-01-13] MEDS ORDERED: DEXAMETHASONE 10 MG/ML VIAL ONE (12:07)
[2019-01-13] MEDS ORDERED: KETOROLAC 30 MG/ML INJ IV ONE (12:31)
--- NOTE | 2019-01-13 12:31 | P.BOP ---
Preoperative diagnosis: Inevitible Postoperative diagnosis: same Primary procedure: D&C Estimated blood loss: Less than 10ml Specimen: POC Anesthesia: General Complications: None Transferred to: Recovery Room Condition: Good
[2019-01-13 13:08] VITALS: O2SAT 100
[2019-01-13] MEDS: HYDROMORPHONE HCL 1 MG/ML INJ ONE ×2 (13:12→13:18)
[2019-01-13 14:03] VITALS: TEMP 97.7
--- NOTE | 2019-01-13 14:36 | OP ---
Surgeon: José Miguel Landeros MD Anesthesiologist: Dr. Patel Contreras. Preoperative Diagnosis: An inevitable . Procedure: Dilatation and curettage of the uterine endometrium. Postoperative Diagnosis: An inevitable . Description Of Procedure: After satisfactory level of general anesthesia was obtained, the patient w as prepped and draped in the usual fashion in high leg holders. A weighted speculum was placed at th e posterior vagina. Cervix was grasped with single-tooth tenaculum. It was dilated sufficiently to accept a 10 curved suction curette which was productive of moderate amount of tissue. Uterus was the n explored with uterine dressing forceps and then sharp curettage with Yunior curette with no further production of tissue. The patient was given 20 units of Pitocin in her IV fluids and a dose of Meth ergine IM intraoperatively and an infusion of 200 mg of doxycycline going. The patient was awakened, taken to recovery room in satisfactory condition. Estimated Total Blood Loss: Less than 10. JIMBO/RONI Voice ID: [id number] Report ID: [id number]
--- NOTE | 2019-01-13 14:36 | PREOPHP ---
Date of Admission: 01/13/2019 History Of Present Illness: Ms. Ordaz is a 28-year-old female 2, para 1-0-0-1, n ow early weighing between 10 and 12 weeks gestation who presented to our emergency room last week with vaginal bleeding, noted to have a nonviable , saw her physician in [place]. The following day nonviable was confirmed. She was counseled regarding her options and was co unseled that surgery D and C was indicated, but this was not scheduled till Saturday of this week. She had her preop yesterday, was cramping more, physician still delayed surgery until Saturday. She start ed cramping and bleeding worse this morning at 3 a.m., then came by ambulance to our emergency room. Past Medical History: Includes prior vaginal delivery approximately 5 years ago without complication s. She is on no medications on a regular basis on vitamins. Allergies: SHE HAS NO KNOWN ALLERGIES. Social History: She does not smoke. Family History: Noncontributory other than mother with hypertension and stroke. Otherwise noncontri butory. Review of Systems: She reports no recent cough, cold, fever, or chills. No recent nausea, vomiting. She has had a elian le bit of nausea with her discomfort. She denies any breast lumps or knots. She denies any bowel or bladder issues. Physical Examination: General: Reveals an obese female in mild discomfort. Neck: Supple without adenopathy or thyromegaly. Lungs: Clear. Cardiac: Regular rate and rhythm without murmurs. Breasts: Not examined. Abdomen: Obese without obvious organosplenomegaly. No evidence of rebound tenderness. Pelvic: Not performed at this time. Extremities: No cyanosis, clubbing, or edema. Ultrasound confirms nonviable with products of conception still in intrauterine with cervix beginning to dilate. CBC normal. She received a sh ot of RhoGAM last week when she presented bleeding. Impression: with nonviable , inevitable . Plan: The patient counseled again about the risks and benefits of surgery. She elected to proceed w ith D and C. JIMBO/RONI Voice ID: [id number]
--- NOTE | 2019-01-13 14:42 | DS ---
Final Hospital Discharge Diagnosis: Inevitable . Complications: None. Procedures: Dilatation and curettage of the uterine endometrium. Hospital Course: The patient is a 28-year-old female, 2, para 1-0-0-1, early pregn ant with confirmed nonviable , who presents with bleeding and cramping. She underwent D and C, productive of moderate amount of tissue. She was dismissed to be seen back in my office in [address] [place] [address] with prescription for misoprostol 100 mg 1 every 6 hours #4 tablets. To continue taking her prena lala vitamins and dismissed with usual post D and C activity restrictions. She had received a shot of RhoGAM through our emergency room 1 week previously when she presented with nonviable and Rh negative blood type. So she has not needed another dose. JIMBO/RONI Voice ID: [id number] Report ID: [id number]
[2019-01-13] MEDS ORDERED: HYDROCODONE/APAP 10/325 TAB ONE (15:58)
[2019-01-13 16:34] VITALS: BP 106/54
== END 2019-01-13 16:36 | disposition home or self-care (01) ==
LOC: ER 07:42 → OR 11:24
PROVIDERS: ATTEND Specialist
PROC: 10D17ZZ Extraction of Products of Conception, Retained, Via Natural or Artificial Opening (ICD-10-PCS; principal; 2019-01-13 13:15)
DX: O03.4 Incomplete spontaneous abortion without complication (principal); Z3A.11 11 weeks gestation of pregnancy
CPT/HCPCS: 36415; 76817; 80048; 81003; 81015; 81025; 84702; 85025; 86850; 86870; 86900; 86901; 88305; 96361; 96365; 96375; 99285; J0690; J1100; J1170; J2210; J2405; J2590; J2704; J3010; J7030

== ENCOUNTER 2019-04-07 23:41 | Emergency (ER) | payer BC ==
--- OUTSIDE RECORDS SUMMARY | 2019-04-07 23:43 | XMS REPORT ---
:1990 [facility] Address [address] [place] [address] Dr. Koo [address] [place] [id number] Care Team Providers Name Role Phone Unavailable Unavailable Unavailable Problems This patient has no known problems. Allergies, Adverse Reactions, Alerts This patient has no known allergies or adverse reactions. Medications This patient has no known medications.
[2019-04-08] MEDS ORDERED: HYDROCODONE/APAP 5/325 MG TAB ONE (00:38)
[2019-04-08] MEDS ORDERED: CYCLOBENZAPRINE 10 MG TAB ONE (00:38)
[2019-04-08] MEDS ORDERED: IBUPROFEN 200 MG TAB PO ONE (00:39)
--- NOTE | 2019-04-08 00:49 | ER ---
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 Transition of care: patient was not received from another setting of care. Onset of symptoms was April 08, 2019. Risk Assessment: Do you want to hurt yourself or someone else? Patient reports no desire to harm self or others. Initial Sepsis Screen: Does the patient meet any 2 criteria? No. Patient's initial sepsis screen is negative. Care prior to arrival: None. 00:05 Method Of Arrival: Ambulatory bb 00:05 Acuity: ALPESH 4 bb 00:42 Initial Sepsis Screen: Does the patient have a suspected source of infection? No. bb Patient's initial sepsis screen is negative. 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 - Social history:: Smoking status: Patient/guardian denies using tobacco. - Ebola Screening: : No symptoms or risks identified at this time. Screenin:40 Abuse screen: Denies threats or abuse. Nutritional screening: No deficits noted. bb Tuberculosis screening: No symptoms or risk factors identified. Fall Risk None identified. Assessment: 00:40 General: Appears in no apparent distress. uncomfortable, Behavior is calm, cooperative. bb Pain: Complains of pain in left leg Pain currently is 7 out of 10 on a pain scale. Neuro: Level of Consciousness is awake, alert, obeys commands, Oriented to person, place, time, situation. Cardiovascular: No deficits noted. Respiratory: Respiratory effort is even, Respiratory pattern is regular, symmetrical. GI: No signs and/or symptoms were reported involving the gastrointestinal system. Derm: Skin is pink, warm \T\ dry. Musculoskeletal: Circulation, motion, and sensation intact. Reports pain in left leg. 00:50 Reassessment: Patient and/or family updated on plan of care and expected duration. Pain bb level reassessed. Patient is alert, oriented x 3, equal unlabored respirations, skin warm/dry/pink. pt verbalized understanding of and agrees to plan of care discharge instructions given pt ambulated with steady gait to exit accompanied by spouse. Vital Signs: 00:07 BP 113 / 73; Pulse 88; Resp 16 S; Temp 98.5(O); Pulse Ox 100% on R/A; Weight 120.2 kg bb (R); Height 5 ft. 9 in. (175.26 cm) (R); Pain 610; 00:07 Body Mass Index 39.13 (120.20 kg, 175.26 cm) bb ED Course: 04/07 23:44 Patient arrived in ED. cf2 04/08 00:07 Triage completed. bb 00:07 Arm band placed on Patient placed in an exam room. Family accompanied patient. bb 00:15 Mohan Tejada, DEONDRE is PHCP. pm1 00:15 Jatin Mckeon MD is Attending Physician. pm1 00:40 Patient has correct armband on for positive identification. Bed in low position. Call bb light in reach. Adult w/ patient. 00:40 No provider procedures requiring assistance completed. Patient did not have IV access bb during this emergency room visit. Administered Medications: 00:40 Drug: [place] 5 mg-325 mg 1 tabs {Note: RASS 0.} Route: PO; bb 00:52 Follow up: Response: No adverse reaction; RASS: Alert and Calm (0) bb 00:40 Drug: Flexeril 10 mg Route: PO; bb 00:52 Follow up: Response: No adverse reaction bb 00:40 Drug: Ibuprofen 600 mg Route: PO; bb 00:52 Follow up: Response: No adverse reaction bb Outcome: 00:43 Discharge ordered by . pm1 00:52 Discharged to home ambulatory, with family. bb 00:52 Condition: stable 00:52 Discharge instructions given to patient, Instructed on discharge instructions, follow up and referral plans. medication usage, Demonstrated understanding of instructions, follow-up care, medications, Prescriptions given X 3. 00:52 Patient left the ED. bb Signatures: Aileen Roberts RN RN bb Mohan Tejada NP SHOP DIRECTOR pm1 Karime Aguero cf2
--- NOTE | 2019-04-08 00:50 | EDPHYS ---
Physician Documentation [facility] Name: Arline Ordaz Age: 29 yrs Sex: Female : 1990 Arrival Date: 04/07/2019 Time: 23:44 Bed 25 Private MD: ED Physician Jatin Mckeon HPI: 04/08 00:29 This 29 yrs old Female presents to ER via Ambulatory with complaints of Leg pm1 Pain. 00:29 The patient presents with pain, that is acute. The complaints affect the lateral aspect pm1 of left thigh and medial aspect of left thigh. Context: The problem was sustained at work, resulted from an unknown cause, the patient can fully bear weight, the patient is able to ambulate. Onset: The symptoms/episode began/occurred yesterday. Modifying factors: The symptoms are alleviated by remaining still, the symptoms are aggravated by movement. Associated signs and symptoms: Pertinent negatives calf tenderness, numbness, tingling. Treatment prior to arrival includes: no previous treatment. Severity of symptoms: in the emergency department the symptoms are actually worse. The patient has not experienced similar symptoms in the past. 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 - Social history:: Smoking status: Patient/guardian denies using tobacco. - Ebola Screening: : No symptoms or risks identified at this time. ROS: 00:29 Constitutional: Negative for fever, chills, and weight loss, Eyes: Negative for injury, pm1 pain, redness, and discharge, ENT: Negative for injury, pain, and discharge, Neck: Negative for injury, pain, and swelling, Cardiovascular: Negative for chest pain, palpitations, and edema, Respiratory: Negative for shortness of breath, cough, wheezing, and pleuritic chest pain, Abdomen/GI: Negative for abdominal pain, nausea, vomiting, diarrhea, and constipation, Back: Negative for injury and pain. 00:29 Skin: Negative for injury, rash, and discoloration, Neuro: Negative for headache, weakness, numbness, tingling, and seizure. 00:29 MS/extremity: Positive for pain, of the medial aspect of left thigh and lateral aspect of left thigh, Negative for decreased range of motion, deformity. Exam: 00:29 Constitutional: This is a well developed, well nourished patient who is awake, alert, pm1 and in no acute distress. Head/Face: Normocephalic, atraumatic. Neck: Trachea midline, no thyromegaly or masses palpated, and no cervical lymphadenopathy. Supple, full range of motion without nuchal rigidity, or vertebral point tenderness. No Meningismus. Chest/axilla: Normal chest wall appearance and motion. Nontender with no deformity. No lesions are appreciated. Cardiovascular: Regular rate and rhythm with a normal S1 and S2. No gallops, murmurs, or rubs. Normal PMI, no JVD. No pulse deficits. Respiratory: Lungs have equal breath sounds bilaterally, clear to auscultation and percussion. No rales, rhonchi or wheezes noted. No increased work of breathing, no retractions or nasal flaring. Abdomen/GI: Soft, non-tender, with normal bowel sounds. No distension or tympany. No guarding or rebound. No evidence of tenderness throughout. Back: No spinal tenderness. No costovertebral tenderness. Full range of motion. Skin: Warm, dry with normal turgor. Normal color with no rashes, no lesions, and no evidence of cellulitis. 00:29 Musculoskeletal/extremity: Extremities: grossly normal except: noted in the medial aspect of left thigh and lateral aspect of left thigh and left hip: pain, tenderness. Vital Signs: 00:07 BP 113 / 73; Pulse 88; Resp 16 S; Temp 98.5(O); Pulse Ox 100% on R/A; Weight 120.2 kg bb (R); Height 5 ft. 9 in. (175.26 cm) (R); Pain 6/10; 00:07 Body Mass Index 39.13 (120.20 kg, 175.26 cm) bb MDM: 00:15 Patient medically screened. pm1 00:41 Data reviewed: vital signs. Data interpreted: Pulse oximetry: on room air is 100 %. pm1 Interpretation: normal. Counseling: I had a detailed discussion with the patient and/or guardian regarding: the historical points, exam findings, and any diagnostic results supporting the discharge/admit diagnosis, the need for outpatient follow up, to return to the emergency department if symptoms worsen or persist or if there are any questions or concerns that arise at home. Administered Medications: 00:40 Drug: [place] 5 mg-325 mg 1 tabs {Note: RASS 0.} Route: PO; bb 00:52 Follow up: Response: No adverse reaction; RASS: Alert and Calm (0) bb 00:40 Drug: Flexeril 10 mg Route: PO; bb 00:52 Follow up: Response: No adverse reaction bb 00:40 Drug: Ibuprofen 600 mg Route: PO; bb 00:52 Follow up: Response: No adverse reaction bb Disposition: 05:47 Co-signature as Attending Physician, Jatin Mckeon MD I agree with the assessment and tw4 plan of care. Disposition: 04/08/19 00:43 Discharged to Home. Impression: Sciatica, left side, Strain of unspecified muscles, fascia and tendons at thigh level, left thigh. - Condition is Stable. - Discharge Instructions: Muscle Strain, Sciatica. - Prescriptions for Tylenol- Codeine #3 300-30 mg Oral Tablet - take 2 tablets by ORAL route every 6 hours As needed; 20 tablet. Cyclobenzaprine 10 mg Oral Tablet - take 1 tablet by ORAL route every 8 hours As needed; 30 tablet. Diclofenac Sodium 75 mg Oral Tablet Sustained Release - take 1 tablet by ORAL route 2 times per day; 30 tablet. - Medication Reconciliation Form, Thank You Letter, Antibiotic Education, Prescription Opioid Use form. - Follow up: Emergency Department; When: As needed; Reason: Worsening of condition. Follow up: Private Physician; When: 2 - 3 days; Reason: Recheck today's complaints, Continuance of care, Re-evaluation by your physician. - Problem is new. - Symptoms have improved. Signatures: Aileen Roberts RN RN bb Mohan Tejada, ELECTRO MECHANICAL TECHNICIAN ELECTRO MECHANICAL TECHNICIAN pm1 Jatin Mckeon MD MD tw4 Corrections: (The following items were deleted from the chart) 00:52 00:43 04/08/2019 00:43 Discharged to Home. Impression: Sciatica, left side; Strain of bb unspecified muscles, fascia and tendons at thigh level, left thigh. Condition is Stable. Forms are Medication Reconciliation Form, Thank You Letter, Antibiotic Education, Prescription Opioid Use. Follow up: Emergency Department; When: As needed; Reason: Worsening of condition. Follow up: Private Physician; When: 2 - 3 days; Reason: Recheck today's complaints, Continuance of care, Re-evaluation by your physician. Problem is new. Symptoms have improved. pm1
[2019-04-08 01:09] VITALS: BP 113/73; TEMP 98.5; O2SAT 100
== END 2019-04-08 00:52 | disposition home or self-care (01) ==
LOC: ER 23:41
DX: S76.912A Strain of unspecified muscles, fascia and tendons at thigh level, left thigh, initial encounter (principal); Y93.E5 Activity, floor mopping and cleaning; Y92.89 Other specified places as the place of occurrence of the external cause; Y99.8 Other external cause status
CPT/HCPCS: 99283

== ENCOUNTER 2019-06-11 08:08 | Emergency (ER) | payer BC, OTHER ==
--- OUTSIDE RECORDS SUMMARY | 2019-06-11 08:10 | XMS REPORT ---
:1990 [facility] Address [address] [place] [address] Dr. Koo [address] [place] [id number] Care Team Providers Name Role Phone Unavailable Unavailable Unavailable Problems This patient has no known problems. Allergies, Adverse Reactions, Alerts This patient has no known allergies or adverse reactions. Medications This patient has no known medications.
[2019-06-11 10:22] LABS: Urine Blood NEGATIVE (NEG); Urine Glucose NEGATIVE (NEG); Urine Protein NEGATIVE (NEG); Urine Specific Gravity >1.030 (1.005-1.030)
[2019-06-11 10:34] LABS: Urine Bacteria 20-50 /HPF (<20); Urine Culture Reflex Order REFLEXED; Urine Mucus HEAVY /HPF (NONE SEEN); Urine RBC <5 /HPF (NONE SEEN)
--- NOTE | 2019-06-11 10:39 | EDPHYS ---
Physician Documentation [facility] Name: Arline Ordaz Age: 29 yrs Sex: Female : 1990 Arrival Date: 06/11/2019 Time: 08:11 Bed 13 Private MD: Ramesh Nielsen H ED Physician Moshe Britton HPI: 06/11 10:41 This 29 yrs old Female presents to ER via Ambulatory with complaints of Flu snw Symptoms, . 10:41 The patient or guardian reports flu symptoms, low-grade fever, myalgias, no appetite, snw upper respiratory congestion. Onset: The symptoms/episode began/occurred 1.5 week(s) ago, and became persistent. Modifying factors: The symptoms are alleviated by nothing. Severity of symptoms: At their worst the symptoms were moderate in the emergency department the symptoms are unchanged. It is unknown whether or not the patient has had similar symptoms in the past. 13 wk IUP, seeing Dr. Kingsley. PCP is Dr. Nielsen. 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 - Social history:: Smoking status: Patient/guardian denies using tobacco. - Ebola Screening: : Patient denies exposure to infectious person Patient denies travel to an Ebola-affected area in the 21 days before illness onset. ROS: 10:31 Constitutional: Negative for fever, chills, and weight loss, Eyes: Negative for injury, snw pain, redness, and discharge, Neck: Negative for injury, pain, and swelling, Cardiovascular: Negative for chest pain, palpitations, and edema, Respiratory: Positive for shortness of breath, cough, negative for wheezing and pleuritic chest pain, Abdomen/GI: Negative for abdominal pain, nausea, vomiting, diarrhea, and constipation, Back: Negative for injury and pain, : Negative for injury, bleeding, discharge, and swelling, MS/Extremity: Negative for injury and deformity, Skin: Negative for injury, rash, and discoloration, Neuro: Negative for headache, weakness, numbness, tingling, and seizure, Psych: Negative for depression, anxiety, suicide ideation, homicidal ideation, and hallucinations. 10:31 ENT: Positive for sinus congestion. Exam: 09:42 Constitutional: This is a well developed, well nourished patient who is awake, alert, snw and in no acute distress. Head/Face: Normocephalic, atraumatic. Eyes: Pupils equal round and reactive to light, extra-ocular motions intact. Lids and lashes normal. Conjunctiva and sclera are non-icteric and not injected. Cornea within normal limits. Periorbital areas with no swelling, redness, or edema. 09:42 Neck: Trachea midline, no thyromegaly or masses palpated, and no cervical lymphadenopathy. Supple, full range of motion without nuchal rigidity, or vertebral point tenderness. No Meningismus. Chest/axilla: Normal chest wall appearance and motion. Nontender with no deformity. No lesions are appreciated. Cardiovascular: Regular rate and rhythm with a normal S1 and S2. No gallops, murmurs, or rubs. Normal PMI, no JVD. No pulse deficits. Respiratory: Lungs have equal breath sounds bilaterally, clear to auscultation and percussion. No rales, rhonchi or wheezes noted. No increased work of breathing, no retractions or nasal flaring. Abdomen/GI: Soft, non-tender, with normal bowel sounds. No distension or tympany. No guarding or rebound. No evidence of tenderness throughout. Back: No spinal tenderness. No costovertebral tenderness. Full range of motion. Skin: Warm, dry with normal turgor. Normal color with no rashes, no lesions, and no evidence of cellulitis. MS/ Extremity: Pulses equal, no cyanosis. Neurovascular intact. Full, normal range of motion. Neuro: Awake and alert, GCS 15, oriented to person, place, time, and situation. Cranial nerves II-XII grossly intact. Motor strength 5/5 in all extremities. Sensory grossly intact. Cerebellar exam normal. Normal gait. Psych: Awake, alert, with orientation to person, place and time. Behavior, mood, and affect are within normal limits. 09:42 ENT: External ear(s): are unremarkable, Ear canal(s): are normal, TM's: are normal, Nose: Nasal mucosa: edematous, Mouth: is normal, Posterior pharynx: is normal, Voice: is normal. Vital Signs: 08:44 BP 112 / 66; Pulse 83; Resp 17; Temp 97.0(TE); Pulse Ox 98% on R/A; Weight 117.93 kg; ss Height 5 ft. 9 in. (175.26 cm); Pain 3/10; 10:50 BP 120 / 70; Pulse 81; Resp 17; Pulse Ox 99% on R/A; sg 08:44 Body Mass Index 38.39 (117.93 kg, 175.26 cm) ss MDM: 09:15 Patient medically screened. snw 10:40 Data reviewed: vital signs, nurses notes. Data interpreted: Pulse oximetry: on room air snw is 98 %. Interpretation: normal. Counseling: I had a detailed discussion with the patient and/or guardian regarding: the historical points, exam findings, and any diagnostic results supporting the discharge/admit diagnosis, lab results, the need for outpatient follow up, to return to the emergency department if symptoms worsen or persist or if there are any questions or concerns that arise at home. Special discussion: Based on the history and exam findings, there is no indication for further emergent testing or inpatient evaluation. I discussed with the patient/guardian the need to see the OB Gyne specialist for further evaluation of the symptoms. I discussed with the patient/guardian the need to see the primary care provider for further evaluation of the symptoms. 06/11 09:15 Order name: Flu; Complete Time: 10:00 snw 06/11 09:15 Order name: Strep; Complete Time: 10:00 snw 06/11 09:15 Order name: Urine Culture snw 06/11 09:15 Order name: Urine Microscopic Only; Complete Time: 10:37 snw 06/11 09:51 Order name: Throat Culture EDVA 06/11 10:19 Order name: Urine Dipstick--Ancillary (enter results) em1 06/11 09:15 Order name: Urine Dipstick-Ancillary (obtain specimen); Complete Time: 10:17 snw 06/11 10:19 Order name: Urine --Ancillary (enter results) em1 06/11 10:23 Order name: Urine --Ancillary EDVA 06/11 10:23 Order name: Urine Dipstick-Ancillary EDMS Administered Medications: 10:42 Drug: Augmentin 875 mg Route: PO; sg 11:30 Follow up: Response: No adverse reaction sg Disposition: 06/12 07:03 Co-signature as Attending Physician, Moshe Britton MD I agree with the assessment and kdr plan of care. Disposition: 06/11/19 10:38 Discharged to Home. Impression: state, incidental, Urinary tract infection, site not specified, Acute sinusitis. - Condition is Stable. - Discharge Instructions: Sinusitis, Adult, and Urinary Tract Infection, Rehydration, Adult. - Prescriptions for Augmentin 875- 125 mg Oral Tablet - take 1 tablet by ORAL route every 12 hours for 10 days; 20 tablet. Flonase Allergy Relief 50 mcg/actuation Nasal spray,suspension - inhale 1 spray by INTRANASAL route once daily; 1 Cartridge. - Work release form, Medication Reconciliation Form, Thank You Letter, Antibiotic Education, Prescription Opioid Use form. - Follow up: Ramesh Nielsen DO; When: 2 - 3 days; Reason: Recheck today's complaints, Continuance of care, Re-evaluation by your physician. Follow up: Emergency Department; When: As needed; Reason: Worsening of condition. Signatures: Dispatcher [employer] EDMS Ronaldo Mayer RN RN Moshe Britton MD MD [facility] Benita Gil, SECTION LABORER-C SECTION LABORER-Csnw Eileen Camejo RN RN ss Corrections: (The following items were deleted from the chart) 06/11 10:58 10:38 06/11/2019 10:38 Discharged to Home. Impression: state, incidental; ss Urinary tract infection, site not specified; Acute sinusitis. Condition is Stable. Forms are Medication Reconciliation Form, Thank You Letter, Antibiotic Education, Prescription Opioid Use. Follow up: Ramesh Nielsen; When: 2 - 3 days; Reason: Recheck today's complaints, Continuance of care, Re-evaluation by your physician. Follow up: Emergency Department; When: As needed; Reason: Worsening of condition. snw
--- NOTE | 2019-06-11 10:39 | ER ---
Nurse's Notes [facility] Name: Arline Ordaz Age: 29 yrs Sex: Female : 1990 Arrival Date: 06/11/2019 Time: 08:11 Bed 13 Private MD: Ramesh Nielsen H Diagnosis: state, incidental;Urinary tract infection, site not specified;Acute sinusitis Presentation: 06/11 08:42 Presenting complaint: Patient states: painful cough, nasal congestion, headache and ss decreased appetite x 1 week. Fever (TMAX 102.0) x the past two nights. Pt reports she is 13 weeks . Transition of care: patient was not received from another setting of care. Onset of symptoms was June 04, 2019. Risk Assessment: Do you want to hurt yourself or someone else? Patient reports no desire to harm self or others. Initial Sepsis Screen: Does the patient meet any 2 criteria? No. Patient's initial sepsis screen is negative. Does the patient have a suspected source of infection? No. Patient's initial sepsis screen is negative. Care prior to arrival: None. 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 - Social history:: Smoking status: Patient/guardian denies using tobacco. - Ebola Screening: : Patient denies exposure to infectious person Patient denies travel to an Ebola-affected area in the 21 days before illness onset. Screenin:50 Abuse screen: Denies threats or abuse. Denies injuries from another. Nutritional sg screening: No deficits noted. Tuberculosis screening: No symptoms or risk factors identified. Never had TB. Fall Risk None identified. Assessment: 08:50 General: Appears in no apparent distress. well groomed, well developed, well nourished, sg Behavior is calm, cooperative, appropriate for age. Pain: Complains of pain in body aches Quality of pain is described as aching. Neuro: Level of Consciousness is awake, alert, obeys commands, Oriented to person, place, time, Speech is normal, Facial symmetry appears normal. Cardiovascular: Heart tones S1 S2 present Chest pain is denied. Respiratory: Airway is patent Respiratory effort is even, unlabored, Respiratory pattern is regular, symmetrical. GI: No signs and/or symptoms were reported involving the gastrointestinal system. : No signs and/or symptoms were reported regarding the genitourinary system. EENT: No signs and/or symptoms were reported regarding the EENT system. Derm: Skin is pink, warm \T\ dry. Musculoskeletal: Circulation, motion, and sensation intact. Range of motion: intact in all extremities. Vital Signs: 08:44 BP 112 / 66; Pulse 83; Resp 17; Temp 97.0(TE); Pulse Ox 98% on R/A; Weight 117.93 kg; ss Height 5 ft. 9 in. (175.26 cm); Pain 3/10; 10:50 BP 120 / 70; Pulse 81; Resp 17; Pulse Ox 99% on R/A; sg 08:44 Body Mass Index 38.39 (117.93 kg, 175.26 cm) ED Course: 08:11 Patient arrived in ED. mr 08:12 Ramesh Nielsen DO is Private Physician. mr 08:24 Benita Gil FNP-C [facility]. snw 08:24 Moshe Britton MD is Attending Physician. snw 08:44 Triage completed. ss 08:44 Arm band placed on right wrist. ss 08:50 No provider procedures requiring assistance completed. sg 08:55 Patient has correct armband on for positive identification. Bed in low position. Call sg light in reach. Side rails up X2. nurse monitoring on. Pulse ox on. NIBP on. 09:26 Ronaldo Mayer, JOSE is Primary Nurse. sg 10:37 Ramesh Nielsen DO is Referral Physician. snw 10:50 Patient did not have IV access during this emergency room visit. sg Administered Medications: 10:42 Drug: Augmentin 875 mg Route: PO; sg 11:30 Follow up: Response: No adverse reaction sg Outcome: 10:38 Discharge ordered by . snw 10:50 Discharged to home ambulatory, with family. sg 10:50 Condition: good 10:50 Discharge instructions given to patient, Instructed on discharge instructions, follow up and referral plans. medication usage, safety practices, Demonstrated understanding of instructions, follow-up care, medications, Prescriptions given X 1. 10:58 Patient left the ED. ss Signatures: Ronaldo Mayer, RN RN Benita Mckeon, SECONDARY TEACHER-C SECONDARY TEACHER-Csnw RickAntonia mr Eileen Camejo RN RN ss
[2019-06-11] MEDS ORDERED: AMOX/K CLAV 875 MG TAB ONE (10:43)
[2019-06-11 14:32] VITALS: BP 112/66; TEMP 97; O2SAT 98
== END 2019-06-11 10:58 | disposition home or self-care (01) ==
LOC: ER 08:08
DX: O23.41 Unspecified infection of urinary tract in pregnancy, first trimester (principal); J01.90 Acute sinusitis, unspecified; Z3A.13 13 weeks gestation of pregnancy
CPT/HCPCS: 81003; 81015; 81025; 87070; 87081; 87086; 87088; 87804; 99284

== ENCOUNTER 2020-01-14 19:48 | Emergency (ER) | payer BC, OTHER ==
--- OUTSIDE RECORDS SUMMARY | 2020-01-14 19:50 | XMS REPORT | Continuity of Care Document ---
:1990 Author Organization [facility] t Address [address] [place] [address] Dr. [address] [place] [id number] Care Team Providers Name Role Phone Unavailable Unavailable Unavailable Problems This patient has no known problems. Allergies, Adverse Reactions, Alerts This patient has no known allergies or adverse reactions. Medications This patient has no known medications. Procedures This patient has no known procedures. Results This patient has no known results.
[2020-01-14 22:03] LABS: Absolute Lymphocytes (CBC) 3.3 K/uL (0.7-4.9); Basophils % 0.4 % (0-1.3); Lymphocytes % 36.4 % (15.3-44.8); MPV 9.4 fL (7.6-11.3); RBC Red Blood Cell Count 5.17 M/uL (3.86-4.86)
[2020-01-14 22:19] LABS: Magnesium 2.1 mg/dL (1.8-2.4); Potassium 3.6 mmol/L (3.5-5.1)
--- NOTE | 2020-01-15 00:44 | ER ---
Nurse's Notes [facility] Name: Arline Ordaz Age: 29 yrs Sex: Female : 1990 Arrival Date: 01/14/2020 Time: 19:53 Bed 14 Private MD: Ramesh Nielsen H Diagnosis: Dysphagia Presentation: 01/13 19:56 Chief complaint: Patient states: "I feel like I can't swallow. Like I have a piece of jd3 food stuck, but when it started I was not even eating or anything. I can drink water, but I can't eat at all. I can breath just fine, but i choke if i try eating anything.". Coronavirus screen: Proceed with normal triage. Ebola Screen: Patient negative for fever greater than or equal to 101.5 degrees Fahrenheit, and additional compatible Ebola Virus Disease symptoms. Initial Sepsis Screen: Does the patient meet any 2 criteria? No. Patient's initial sepsis screen is negative. Does the patient have a suspected source of infection? No. Patient's initial sepsis screen is negative. Risk Assessment: Do you want to hurt yourself or someone else? Patient reports no desire to harm self or others. Onset of symptoms was January 14, 2020. 19:56 Method Of Arrival: Ambulatory j 19:56 Acuity: ALPESH 3 jd3 Triage Assessment: 22:21 General: Appears in no apparent distress. comfortable, obese, Behavior is calm, ls4 cooperative. 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 - Social history:: Smoking status: Patient denies any tobacco usage or history of. Screenin:08 Abuse screen: Denies threats or abuse. Denies injuries from another. Nutritional ls4 screening: No deficits noted. Tuberculosis screening: No symptoms or risk factors identified. Fall Risk None identified. Assessment: 20:36 General: Appears in no apparent distress. comfortable. Pain: Denies pain. Neuro: Level ls4 of Consciousness is awake, alert, obeys commands, Oriented to person, place, time, situation. Respiratory: Airway is patent Trachea midline Respiratory effort is even, unlabored, Respiratory pattern is regular, Breath sounds are clear bilaterally. EENT: Oral mucosa is moist. Throat is clear Reports difficulty swallowing pt can swallow water with no difficulties . 22:02 Reassessment: Patient appears in no apparent distress at this time. Patient and/or ls4 family updated on plan of care and expected duration. Pain level reassessed. Patient is alert, oriented x 3, equal unlabored respirations, skin warm/dry/pink. 23:26 Reassessment: Patient appears in no apparent distress at this time. Patient and/or ls4 family updated on plan of care and expected duration. Pain level reassessed. Patient is alert, oriented x 3, equal unlabored respirations, skin warm/dry/pink. Vital Signs: 19:59 BP 111 / 76; Pulse 80; Resp 17 S; Temp 97.6(TE); Pulse Ox 98% on R/A; Weight 108.41 kg jd3 (R); Height 5 ft. 9 in. (175.26 cm) (R); Pain 2/10; 20:30 BP 118 / 74; Pulse 81; Resp 18; Pulse Ox 99% on R/A; Pain 0/10; ls4 21:30 BP 112 / 70; Pulse 78; Resp 14; Pulse Ox 99% on R/A; Pain 0/10; ls4 22:20 BP 120 / 78; Pulse 79; Resp 18; Pulse Ox 99% on R/A; Pain 0/10; ls4 01/14 01:00 BP 123 / 78; Pulse 72; Resp 16; Pulse Ox 99% on R/A; Pain 0/10; ls4 01/13 19:59 Body Mass Index 35.29 (108.41 kg, 175.26 cm) jd3 ED Course: 01/13 19:53 Patient arrived in ED. es 19:53 Ramesh Nielsen DO is Private Physician. es 19:58 Triage completed. jd3 20:00 Arm band placed on. jd3 20:49 [facility] jr8 20:49 Jatin Mckeon MD is Attending Physician. jr8 21:07 Perri Giron, RN is Primary Nurse. ls4 21:08 No apparent distress. ls4 21:08 Patient has correct armband on for positive identification. Bed in low position. Call ls4 light in reach. Side rails up X 1. Pulse ox on. NIBP on. Verbal reassurance given. 21:08 No provider procedures requiring assistance completed. ls4 21:15 Inserted saline lock: 18 gauge in right antecubital area, using aseptic technique. ls4 Blood collected. 21:15 Initial lab(s) drawn, by ny, sent to lab. ls4 22:17 CT Soft Tissue Neck W/contr In Process Unspecified. EDMS 23:25 Throat Culture Sent. ls4 06 00:43 Abby Freed MD is Referral Physician. jr8 01:01 IV discontinued, intact, bleeding controlled, No redness/swelling at site. Pressure ls4 dressing applied. Administered Medications: No medications were administered Outcome: 00:43 Discharge ordered by . jr8 01:01 Discharged to home ambulatory, with family. ls4 01:01 Condition: good 01:01 Discharge instructions given to patient, family, Instructed on discharge instructions, follow up and referral plans. medication usage, Demonstrated understanding of instructions, follow-up care, medications. 01:01 Patient left the ED. ls4 Signatures: Dispatcher [employer] EDMS Dilcia Rodriguez Josh, PA PA jr8 Dami Gonzalez RN RN jPerri Amaral, RN RN ls4 Corrections: (The following items were deleted from the chart) 01/13 20:02 19:59 Pulse 80bpm; Resp 17bpm; Spontaneous; Pulse Ox 98% RA; Temp 97.6F Temporal; jd3 108.41 kg Reported; Height 5 ft. 9 in. Reported; BMI: 35.2; Pain 2/10; jd3 22:06 21:08 Patient did not have IV access during this emergency room visit. ls4 ls4
--- NOTE | 2020-01-15 00:44 | EDPHYS ---
Physician Documentation [facility] Name: Arline Ordaz Age: 29 yrs Sex: Female : 1990 Arrival Date: 01/14/2020 Time: 19:53 Bed 14 Private MD: Ramesh Nielsen H ED Physician Jatin Mckeon HPI: 01/13 21:39 This 29 yrs old Female presents to ER via Ambulatory with complaints of jr8 Difficulty Swallowing, and eating. 21:39 Onset: The symptoms/episode began/occurred gradually, 2 day(s) ago. Severity of jr8 symptoms: At their worst the symptoms were mild, in the emergency department the symptoms are unchanged. Modifying factors: The symptoms are alleviated by nothing, the symptoms are aggravated by foods, Patient's oral intake status: limited food intake. Associated signs and symptoms: The patient has no apparent associated signs or symptoms. The patient has not experienced similar symptoms in the past. The patient has not recently seen a physician. Patient stated that she had finished Abx about a week ago for sinus infection. Two days ago started having hard time passing solids but is ok with fluids. Stated that she feels that the food is getting stuck. Has been having phlegm. Denies fever or neck pain. Denies having this before . 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 - Social history:: Smoking status: Patient denies any tobacco usage or history of. ROS: 21:39 Eyes: Negative for injury, pain, redness, and discharge, ENT: Negative for injury, jr8 pain, and discharge. Positive for dysphagia Neck: Negative for injury, pain, and swelling, Respiratory: Negative for shortness of breath, cough, wheezing, and pleuritic chest pain, Abdomen/GI: Negative for abdominal pain, nausea, vomiting, diarrhea, and constipation, Back: Negative for injury and pain, MS/Extremity: Negative for injury and deformity, Skin: Negative for injury, rash, and discoloration, Neuro: Negative for headache, weakness, numbness, tingling, and seizure. Exam: 21:39 Eyes: Pupils equal round and reactive to light, extra-ocular motions intact. Lids and jr8 lashes normal. Conjunctiva and sclera are non-icteric and not injected. Cornea within normal limits. Periorbital areas with no swelling, redness, or edema. ENT: Nares patent. No nasal discharge, no septal abnormalities noted. Tympanic membranes are normal and external auditory canals are clear. Oropharynx with no redness, swelling, or masses, exudates, or evidence of obstruction, uvula midline. Mucous membranes moist. Neck: Trachea midline, no thyromegaly or masses palpated, and no cervical lymphadenopathy. Supple, full range of motion without nuchal rigidity, or vertebral point tenderness. No Meningismus. Cardiovascular: Regular rate and rhythm with a normal S1 and S2. No gallops, murmurs, or rubs. Normal PMI, no JVD. No pulse deficits. Respiratory: Lungs have equal breath sounds bilaterally, clear to auscultation and percussion. No rales, rhonchi or wheezes noted. No increased work of breathing, no retractions or nasal flaring. Abdomen/GI: Soft, non-tender, with normal bowel sounds. No distension or tympany. No guarding or rebound. No evidence of tenderness throughout. Back: No spinal tenderness. No costovertebral tenderness. Full range of motion. Skin: Warm, dry with normal turgor. Normal color with no rashes, no lesions, and no evidence of cellulitis. MS/ Extremity: Pulses equal, no cyanosis. Neurovascular intact. Full, normal range of motion. Neuro: Awake and alert, GCS 15, oriented to person, place, time, and situation. Cranial nerves II-XII grossly intact. Motor strength 5/5 in all extremities. Sensory grossly intact. Cerebellar exam normal. Normal gait. Vital Signs: 19:59 BP 111 / 76; Pulse 80; Resp 17 S; Temp 97.6(TE); Pulse Ox 98% on R/A; Weight 108.41 kg jd3 (R); Height 5 ft. 9 in. (175.26 cm) (R); Pain 2/10; 20:30 BP 118 / 74; Pulse 81; Resp 18; Pulse Ox 99% on R/A; Pain 0/10; ls4 21:30 BP 112 / 70; Pulse 78; Resp 14; Pulse Ox 99% on R/A; Pain 0/10; ls4 22:20 BP 120 / 78; Pulse 79; Resp 18; Pulse Ox 99% on R/A; Pain 0/10; ls4 01/14 01:00 BP 123 / 78; Pulse 72; Resp 16; Pulse Ox 99% on R/A; Pain 0/10; ls4 01/13 19:59 Body Mass Index 35.29 (108.41 kg, 175.26 cm) jd3 MDM: 01/13 20:49 Patient medically screened. jr8 01/14 00:33 Data reviewed: vital signs, nurses notes, lab test result(s), radiologic studies, CT jr8 scan. Data interpreted: Pulse oximetry: on room air is 99 %. Interpretation: normal. 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 ED course: No lab or imaging abnormality noted. Patient able to tolerate fluids. Will send home to f/u with GI. If worse to come back. 01/13 21:13 Order name: CBC with Diff; Complete Time: 22:13 [facility] 01/13 21:13 Order name: Basic Metabolic Panel; Complete Time: 22:36 8 01/13 21:13 Order name: Magnesium; Complete Time: 22:37 jr8 01/13 21:13 Order name: Strep; Complete Time: 22:47 8 01/13 22:09 Order name: CREATININE WHOLE BLOOD; Complete Time: 22:13 EDWA 01/13 22:41 Order name: Throat Culture EDWA 01/13 21:13 Order name: IV; Complete Time: 21:47 jr8 01/13 21:14 Order name: CT Soft Tissue Neck W/contr jr8 Administered Medications: No medications were administered Disposition: 05:40 Co-signature as Attending Physician, Jatin Mckeon MD I agree with the assessment and tw4 plan of care. Disposition: 01/15/20 00:43 Discharged to Home. Impression: Dysphagia. - Condition is Stable. - Discharge Instructions: Dysphagia. - Medication Reconciliation Form, Thank You Letter, Antibiotic Education, Prescription Opioid Use form. - Follow up: Abby Freed MD; When: 1 - 2 days; Reason: Recheck today's complaints, Continuance of care, Re-evaluation by your physician. - Problem is new. - Symptoms are unchanged. Signatures: Dispatcher [employer] EDMS Denny Woods PA PA jr8 Dami Gonzalez, RN RN jd3 Jatin Mckeon MD MD tw4 Perri Giron RN RN ls4 Corrections: (The following items were deleted from the chart) 00:43 00:33 ED course: No lab or imaging abnormality noted. Patient able to tolerate fluids. jr8 Will send home . jr8 01:01 00:43 01/15/2020 00:43 Discharged to Home. Impression: Dysphagia. Condition is Stable. ls4 Forms are Medication Reconciliation Form, Thank You Letter, Antibiotic Education, Prescription Opioid Use. Follow up: Abby Freed; When: 1 - 2 days; Reason: Recheck today's complaints, Continuance of care, Re-evaluation by your physician. Problem is new. Symptoms are unchanged. jr8
[2020-01-15 01:24] VITALS: TEMP 97.6
[2020-01-15 01:30] VITALS: O2SAT 99
[2020-01-15 01:34] VITALS: BP 123/78
--- NOTE | 2020-01-15 08:44 | RAD REPORT ---
EXAM DESCRIPTION: CT - Soft Tissue Neck W/Contr - 01/14/2020 10:17 pm CLINICAL HISTORY: Dysphagia TECHNIQUE: Contiguous axial images obtained through the neck following the uneventful administration of IV contrast. Coronal and sagittal reformatted images were provided. This exam was performed according to our departmental dose-optimization program, which includes autom ated exposure control, adjustment of the mA and/or kV according to patient size and/or use of iterati ve reconstruction technique. COMPARISON: None available for comparison FINDINGS: Oropharynx: Unremarkable. No significant tonsillar enlargement. No peritonsillar abscess. Hypopharynx: Unremarkable Larynx: Unremarkable. Normal epiglottis. Trachea: Unremarkable Retropharyngeal space: Unremarkable Submandibular/parotid glands: Unremarkable. Normal in size. Thyroid: Unremarkable Bones/joints: Unremarkable Soft tissues: Unremarkable Vessels: Unremarkable Lymph nodes: No pathologically enlarged lymph nodes. Paranasal sinuses: Well-aerated Mastoid air cells: Well-aerated Lung apices: Unremarkable as visualized IMPRESSION: No acute abnormality. Electronically signed by: Juan Alberto Fraser MD 01/14/2020 10:33 PM CDT Due to temporary technical issues with the PACS/Fluency reporting system, reports are being signed by the in house radiologist without review as a courtesy to ensure prompt reporting. The interpreting r adiologist is fully responsible for the content of the report.
== END 2020-01-15 01:01 | disposition home or self-care (01) ==
LOC: ER 19:48
DX: R13.10 Dysphagia, unspecified (principal); F41.9 Anxiety disorder, unspecified
CPT/HCPCS: 87070; 85025; 80048; 36415; 83735; 82565; 87081; 70491; 99284; Q9967

== ENCOUNTER 2020-04-28 20:25 | Emergency (ER) | payer BC, OTHER ==
[2020-04-28 21:01] LABS: Absolute Lymphocytes (CBC) 2.1 K/uL (0.7-4.9); Basophils % 0.3 % (0-1.3); Hematocrit 41.6 % (36.0-45.0); Lymphocytes % 33.3 % (15.3-44.8); MPV 9.9 fL (7.6-11.3); Protime INR 1.1; RBC Red Blood Cell Count 5.04 M/uL (3.86-4.86)
[2020-04-28 21:06] LABS: ALT/SGPT 49 U/L (12-78); AST/SGOT 37 U/L (15-37); Albumin 3.6 g/dL (3.4-5.0); Alkaline Phosphatase 60 U/L (45-117); BUN Blood Urea Nitrogen 5 mg/dL (7-18); Bicarbonate 26 mmol/L (21-32); Bilirubin Direct 0.1 mg/dL (0-0.2); Bilirubin Total 0.3 mg/dL (0.2-1.0); Glucose Level 103 mg/dL (74-106); Magnesium 2.3 mg/dL (1.8-2.4); NT PRO-BNP 37 pg/mL (<125); Potassium 3.3 mmol/L (3.5-5.1); Protein, Total 8.3 g/dL (6.4-8.2); Sodium Level 139 mmol/L (136-145); Troponin (Emerg Dept Use Only) < 0.02 ng/mL (0.0-0.045)
[2020-04-28] MEDS ORDERED: LIDOCAINE VISCOUS 2% SOLN 15 ML UDC ONE (21:30)
[2020-04-28] MEDS ORDERED: POTASSIUM 25 MEQ EFFERV TAB ONE (21:30)
[2020-04-28] MEDS ORDERED: MAGNE/ALUM HYDROXD 30 ML UCUP ONE (21:30)
--- NOTE | 2020-04-28 22:22 | ER ---
Nurse's Notes [facility] Name: Arline Ordaz Age: 30 yrs Sex: Female : 1990 Arrival Date: 04/28/2020 Time: 20:26 Bed 7 Private MD: Diagnosis: Other chest pain Presentation: 04/28 20:29 Chief complaint: EMS states: Reports intermittent chest pain, radiates to right arm and rv light headedness that started at 6 PM. Pt reported she had a barium swallow test. Coronavirus screen: At this time, the client does not indicate any symptoms associated with coronavirus-19. The client reports previous COVID testing was negative. reports they tested her yesterday prior to her procedure. Ebola Screen: No symptoms or risks identified at this time. Initial Sepsis Screen: Does the patient meet any 2 criteria? No. Patient's initial sepsis screen is negative. Does the patient have a suspected source of infection? No. Patient's initial sepsis screen is negative. Risk Assessment: Do you want to hurt yourself or someone else? Patient reports no desire to harm self or others. Onset of symptoms was April 28, 2020. 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 - Social history:: Smoking status: Patient denies any tobacco usage or history of. Screenin:32 Abuse screen: Denies threats or abuse. Nutritional screening: No deficits noted. rv Tuberculosis screening: No symptoms or risk factors identified. Fall Risk None identified. Assessment: 20:30 General: Appears in no apparent distress. Behavior is calm, cooperative, appropriate ea for age. Pain: Complains of pain in chest Pain radiates to right arm Pain began suddenly. Neuro: Level of Consciousness is awake, alert, obeys commands, Oriented to person, place, time, situation. Cardiovascular: Patient's skin is warm and dry. Respiratory: Airway is patent Respiratory effort is even, unlabored, Respiratory pattern is regular, symmetrical. Derm: Skin is dry, Skin is pale, Skin temperature is warm. 21:24 Reassessment: Patient and/or family updated on plan of care and expected duration. Pain ea level reassessed. Patient is alert, oriented x 3, equal unlabored respirations, skin warm/dry/pink. 22:37 Reassessment: Patient and/or family updated on plan of care and expected duration. Pain ea level reassessed. Patient is alert, oriented x 3, equal unlabored respirations, skin warm/dry/pink. Discharge instruction given to patient, verbalized the understanding of instruction. Pt left ED ambulatory tolerating well. Vital Signs: 20:29 BP 113 / 90; Pulse 70; Resp 18; Temp 98.1; Pulse Ox 98% ; Height 5 ft. 9 in. (175.26 rv cm); Pain 8/10; 22:21 BP 99 / 62; Pulse 81; Resp 18; Pulse Ox 99% on R/A; ea 22:36 BP 102 / 69; Pulse 77; Resp 16; Temp 98; Pulse Ox 99% on R/A; rv ED Course: 20:26 Patient arrived in ED. cf2 20:29 Jatin Mckeon MD is Attending Physician. tw4 20:31 Triage completed. rv 20:32 Patient has correct armband on for positive identification. Placed in gown. Bed in low rv position. Call light in reach. Side rails up X2. 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 Pulse ox on. NIBP on. 20:32 Arm band placed on right wrist. Patient placed in an exam room, on a stretcher, on rv pulse oximetry. 20:32 Patient maintains SpO2 saturation greater than 95% on room air. rv 20:40 Inserted saline lock: 20 gauge in right antecubital area, using aseptic technique. rv Blood collected. 20:40 Initial lab(s) drawn, by me, sent to lab. rv 21:14 XRAY Chest (1 view) In Process Unspecified. EDMS 21:21 Verónica Scott, JOSE is Primary Nurse. ea 22:36 No provider procedures requiring assistance completed. IV discontinued, intact, rv bleeding controlled, No redness/swelling at site. Pressure dressing applied. Administered Medications: 21:22 Drug: GI Cocktail without - (Maalox Suspension 30 ml, Lidocaine Liquid 2 % 15 ea ml) Route: PO; 22:37 Follow up: Response: No adverse reaction rv 21:22 Drug: Potassium Effervescent Tablet 50 mEq Route: PO; ea 22:37 Follow up: Response: No adverse reaction rv Outcome: 22:21 Discharge ordered by . amanda 22:37 Discharged to home ambulatory. rv 22:37 Condition: good 22:37 Discharge instructions given to patient, Instructed on discharge instructions, follow up and referral plans. Demonstrated understanding of instructions, follow-up care. 22:37 Patient left the ED. rv Signatures: Dispatcher [employer] Verónica Hamm RN RN ea Wadley, Terrence, MD MD tw4 Damion Moore RN RN Karime Reyes 2
--- NOTE | 2020-04-28 22:22 | EDPHYS ---
Physician Documentation [facility] Name: Arline Ordaz Age: 30 yrs Sex: Female : 1990 Arrival Date: 04/28/2020 Time: 20:26 Bed 7 Private MD: ED Physician Jatin Mckeon HPI: 04/28 21:01 This 30 yrs old Female presents to ER via EMS with complaints of Chest Pain. tw4 21:01 The patient or guardian reports chest pain that is located primarily in the anterior tw4 chest wall. The pain does not radiate. Associated signs and symptoms: The patient has no apparent associated signs or symptoms. The chest pain is described as dull. Duration: The patient or guardian reports a single episode. Modifying factors: The symptoms are alleviated by nothing. the symptoms are aggravated by nothing. Severity of pain: At its worst the pain was moderate in the emergency department the pain has resolved. The patient has not experienced similar symptoms in the past. 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 - Social history:: Smoking status: Patient denies any tobacco usage or history of. ROS: 21:01 Constitutional: Negative for fever, chills, and weight loss, Eyes: Negative for injury, tw4 pain, redness, and discharge, Respiratory: Negative for shortness of breath, cough, wheezing, and pleuritic chest pain, Abdomen/GI: Negative for abdominal pain, nausea, vomiting, diarrhea, and constipation, Back: Negative for injury and pain, MS/Extremity: Negative for injury and deformity, Skin: Negative for injury, rash, and discoloration, Neuro: Negative for headache, weakness, numbness, tingling, and seizure. 21:01 Cardiovascular: Positive for chest pain, Negative for edema, orthopnea, palpitations, paroxysmal nocturnal dyspnea, acute changes. Exam: 21:01 Constitutional: This is a well developed, well nourished patient who is awake, alert, tw4 and in no acute distress. Head/Face: Normocephalic, atraumatic. Chest/axilla: Normal chest wall appearance and motion. Nontender with no deformity. No lesions are appreciated. Cardiovascular: Regular rate and rhythm with a normal S1 and S2. No gallops, murmurs, or rubs. Normal PMI, no JVD. No pulse deficits. Respiratory: Lungs have equal breath sounds bilaterally, clear to auscultation and percussion. No rales, rhonchi or wheezes noted. No increased work of breathing, no retractions or nasal flaring. Abdomen/GI: Soft, non-tender, with normal bowel sounds. No distension or tympany. No guarding or rebound. No evidence of tenderness throughout. Back: No spinal tenderness. No costovertebral tenderness. Full range of motion. Skin: Warm, dry with normal turgor. Normal color with no rashes, no lesions, and no evidence of cellulitis. MS/ Extremity: Pulses equal, no cyanosis. Neurovascular intact. Full, normal range of motion. Neuro: Awake and alert, GCS 15, oriented to person, place, time, and situation. Cranial nerves II-XII grossly intact. Motor strength 5/5 in all extremities. Sensory grossly intact. Cerebellar exam normal. Normal gait. Vital Signs: 20:29 BP 113 / 90; Pulse 70; Resp 18; Temp 98.1; Pulse Ox 98% ; Height 5 ft. 9 in. (175.26 rv cm); Pain 8/10; 22:21 BP 99 / 62; Pulse 81; Resp 18; Pulse Ox 99% on R/A; ea 22:36 BP 102 / 69; Pulse 77; Resp 16; Temp 98; Pulse Ox 99% on R/A; rv MDM: 20:29 Patient medically screened. tw4 22:12 Differential diagnosis: acute myocardial infarction, anxiety, cholecystitis, tw4 Cholelithiasis esophagitis, gastritis, pulmonary embolus, stable angina, unstable angina. HEART Score: History: Slightly Suspicious (0), ECG: Normal (0), Age: < or = 45 years (0), Risk Factors: No Risk Factors Known (0), Troponin: < or = 1 x Normal Limit (0), Total Score = 0. Data reviewed: vital signs, nurses notes. Data interpreted: Pulse oximetry: Interpretation: normal. Test interpretation: by ED physician or midlevel provider: ECG, plain radiologic studies. Counseling: I had a detailed discussion with the patient and/or guardian regarding: the historical points, exam findings, and any diagnostic results supporting the discharge/admit diagnosis, lab results, radiology results. Special discussion: I discussed with the patient/guardian in detail that at this point there is no indication for admission to the hospital. It is understood, however, that if the symptoms persist or worsen the patient needs to return immediately for re-evaluation. 04/28 20:36 Order name: Basic Metabolic Panel; Complete Time: 21:10 04/28 20:36 Order name: CBC with Diff; Complete Time: 21:10 04/28 20:36 Order name: LFT's; Complete Time: 21:10 04/28 20:36 Order name: Magnesium; Complete Time: 21:11 04/28 20:36 Order name: NT PRO-BNP; Complete Time: 21:11 04/28 20:36 Order name: PT-INR; Complete Time: 21:11 04/28 20:36 Order name: Troponin (emerg Dept Use Only); Complete Time: 21:11 04/28 20:36 Order name: XRAY Chest (1 view) 04/28 20:36 Order name: EKG; Complete Time: 20:37 04/28 20:36 Order name: Cardiac monitoring; Complete Time: 21:24 04/28 20:36 Order name: EKG - Nurse/Tech; Complete Time: 21:24 04/28 20:36 Order name: IV Saline Lock; Complete Time: 21:24 04/28 20:36 Order name: Labs collected and sent; Complete Time: 21:24 04/28 20:36 Order name: O2 Per Protocol; Complete Time: 21:24 04/28 20:36 Order name: O2 Sat Monitoring; Complete Time: 21:24 4 EC: Rate is 66 beats/min. Rhythm is regular. QRS [place] is Normal. IN interval is normal. QRS tw4 interval is normal. QT interval is normal. No Q waves. T waves are Normal. No ST changes noted. Clinical impression: Normal ECG. Interpreted by me. Reviewed by me. Administered Medications: 21:22 Drug: GI Cocktail without - (Maalox Suspension 30 ml, Lidocaine Liquid 2 % 15 ea ml) Route: PO; 22:37 Follow up: Response: No adverse reaction rv 21:22 Drug: Potassium Effervescent Tablet 50 mEq Route: PO; ea 22:37 Follow up: Response: No adverse reaction rv Disposition: 04/28/20 22:21 Discharged to Home. Impression: Other chest pain. - Condition is Stable. - Discharge Instructions: Nonspecific Chest Pain. - Medication Reconciliation Form, Thank You Letter, Antibiotic Education, Prescription Opioid Use form. - Follow up: Private Physician; When: Upon discharge from the Emergency Department; Reason: Recheck today's complaints, Continuance of care, Re-evaluation by your physician. - Problem is new. - Symptoms have improved. Signatures: Dispatcher [employer] EDVerónica Norris RN RN Jatin Suarez MD MD tw4 Damion Moore RN RN rv Corrections: (The following items were deleted from the chart) 22: 22:21 04/28/2020 22:21 Discharged to Home. Impression: Other chest pain. Condition is tw4 Stable. Forms are Medication Reconciliation Form, Thank You Letter, Antibiotic Education, Prescription Opioid Use. Follow up: Private Physician; When: Upon discharge from the Emergency Department; Reason: Recheck today's complaints, Continuance of care, Re-evaluation by your physician. tw4 22:37 22:21 04/28/2020 22:21 Discharged to Home. Impression: Other chest pain. Condition is rv Stable. Forms are Medication Reconciliation Form, Thank You Letter, Antibiotic Education, Prescription Opioid Use. Follow up: Private Physician; When: Upon discharge from the Emergency Department; Reason: Recheck today's complaints, Continuance of care, Re-evaluation by your physician. Problem is new. Symptoms have improved. tw4
--- NOTE | 2020-04-29 11:39 | EKG ---
Test Date: 2020-04-28 Test Time: 20:34:50 [employer]: RV MEASUREMENT RESULTS: Intervals: Rate: 66 MA: 140 QRSD: 92 QT: 412 QTc: 431 [employer]: P: 80 MA: 140 QRS: 18 T: 18 INTERPRETIVE STATEMENTS: Normal sinus rhythm Normal ECG Compared to ECG 08/31/2018 21:03:41 No significant changes Electronically Signed On 04-29-20 11:37:22 CDT by Cole Barrios
--- NOTE | 2020-04-29 11:53 | RAD REPORT ---
EXAM DESCRIPTION: RAD - Chest Single View - 04/28/2020 10:23 pm CLINICAL HISTORY: CHEST PAIN Chest pain. COMPARISON: Chest Single View dated 08/31/2018; Chest Single View dated 07/24/2018; CHEST SINGLE VIEW dated 10/12/2015 FINDINGS: Portable technique limits examination quality. The lungs are grossly clear. The heart is normal in size. No displaced fractures. IMPRESSION: No acute intrathoracic process suspected.
== END 2020-04-28 22:37 | disposition home or self-care (01) ==
LOC: ER 20:25
DX: R07.89 Other chest pain (principal); F41.9 Anxiety disorder, unspecified; R01.1 Cardiac murmur, unspecified
CPT/HCPCS: 36415; 71045; 80048; 80076; 83735; 83880; 84484; 85025; 85610; 93005; 99285

== ENCOUNTER 2020-06-21 12:40 | Emergency (ER) | payer BC, OTHER ==
--- OUTSIDE RECORDS SUMMARY | 2020-06-21 12:42 | XMS REPORT | Continuity of Care Document ---
:1990 Author Organization [facility] t Address [address] [place] [address] Dr. Koo [address] [place] [id number] Care Team Providers Name Role Phone Unavailable Unavailable Unavailable Problems This patient has no known problems. Allergies, Adverse Reactions, Alerts This patient has no known allergies or adverse reactions. Medications This patient has no known medications. Procedures This patient has no known procedures. Results This patient has no known results.
[2020-06-21] MEDS ORDERED: ONDANSETRON 4 MG/2 ML VIAL ONE (13:21)
[2020-06-21] MEDS ORDERED: NA CHLORIDE 0.9% 1,000 ML ONE (13:22)
[2020-06-21] MEDS ORDERED: KETOROLAC 30 MG/ML INJ ONE (13:22)
[2020-06-21 14:20] LABS: Urine Blood TRACE (NEG); Urine Glucose NEGATIVE (NEG); Urine Protein NEGATIVE (NEG); Urine Specific Gravity <1.005 (1.005-1.030)
[2020-06-21 15:05] LABS: ALT/SGPT 45 U/L (12-78); AST/SGOT 29 U/L (15-37); Albumin 3.5 g/dL (3.4-5.0); Alkaline Phosphatase 52 U/L (45-117); BUN Blood Urea Nitrogen 5 mg/dL (7-18); Bicarbonate 27 mmol/L (21-32); Bilirubin Direct 0.1 mg/dL (0-0.2); Bilirubin Total 0.4 mg/dL (0.2-1.0); Glucose Level 82 mg/dL (74-106); Lipase 179 U/L (73-393); Potassium 3.9 mmol/L (3.5-5.1); Protein, Total 7.7 g/dL (6.4-8.2); Sodium Level 141 mmol/L (136-145)
[2020-06-21 15:17] LABS: Absolute Lymphocytes (CBC) 2.2 K/uL (0.7-4.9); Basophils % 0.5 % (0-1.3); Hematocrit 41.8 % (36.0-45.0); Lymphocytes % 33.4 % (15.3-44.8); MPV 9.9 fL (7.6-11.3)
--- NOTE | 2020-06-21 15:48 | RAD REPORT ---
EXAM DESCRIPTION: CTAbdomen Pelvis W Contrast - 06/21/2020 3:31 pm CLINICAL HISTORY: Abdominal pain. ABD PAIN COMPARISON: Abdomen Pelvis W Contrast dated 07/24/2018; CT ABD PELVIS W CONTRAST dated 06/04/2012 TECHNIQUE: Biphasic CT imaging of the abdomen and pelvis was performed with 100 ml non-ionic IV cont rast. All CT scans are performed using dose optimization technique as appropriate and may include automated exposure control or mA/KV adjustment according to patient size. FINDINGS: The lung bases are clear. The liver, spleen, pancreas, adrenal glands and kidneys are within normal limits. No bowel obstruction, free air, free fluid or abscess. The appendix is the upper limit of normal cody suring 8 mm and contains a small appendicolith. Advise correlation with right lower quadrant symptomo logy. No evidence of significant lymphadenopathy. No suspicious bony findings. IMPRESSION: The appendix is upper limit of normal measuring 8 mm and contains a small appendicolith. No significant inflammation is seen surrounding the appendix, however correlation with right lower q uadrant symptomology is advised.
--- NOTE | 2020-06-21 16:01 | ER ---
Nurse's Notes [facility] Name: Arline Ordaz Age: 30 yrs Sex: Female : 1990 Arrival Date: 06/21/2020 Time: 12:43 Bed 19 Private MD: Ramesh Nielsen H Diagnosis: Lower abdominal pain, unspecified-LLQ Presentation: 06/21 12:47 Chief complaint: Patient states: LUQ pain, bloody stool this morning. Denies N/V/D. ca1 Coronavirus screen: Client denies travel out of the [place] in the last 14 days. At this time, the client does not indicate any symptoms associated with coronavirus-19. The client reports previous COVID testing was negative. Date of collection: March 2020. Ebola Screen: Patient negative for fever greater than or equal to 101.5 degrees Fahrenheit, and additional compatible Ebola Virus Disease symptoms Patient denies exposure to infectious person. Patient denies travel to an Ebola-affected area in the 21 days before illness onset. No symptoms or risks identified at this time. Initial Sepsis Screen: Does the patient meet any 2 criteria? No. Patient's initial sepsis screen is negative. Does the patient have a suspected source of infection? No. Patient's initial sepsis screen is negative. Risk Assessment: Do you want to hurt yourself or someone else? Patient reports no desire to harm self or others. Onset of symptoms was June 21, 2020. 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 - Social history:: Smoking status: Patient denies any tobacco usage or history of. Screenin:30 Abuse screen: Denies threats or abuse. Denies injuries from another. Nutritional zb screening: No deficits noted. Tuberculosis screening: No symptoms or risk factors identified. Fall Risk No fall in past 12 months (0 pts). No secondary diagnosis (0 pts). IV access (20 points). Ambulatory Aid- None/Bed Rest/Nurse Assist (0 pts). Gait- Normal/Bed Rest/Wheelchair (0 pts) Mental Status- Oriented to own ability (0 pts). Total Pelayo Fall Scale indicates No Risk (0-24 pts). Assessment: 13:38 General: Appears in no apparent distress. uncomfortable, Behavior is calm, cooperative, zb appropriate for age. Pain: Complains of pain in right upper quadrant, left upper quadrant and left lower quadrant Pain does not radiate. Quality of pain is described as aching, sharp, Is continuous. Neuro: Level of Consciousness is awake, alert, obeys commands, Oriented to person, place, time, situation. Cardiovascular: Capillary refill < 3 seconds in bilateral fingers Patient's skin is warm and dry. Respiratory: Airway is patent Respiratory effort is even, unlabored, Respiratory pattern is regular, Breath sounds are clear bilaterally. GI: Abdomen is round non-distended, Bowel sounds present X 4 quads. Abd is soft X 4 quads Abdomen is tender to palpation in left upper quadrant and left lower quadrant Reports rectal bleeding, Patient currently denies constipation, nausea, vomiting. 15:00 Reassessment: Patient appears in no apparent distress at this time. Patient is alert, zb oriented x 3, equal unlabored respirations, skin warm/dry/pink. pt lying in bed. 16:00 Reassessment: Patient appears in no apparent distress at this time. Patient and/or zb family updated on plan of care and expected duration. Pain level reassessed. Patient is alert, oriented x 3, equal unlabored respirations, skin warm/dry/pink. pt and family at bedside. PVU of d/c instructions. Vital Signs: 12:47 BP 115 / 75; Pulse 90; Resp 16 S; Temp 97.7(TE); Pulse Ox 98% on R/A; Weight 90.26 kg ca1 (R); Height 5 ft. 9 in. (175.26 cm) (R); Pain 5/10; 13:50 BP 100 / 56; Pulse 61; Resp 18; Pulse Ox 100% on R/A; zb 14:50 BP 108 / 60; Pulse 70; Resp 18; Pulse Ox 100% on R/A; zb 15:50 BP 107 / 58; Pulse 68; Resp 18; Pulse Ox 100% on R/A; zb 12:47 Body Mass Index 29.39 (90.26 kg, 175.26 cm) ca1 ED Course: 12:43 Patient arrived in ED. ag5 12:43 Ramesh Nielsen DO is Private Physician. ag5 12:48 Lilli Mae FNP-C is [facility]. kb 12:48 Roly Rose MD is Attending Physician. kb 12:48 Katarina Gary RN is Primary Nurse. zb 12:49 Triage completed. ca1 12:50 Arm band placed on right wrist. ca1 13:30 Patient has correct armband on for positive identification. Side rails up X 1. Pulse ox zb on. NIBP on. Door closed. Noise minimized. 13:38 Inserted saline lock: 22 gauge in left antecubital area, using aseptic technique. kj1 15:31 CT Abd/Pelvis - IV Contrast Only In Process Unspecified. EDMS 16:12 No provider procedures requiring assistance completed. IV discontinued, intact, zb bleeding controlled, No redness/swelling at site. Pressure dressing applied. Administered Medications: 13:49 Drug: TORadol - Ketorolac 15 mg Route: IVP; Site: left antecubital; zb 14:35 Follow up: Response: No adverse reaction; Pain is decreased zb 13:50 Drug: NS 0.9% 1000 ml Route: IV; Rate: 1000 ml; Site: left antecubital; zb 14:35 Follow up: Response: No adverse reaction; IV Status: Completed infusion; IV Intake: zb 1000ml 13:50 Drug: Zofran (Ondansetron) 4 mg Route: IVP; Site: left antecubital; zb 14:35 Follow up: Response: No adverse reaction zb Intake: 14:35 IV: 1000ml; Total: 1000ml. zb Outcome: 16:00 Discharge ordered by . kb 16:12 Discharged to home ambulatory, with family. zb 16:12 Condition: good 16:12 Discharge instructions given to patient, family, Instructed on discharge instructions, follow up and referral plans. medication usage, Demonstrated understanding of instructions, follow-up care, medications, Prescriptions given X 2. 16:13 Patient left the ED. zb Signatures: Dispatcher [employer] EDMS Lilli Mae, CORNELL NAIR-Onelia Ocampo RN RN ca1 Brunilda Li ag5 Elise Mae [place]or[place], RN RN zb
--- NOTE | 2020-06-21 16:01 | EDPHYS ---
Physician Documentation [facility] Name: Arline Ordaz Age: 30 yrs Sex: Female : 1990 Arrival Date: 06/21/2020 Time: 12:43 Bed 19 Private MD: Ramesh Nielsen H ED Physician Roly Rose HPI: 06/21 15:59 This 30 yrs old Female presents to ER via Ambulatory with complaints of kb Abdominal Pain, Bloody Stools. 15:59 The patient presents with abdominal pain in the left lower quadrant. Onset: The kb symptoms/episode began/occurred this morning. The symptoms do not radiate. Associated signs and symptoms: Pertinent positives: blood in stools. The symptoms are described as constant. Modifying factors: The symptoms are alleviated by nothing, the symptoms are aggravated by pressure. Severity of pain: At its worst the pain was moderate in the emergency department the pain is unchanged. The patient has not experienced similar symptoms in the past. The patient has not recently seen a physician. 15:59 Pt reports LLQ pain that started this morning and she noticed some blood in one BM this kb morning as well. . 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 - Social history:: Smoking status: Patient denies any tobacco usage or history of. ROS: 15:58 Constitutional: Negative for fever, chills, and weight loss, Cardiovascular: Negative kb for chest pain, palpitations, and edema, Respiratory: Negative for shortness of breath, cough, wheezing, and pleuritic chest pain, Back: Negative for injury and pain, MS/Extremity: Negative for injury and deformity, Skin: Negative for injury, rash, and discoloration, Neuro: Negative for headache, weakness, numbness, tingling, and seizure. 15:58 Abdomen/GI: Positive for abdominal pain, rectal bleeding. Exam: 15:58 Constitutional: This is a well developed, well nourished patient who is awake, alert, kb and in no acute distress. Head/Face: Normocephalic, atraumatic. Chest/axilla: Normal chest wall appearance and motion. Nontender with no deformity. No lesions are appreciated. Cardiovascular: Regular rate and rhythm with a normal S1 and S2. No gallops, murmurs, or rubs. Normal PMI, no JVD. No pulse deficits. Respiratory: Lungs have equal breath sounds bilaterally, clear to auscultation and percussion. No rales, rhonchi or wheezes noted. No increased work of breathing, no retractions or nasal flaring. Back: No spinal tenderness. No costovertebral tenderness. Full range of motion. Skin: Warm, dry with normal turgor. Normal color with no rashes, no lesions, and no evidence of cellulitis. MS/ Extremity: Pulses equal, no cyanosis. Neurovascular intact. Full, normal range of motion. Neuro: Awake and alert, GCS 15, oriented to person, place, time, and situation. Cranial nerves II-XII grossly intact. Motor strength 5/5 in all extremities. Sensory grossly intact. Cerebellar exam normal. Normal gait. 15:58 Abdomen/GI: Inspection: abdomen appears normal, Bowel sounds: normal, in all quadrants, Palpation: soft, in all quadrants, nontender, in the right upper quadrant and right lower quadrant, mild abdominal tenderness, in the left upper quadrant, moderate abdominal tenderness, in the left lower quadrant. Vital Signs: 12:47 BP 115 / 75; Pulse 90; Resp 16 S; Temp 97.7(TE); Pulse Ox 98% on R/A; Weight 90.26 kg ca1 (R); Height 5 ft. 9 in. (175.26 cm) (R); Pain 5/10; 13:50 BP 100 / 56; Pulse 61; Resp 18; Pulse Ox 100% on R/A; zb 14:50 BP 108 / 60; Pulse 70; Resp 18; Pulse Ox 100% on R/A; zb 15:50 BP 107 / 58; Pulse 68; Resp 18; Pulse Ox 100% on R/A; zb 12:47 Body Mass Index 29.39 (90.26 kg, 175.26 cm) ca1 MDM: 12:48 Patient medically screened. kb 15:57 Data reviewed: vital signs, nurses notes. Data interpreted: Pulse oximetry: on room air kb is 98 %. Interpretation: normal. 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 ED course: Pt educated on CT findings including appendix measuring upper limits of normal. Pt has no pain on right side of abdomen. Appendicitis is not suspected at this time based on exam. Pt educated to return immediately for RLQ pain, fever, or worsening symptoms.. 06/21 13:02 Order name: Basic Metabolic Panel; Complete Time: 15:06 kb 06/21 13:02 Order name: CBC with Diff; Complete Time: 15:19 kb 06/21 13:02 Order name: Hepatic Function; Complete Time: 15:06 kb 06/21 13:02 Order name: Lipase; Complete Time: 15:06 kb 06/21 13:14 Order name: Urine Dipstick--Ancillary (enter results); Complete Time: 14:23 bd 06/21 13:14 Order name: Urine --Ancillary (enter results); Complete Time: 14:23 bd 06/21 13:02 Order name: IV Saline Lock; Complete Time: 14:35 kb 06/21 13:02 Order name: Labs collected and sent; Complete Time: 14:35 kb 06/21 13:02 Order name: CT Abd/Pelvis - IV Contrast Only; Complete Time: 15:53 kb 06/21 13:02 Order name: Urine Dipstick-Ancillary (obtain specimen); Complete Time: 13:05 kb 06/21 13:02 Order name: Urine Test (obtain specimen); Complete Time: 13:05 kb 06/21 13:47 Order name: Labs - recollect needed: recollect labs; Complete Time: 14:34 bd Administered Medications: 13:49 Drug: TORadol - Ketorolac 15 mg Route: IVP; Site: left antecubital; zb 14:35 Follow up: Response: No adverse reaction; Pain is decreased zb 13:50 Drug: NS 0.9% 1000 ml Route: IV; Rate: 1000 ml; Site: left antecubital; zb 14:35 Follow up: Response: No adverse reaction; IV Status: Completed infusion; IV Intake: zb 1000ml 13:50 Drug: Zofran (Ondansetron) 4 mg Route: IVP; Site: left antecubital; zb 14:35 Follow up: Response: No adverse reaction zb Disposition: 06/21/20 16:00 Discharged to Home. Impression: Lower abdominal pain, unspecified - LLQ. - Condition is Stable. - Discharge Instructions: Abdominal Pain, Adult, [id number]. - Prescriptions for Bentyl 20 mg Oral Tablet - take 1 tablet by ORAL route every 6 hours As needed; 20 tablet. Zofran 4 mg Oral Tablet - take 1 tablet by ORAL route every 6 hours As needed; 20 tablet. - Medication Reconciliation Form, Thank You Letter, Antibiotic Education, Prescription Opioid Use form. - Follow up: Emergency Department; When: As needed; Reason: Worsening of condition. Follow up: Private Physician; When: 2 - 3 days; Reason: Recheck today's complaints, Continuance of care, Re-evaluation by your physician. Addendum: 06/26/2020 21:01 Co-signature as Attending Physician, Roly Rose MD Did not see or evaluate patient. p s1 Signature for administrative purposes. . Signatures: Dispatcher [employer] EDMS Lilli Mae, KOREY-C ASSISTANT DISTRIBUTION MANAGER-Josefina Fulton Phillip, MD MD ps1 Onelia Grimes RN Katarina Bullock RN RN zb Corrections: (The following items were deleted from the chart) 06/21 16:13 16:00 06/21/2020 16:00 Discharged to Home. Impression: Lower abdominal pain, zb unspecified - LLQ. Condition is Stable. Forms are Medication Reconciliation Form, Thank You Letter, Antibiotic Education, Prescription Opioid Use. Follow up: Emergency Department; When: As needed; Reason: Worsening of condition. Follow up: Private Physician; When: 2 - 3 days; Reason: Recheck today's complaints, Continuance of care, Re-evaluation by your physician. kb
[2020-06-21 21:30] VITALS: TEMP 97.7
[2020-06-21 21:32] VITALS: O2SAT 100
[2020-06-21 21:35] VITALS: BP 107/58
== END 2020-06-21 16:13 | disposition home or self-care (01) ==
LOC: ER 12:40
DX: R10.32 Left lower quadrant pain (principal); F41.9 Anxiety disorder, unspecified
CPT/HCPCS: 96361; 85025; 80048; 36415; 81025; 80076; 81003; 83690; 74177; 96375; 96374; 99284; Q9967; J7030; J2405

== ENCOUNTER 2021-12-28 09:38 | Emergency (ER) | payer BC, OTHER ==
--- OUTSIDE RECORDS SUMMARY | 2021-12-28 09:42 | XMS REPORT | Continuity of Care Document ---
:1990 Author Organization [facility] t Address [address] [place] [address] Dr. K[address] [place] [id number] Care Team Providers Name Role Phone NIKKI FAUSTIN Attending Clinician Unavailable NIKKI FAUSTIN Admitting Clinician Unavailable Problems This patient has no known problems. Allergies, Adverse Reactions, Alerts This patient has no known allergies or adverse reactions. Medications This patient has no known medications. Procedures This patient has no known procedures. Encounters Start End Encounter Admission Attending Care Care Encounter Source Date/Time Date/Time Type Type Clinicians Facility Department ID 2021-05-06 Outpatient BENJAMIN FAUSTIN Surgery [id number] [facility] 10:23:19 SUNEAL Results This patient has no known results.
--- NOTE | 2021-12-28 10:07 | ER ---
Nurse's Notes [facility] Name: Arline Ordaz Age: 31 yrs Sex: Female : 1990 Arrival Date: 12/28/2021 Time: 09:41 Bed 19 Private MD: Diagnosis: Dental caries, unspecified;Dental Abscess Presentation: 12/28 09:47 Chief complaint: Patient states: the left side of my face is swelling. it started 2 tw2 days ago. i have a bad tooth on the upper side of my left and now it radiates down to the bottom. Coronavirus screen: At this time, the client does not indicate any symptoms associated with coronavirus-19. Ebola Screen: Patient denies travel to an Ebola-affected area in the 21 days before illness onset. Initial Sepsis Screen: Does the patient meet any 2 criteria? No. Patient's initial sepsis screen is negative. Does the patient have a suspected source of infection? No. Patient's initial sepsis screen is negative. Risk Assessment: Do you want to hurt yourself or someone else? Patient reports no desire to harm self or others. Onset of symptoms was December 28, 2021. 09:47 Method Of Arrival: Ambulatory tw2 09:47 Acuity: ALPESH 4 tw2 Triage Assessment: 09:48 General: Appears in no apparent distress. uncomfortable, Behavior is calm, cooperative, tw2 appropriate for age. Pain: Complains of pain in left cheek. EENT: Reports pain from bad tooth. Neuro: Level of Consciousness is awake, alert, obeys commands, Oriented to person, place, time, situation. Respiratory: Airway is patent Respiratory effort is even, unlabored, Respiratory pattern is regular, symmetrical. Historical: - Allergies: 09:48 No Known Drug Allergies; tw2 - Home Meds: 09:48 Dicyclomine solutions Oral [Active]; tw2 - PMHx: 09:48 esophagus narrowing; Anxiety; Heart Murmur; tw2 - PSHx: 09:48 section; tw2 - Immunization history:: Adult Immunizations Client reports having NOT received the Covid vaccine. - Social history:: Smoking status: Patient denies any tobacco usage or history of. Screenin:52 Abuse screen: Denies threats or abuse. Nutritional screening: No deficits noted. tw2 Tuberculosis screening: No symptoms or risk factors identified. Fall Risk None identified. Assessment: 10:01 General: Appears in no apparent distress. uncomfortable, Behavior is calm, cooperative, jd3 appropriate for age. Pain: Complains of pain in jaw Pain radiates to left ear Quality of pain is described as tender. Neuro: Koroma Agitation-Sedation Scale (RASS): 0 - Alert and Calm Level of Consciousness is awake, alert, obeys commands, Oriented to person, place, time, situation. Cardiovascular: Denies chest pain, Capillary refill < 3 seconds Patient's skin is warm and dry. Respiratory: Airway is patent Respiratory effort is even, unlabored, Respiratory pattern is regular, symmetrical, Denies cough, shortness of breath. GI: No signs and/or symptoms were reported involving the gastrointestinal system. : No signs and/or symptoms were reported regarding the genitourinary system. EENT: dental caries noted. Reports pain in left jaw. Derm: Skin is intact, Skin is dry, Skin is normal, Skin temperature is warm. Musculoskeletal: Circulation, motion, and sensation intact. Range of motion: intact in all extremities. 10:15 Reassessment: Patient appears in no apparent distress at this time. Patient and/or jd3 family updated on plan of care and expected duration. Pain level reassessed. Patient is alert, oriented x 3, equal unlabored respirations, skin warm/dry/pink. Vital Signs: 09:49 BP 121 / 65; Pulse 99; Resp 17; Temp 99.3(TE); Pulse Ox 97% on R/A; Pain 9/10; tw2 ED Course: 09:41 Patient arrived in ED. bp1 09:45 Yuri Wilkerson MD is Attending Physician. joyce 09:48 Triage completed. tw2 09:49 Arm band placed on. tw2 09:50 Bed in low position. tw2 09:57 Dami Gonzalez, JOSE is Primary Nurse. jd3 09:59 Nasima Toney FNP is [facility]. jh7 10:06 Pj Castro DDS is Referral Physician. jh7 10:15 No provider procedures requiring assistance completed. Patient did not have IV access jd3 during this emergency room visit. Administered Medications: 10:09 Drug: Ketorolac 60 mg Route: IM; Site: right gluteus; jd3 10:20 Follow up: Response: No adverse reaction jd3 Medication: 10:04 VIS not applicable for this client. jd3 Outcome: 10:07 Discharge ordered by . jh7 10:15 Condition: stable jd3 10:15 Discharge instructions given to patient, Instructed on discharge instructions, follow up and referral plans. medication usage, Demonstrated understanding of instructions, follow-up care, medications, Prescriptions given X 3. 10:21 Discharged to home ambulatory, with family. jd3 10:21 Patient left the ED. jd3 Signatures: Yuri Wilkerson MD MD cha Wise, Tara, RN RN tw2 Dami Gonzalez, RN RN jd3 Lashanda Brown Jennifer, KOREY NICHOLSONP 7
--- NOTE | 2021-12-28 10:08 | EDPHYS ---
Physician Documentation [facility] Name: Arline Ordaz Age: 31 yrs Sex: Female : 1990 Arrival Date: 12/28/2021 Time: 09:41 Bed 19 Private MD: MICHELLE Physician Yuri Wilkerson HPI: 12/28 10:09 This 31 yrs old Female presents to ER via Ambulatory with complaints of Ear Pain, jh7 dental pain, and Mouth Swelling. 10:09 Onset: The symptoms/episode began/occurred 1 week(s) ago. Patient complains of left jh7 upper tooth pain, gum pain, and ear pain. States that her last dental visit was 1 year ago, and that her dentist said that she needed to have 2 teeth pulled. Reports that she has to pay $500 to get the procedure done, and she cannot afford it at this time.. Historical: - Allergies: 09:48 No Known Drug Allergies; tw2 - Home Meds: 09:48 Dicyclomine solutions Oral [Active]; tw2 - PMHx: 09:48 esophagus narrowing; Anxiety; Heart Murmur; tw2 - PSHx: 09:48 section; tw2 - Immunization history:: Adult Immunizations Client reports having NOT received the Covid vaccine. - Social history:: Smoking status: Patient denies any tobacco usage or history of. ROS: 10:09 Constitutional: Negative for fever, chills, and weight loss, Eyes: Negative for injury, jh7 pain, redness, and discharge, Neck: Negative for injury, pain, and swelling, Cardiovascular: Negative for chest pain, palpitations, and edema, Respiratory: Negative for shortness of breath, cough, wheezing, and pleuritic chest pain, Abdomen/GI: Negative for abdominal pain, nausea, vomiting, diarrhea, and constipation, Skin: Negative for injury, rash, and discoloration, Neuro: Negative for headache, weakness, numbness, tingling, and seizure. 10:09 ENT: Positive for dental pain, ear pain, Gum pain Teeth pain Negative for rhinorrhea, sinus congestion, sinus pain, sore throat, hoarseness. 10:09 All other systems are negative. Exam: 10:09 Constitutional: This is a well developed, well nourished patient who is awake, alert, jh7 and in no acute distress. Head/Face: Normocephalic, atraumatic. Eyes: Pupils equal round and reactive to light, extra-ocular motions intact. Lids and lashes normal. Conjunctiva and sclera are non-icteric and not injected. Cornea within normal limits. Periorbital areas with no swelling, redness, or edema. Neck: Trachea midline, no thyromegaly or masses palpated, and no cervical lymphadenopathy. Supple, full range of motion without nuchal rigidity, or vertebral point tenderness. No Meningismus. Cardiovascular: Regular rate and rhythm with a normal S1 and S2. No gallops, murmurs, or rubs. Normal PMI, no JVD. No pulse deficits. Respiratory: Lungs have equal breath sounds bilaterally, clear to auscultation and percussion. No rales, rhonchi or wheezes noted. No increased work of breathing, no retractions or nasal flaring. Back: No spinal tenderness. No costovertebral tenderness. Full range of motion. Skin: Warm, dry with normal turgor. Normal color with no rashes, no lesions, and no evidence of cellulitis. Neuro: Awake and alert, GCS 15, oriented to person, place, time, and situation. Motor strength 5/5 in all extremities. Sensory grossly intact. Normal gait. 10:09 ENT: External ear(s): are unremarkable, Ear canal(s): are normal, TM's: are normal, Nose: is normal, Posterior pharynx: is normal, Dental exam: cellulitis, specifically in the upper left first molar (#14) and upper left second molar (#15), dental caries, that is severe, gum swelling, that is moderate. Vital Signs: 09:49 BP 121 / 65; Pulse 99; Resp 17; Temp 99.3(TE); Pulse Ox 97% on R/A; Pain 9/10; tw2 MDM: 09:59 Patient medically screened. [facility] 10:09 Differential diagnosis: Severe dental caries, gingivitis, dental abscess. Data [facility] reviewed: vital signs, nurses notes. Data interpreted: Pulse oximetry: is 97 %. Interpretation: normal. Counseling: I had a detailed discussion with the patient and/or guardian regarding: the historical points, exam findings, and any diagnostic results supporting the discharge/admit diagnosis, the need for outpatient follow up, a dentist, to return to the emergency department if symptoms worsen or persist or if there are any questions or concerns that arise at home. ED course: The patient remained stable throughout the ER visit. Informed her that we would give her medication for pain and antibiotics, but that she needed to follow-up with a dentist to have teeth extracted. Patient may return anytime if she has any other concerns.. Administered Medications: 10:09 Drug: Ketorolac 60 mg Route: IM; Site: right gluteus; jd3 10:20 Follow up: Response: No adverse reaction jd3 Disposition Summary: 12/28/21 10:07 Discharge Ordered Location: Home [facility] Problem: new [facility] Symptoms: are unchanged [facility] Condition: Stable [facility] Diagnosis - Dental caries, unspecified [facility] - Dental Abscess [facility] Followup: [facility] - With: Pj Castro DDS - When: Tomorrow - Reason: Further diagnostic work-up Discharge Instructions: - Discharge Summary Sheet [facility] - Dental Abscess [facility] - Dental Caries, Adult [facility] - Dental Pain [facility] Forms: - Work release form tw2 - Medication Reconciliation Form [facility] - Thank You Letter [facility] - Antibiotic Education [facility] - Prescription Opioid Use [facility] Prescriptions: - Augmentin 875-125 mg Oral Tablet - take 1 tablet by ORAL route every 12 hours for 10 days; 20 tablet; Refills: 0, [facility] Product Selection Permitted - Naprosyn 500 mg Oral Tablet - take 1 tablet by ORAL route 2 times per day take with food; 30 tablet; Refills: [facility] 0, Product Selection Permitted - Tramadol 50 mg Oral Tablet - take 1 tablet by ORAL route every 8 hours as needed; 12 tablet; Refills: 0, [facility] Product Selection Permitted Signatures: Cinda Love, RN RN tw2 Dami Gonzalez RN RN jd3 Nasima Toney FNP FNP [facility]
[2021-12-28] MEDS ORDERED: KETOROLAC 30 MG/ML INJ ONE (10:11)
[2021-12-28 10:26] VITALS: BP 121/65; TEMP 99.3; O2SAT 97
== END 2021-12-28 10:21 | disposition home or self-care (01) ==
LOC: ER 09:38
DX: K04.7 Periapical abscess without sinus (principal); F41.9 Anxiety disorder, unspecified
CPT/HCPCS: 96372; 99283

== ENCOUNTER 2022-04-22 04:48 | Emergency (ER) | payer BC, OTHER ==
--- OUTSIDE RECORDS SUMMARY | 2022-04-22 04:50 | XMS REPORT | Continuity of Care Document ---
:1990 Author Organization [facility] t Address [address] [place] [address] Dr. Koo [address] [place] [id number] Care Team Providers Name Role Phone AIRAM FAUSTIN Attending Clinician Unavailable AIRAM FAUSTIN Admitting Clinician Unavailable Problems This patient has no known problems. Allergies, Adverse Reactions, Alerts This patient has no known allergies or adverse reactions. Social History Social Habit Start Date Stop Date Quantity Comments Source Sex Assigned At [address] [facility] 00:00:00 00:00:00 [facility] Medications This patient has no known medications. Procedures This patient has no known procedures. Encounters Start End Encounter Admission Attending Care Care Encounter Source Date/Time Date/Time Type Type Clinicians Facility Department ID 2021-05-06 Outpatient BENJAMIN FAUSTIN Surgery [id number] [facility] 10:23:19 AIRAM Results This patient has no known results.
[2022-04-22] MEDS ORDERED: METOCLOPRAMIDE 10 MG/2mL INJ ONE (06:09)
[2022-04-22] MEDS ORDERED: NA CHLORIDE 0.9% 1,000 ML ONE (06:10)
[2022-04-22] MEDS ORDERED: DIPHENHYDRAMINE 50 MG/ML VIAL ONE (06:10)
[2022-04-22] MEDS ORDERED: KETOROLAC 30 MG/ML INJ ONE (06:10)
[2022-04-22 06:11] LABS: Absolute Lymphocytes (CBC) 2.6 K/uL (0.7-4.9); Lymphocytes % 43.6 % (15.3-44.8); MCV 86.9 fL (80-100); MPV 8.2 fL (7.6-11.3); RBC Red Blood Cell Count 4.61 M/uL (3.86-4.86)
[2022-04-22 06:13] LABS: Urine Blood Negative (Negative); Urine Glucose Negative (Negative); Urine Protein Negative (Negative); Urine Specific Gravity >=1.030 (1.005-1.030)
[2022-04-22 06:16] LABS: Albumin 3.6 g/dL (3.4-5.0); Bilirubin Total 0.3 mg/dL (0.2-1.0); Potassium 3.5 mmol/L (3.5-5.1); Protein, Total 7.6 g/dL (6.4-8.2)
[2022-04-22 06:18] LABS: Urine Mucus Slight /HPF (None Seen); Urine RBC <5 /HPF (None Seen)
--- NOTE | 2022-04-22 06:48 | ER ---
Nurse's Notes [facility] Name: Arline Ordaz Age: 32 yrs Sex: Female : 1990 Arrival Date: 04/22/2022 Time: 04:51 Bed 18 Private MD: Diagnosis: Cephalgia;Nausea and vomiting;Lower abdominal pain Presentation: 04/22 05:02 Chief complaint: Patient states: I have a really bad headache, nausea, and abdominal ha1 pain. Also, I have burning sensation in my vaginal area. Coronavirus screen: Vaccine status: Patient reports being unvaccinated. Ebola Screen: No symptoms or risks identified at this time. Initial Sepsis Screen: Does the patient meet any 2 criteria? No. Patient's initial sepsis screen is negative. Does the patient have a suspected source of infection? No. Patient's initial sepsis screen is negative. Risk Assessment: Do you want to hurt yourself or someone else? Patient reports no desire to harm self or others. Onset of symptoms was April 22, 2022. 05:02 Method Of Arrival: Ambulatory ha1 05:02 Acuity: ALPESH 3 ha1 Triage Assessment: 05:07 Headache History: The patient has had previous headaches and this one is similar to 1 previous episodes. General: Appears uncomfortable, Behavior is calm, cooperative. Pain: Complains of pain in head and vaginal burning Pain currently is 7 out of 10 on a pain scale. Pain began suddenly, Alleviated by medications, Also complains of nausea. 05:07 Neuro: Level of Consciousness is awake, alert, obeys commands, Oriented to person, ha1 place, time, situation, Reports dizziness, headache. Cardiovascular: Patient's skin is warm and dry. Respiratory: Airway is patent Trachea midline Respiratory effort is even, unlabored, Respiratory pattern is regular, symmetrical. GI: Abdomen is non-distended, obese, Bowel sounds present X 4 quads. Reports lower abdominal pain, upper abdominal pain. : Reports burning with urination. Musculoskeletal: Circulation, motion, and sensation intact. Capillary refill < 3 seconds, Range of motion: intact in all extremities. 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 - Social history:: Smoking status: Patient denies any tobacco usage or history of. Screenin:15 Abuse screen: Denies threats or abuse. Denies injuries from another. Nutritional ha1 screening: No deficits noted. Tuberculosis screening: No symptoms or risk factors identified. Fall Risk None identified. Assessment: 05:12 General: see triage. 1 06:09 Pain: Complains of pain in abdomen Pain currently is 6 out of 10 on a pain scale. at ke1 worst was 10 out of 10 on a pain scale. level that patient reports is acceptable is 3 out of 10 on a pain scale. 07:00 Reassessment: Patient and/or family updated on plan of care and expected duration. Pain ha1 level reassessed. Patient is alert, oriented x 3, equal unlabored respirations, skin warm/dry/pink. Patient states feeling better. Vital Signs: 05:02 BP 120 / 68; Pulse 85; Resp 16 S; Temp 97.8; Pulse Ox 100% on R/A; Weight 92.99 kg; ha1 Height 5 ft. 9 in. (175.26 cm); Pain 7/10; 05:13 BP 120 / 68; Pulse 85; Resp 16 S; Temp 97.8(O); Pulse Ox 100% on R/A; ha1 07:00 BP 120 / 70; Pulse 80; Resp 16 S; Pulse Ox 100% on R/A; ha1 05:02 Body Mass Index 30.27 (92.99 kg, 175.26 cm) [facility] ED Course: 04:51 Patient arrived in ED. ja2 05:02 Swathi Thayer, RN is Primary Nurse. 1 05:07 Triage completed. ha1 05:07 Arm band placed on right wrist. ha1 05:17 Patient has correct armband on for positive identification. Bed in low position. Call [facility] light in reach. Side rails up X 1. Client placed on continuous cardiac and pulse oximetry monitoring. NIBP monitoring applied. 05:31 Angélica Beach MD is Attending Physician. sd2 05:53 Inserted saline lock: 20 gauge in left antecubital area, using aseptic technique. ke1 06:11 COVID-19 SARS RT PCR (Document "Date of Onset" if Symptomatic) Sent. ke1 06:14 Urine Microscopic Only Sent. ha1 07:07 No provider procedures requiring assistance completed. IV discontinued, intact, ha1 bleeding controlled, No redness/swelling at site. Pressure dressing applied. Administered Medications: 06:10 Drug: Ketorolac 15 mg Route: IVP; Site: left antecubital; ke1 07:07 Follow up: Response: No adverse reaction ha1 06:10 Drug: Reglan (metoCLOPramide) 10 mg Route: IVP; Site: left antecubital; ke1 07:06 Follow up: Response: No adverse reaction ha1 07:07 Follow up: Response: No adverse reaction ha1 06:10 Drug: Benadryl (diphenhydrAMINE) 25 mg Route: IVP; Site: left antecubital; ke1 07:06 Follow up: Response: No adverse reaction ha1 06:11 Drug: NS 0.9% 1000 ml Route: IV; Rate: 1 bolus; Site: left antecubital; ke1 07:06 Follow up: IV Status: Completed infusion; IV Intake: 1000ml ha1 Medication: 07:08 VIS not applicable for this client. ha1 Intake: 07:06 IV: 1000ml; Total: 1000ml. ha1 Outcome: 06:47 Discharge ordered by . id2 07:07 Discharged to home ambulatory. ha1 07:07 Condition: stable 07:07 Discharge instructions given to patient, Instructed on discharge instructions, follow up and referral plans. medication usage, Demonstrated understanding of instructions, follow-up care, medications, Prescriptions given X 1. 07:08 Patient left the ED. ha1 Signatures: Adela Rosa Kouassi, RN RN ke1 Angélica Beach MD MD sd2 Swathi Thayer RN RN ha1
--- NOTE | 2022-04-22 06:48 | EDPHYS ---
Physician Documentation [facility] Name: Arline Ordaz Age: 32 yrs Sex: Female : 1990 Arrival Date: 04/22/2022 Time: 04:51 Bed 18 Private MD: ED Physician Angélica Beach HPI: 04/22 05:40 This 32 yrs old Female presents to ER via Ambulatory with complaints of Headache, sd2 Nausea, Abdominal Pain. 05:40 32 yo F presents with CC of headache. States history of recurrent migraines and has sd2 been seen here previously for same but ANDERSON has been more constant this time despite taking TYlenol at home with associated nausea and vomiting. Also endorses lower abdominal burning sensation. Denies fever, CP, SOB. . 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 - Social history:: Smoking status: Patient denies any tobacco usage or history of. ROS: 05:40 Constitutional: Negative for fever, chills, and weight loss, Eyes: Negative for injury, sd2 pain, redness, and discharge, ENT: Negative for injury, pain, and discharge, Cardiovascular: Negative for chest pain, palpitations, and edema, Respiratory: Negative for shortness of breath, cough, wheezing. Abdomen/GI: Positive for abdominal pain, nausea, vomiting, Negative for diarrhea. : Negative for dysuria, urinary frequency, hesitancy, urgency and hematuria. MS/Extremity: Negative for injury and deformity, Skin: Negative for injury, rash, and discoloration, Neuro: Positive for headache, Negative for numbness and tingling. Exam: 05:40 Constitutional: This is a well developed, well nourished patient who is awake, alert, sd2 and in no acute distress. Head/Face: Normocephalic, atraumatic. Eyes: EOMI, normal conjunctiva bilaterally Chest/axilla: Normal chest wall appearance and motion. Nontender with no deformity. Cardiovascular: Regular rate and rhythm with a normal S1 and S2. No gallops, murmurs, or rubs. 2+ distal pulses. Respiratory: Lungs have equal breath sounds bilaterally, clear to auscultation and percussion. No rales, rhonchi or wheezes noted. No increased work of breathing, no retractions or nasal flaring. Abdomen/GI: Soft, non-tender, with normal bowel sounds. No guarding or rebound. No evidence of tenderness throughout. Back: No spinal tenderness. No costovertebral tenderness. Full range of motion. Skin: Warm, dry with normal turgor. Normal color with no rashes, no lesions, and no evidence of cellulitis. MS/ Extremity: Pulses equal, no cyanosis. Neurovascular intact. Full, normal range of motion. Ambulatory without difficulty. Neuro: Awake and alert, GCS 15, oriented to person, place, time, and situation. Cranial nerves II-XII grossly intact. Motor strength 5/5 in all extremities. Sensory grossly intact. Cerebellar exam normal. Normal gait. Psych: Awake, alert, with orientation to person, place and time. Behavior, mood, and affect are within normal limits. Vital Signs: 05:02 BP 120 / 68; Pulse 85; Resp 16 S; Temp 97.8; Pulse Ox 100% on R/A; Weight 92.99 kg; ha1 Height 5 ft. 9 in. (175.26 cm); Pain 7/10; 05:13 BP 120 / 68; Pulse 85; Resp 16 S; Temp 97.8(O); Pulse Ox 100% on R/A; ha1 07:00 BP 120 / 70; Pulse 80; Resp 16 S; Pulse Ox 100% on R/A; ha1 05:02 Body Mass Index 30.27 (92.99 kg, 175.26 cm) ha1 MDM: 05:31 Patient medically screened. sd2 05:40 Differential diagnosis: Differential diagnosis includes but is not limited to: Tension sd2 headache, migraine headache, intracranial hemorrhage, dehydration, electrolyte abnormality, musculoskeletal, meningitis among others. Data reviewed: vital signs, nurses notes. 06:45 Data reviewed: lab test result(s). Counseling: I had a detailed discussion with the sd2 patient and/or guardian regarding: the historical points, exam findings, and any diagnostic results supporting the discharge/admit diagnosis, lab results, the need for outpatient follow up, to return to the emergency department if symptoms worsen or persist or if there are any questions or concerns that arise at home. Medical screen evaluation completed. EMTALA emergency medical condition absent. ED course: Labs reviewed and reassuring. Pt feeling much improved at time of repeat evaluation with resolved symptoms. Requesting discharge home. Advised of need for outpatient follow up regarding her symptoms and recurrent migraines. Pt verbalizes understanding of discharge plan and strict return precautions.. 04/22 05:29 Order name: CBC with Diff; Complete Time: 06:27 bb 04/22 05:29 Order name: CMP; Complete Time: 06:27 bb 04/22 05:29 Order name: Lipase; Complete Time: 06:27 bb 04/22 05:31 Order name: COVID-19 SARS RT PCR (Document "Date of Onset" if Symptomatic); Complete bb Time: 06:04/22 05:40 Order name: Urine Microscopic Only; Complete Time: 06:27 sd2 04/22 06:13 Order name: Urine Dipstick-Ancillary; Complete Time: 06:27 EDMS 04/22 05:29 Order name: IV Saline Lock; Complete Time: 05:53 bb 04/22 05:29 Order name: Labs collected and sent; Complete Time: 05:53 bb 04/22 05:29 Order name: Urine Dipstick-Ancillary (obtain specimen); Complete Time: 06:14 bb 04/22 05:29 Order name: Urine Test (obtain specimen); Complete Time: 06:13 bb Administered Medications: 06:10 Drug: Ketorolac 15 mg Route: IVP; Site: left antecubital; ke1 07:07 Follow up: Response: No adverse reaction ha1 06:10 Drug: Reglan (metoCLOPramide) 10 mg Route: IVP; Site: left antecubital; ke1 07:06 Follow up: Response: No adverse reaction ha1 07:07 Follow up: Response: No adverse reaction ha1 06:10 Drug: Benadryl (diphenhydrAMINE) 25 mg Route: IVP; Site: left antecubital; ke1 07:06 Follow up: Response: No adverse reaction ha1 06:11 Drug: NS 0.9% 1000 ml Route: IV; Rate: 1 bolus; Site: left antecubital; ke1 07:06 Follow up: IV Status: Completed infusion; IV Intake: 1000ml ha1 Disposition Summary: 04/22/22 06:47 Discharge Ordered Location: Home sd2 Problem: an acute exacerbation sd2 Symptoms: have improved sd2 Condition: Stable sd2 Diagnosis - Cephalgia sd2 - Nausea and vomiting sd2 - Lower abdominal pain sd2 Followup: sd2 - With: Private Physician - When: 2 - 3 days - Reason: Recheck today's complaints, Continuance of care, Re-evaluation by your physician Discharge Instructions: - Discharge Summary Sheet sd2 - Abdominal Pain, Adult sd2 - Migraine Headache sd2 - Nausea and Vomiting, Adult sd2 - Form - Return To Work ha1 Forms: - Medication Reconciliation Form sd2 - Thank You Letter sd2 - Antibiotic Education sd2 - Prescription Opioid Use sd2 - Work release form ha1 Prescriptions: - Zofran 4 mg Oral Tablet - take 1 tablet by ORAL route every 6 hours As needed; 15 tablet; Refills: 0, sd2 Product Selection Permitted Signatures: Dispatcher [employer] Aileen Wade RN RN bb Ebrottie, Kouassi, RN RN ke1 Dunlop, Stephanie, MD MD sd2 Swathi Thayer RN RN 1
[2022-04-23 16:34] VITALS: TEMP 97.8; O2SAT 100
[2022-04-23 16:54] VITALS: BP 120/70
== END 2022-04-22 07:08 | disposition home or self-care (01) ==
LOC: ER 04:48
DX: R51.9 Headache, unspecified (principal); R11.2 Nausea with vomiting, unspecified; R10.9 Unspecified abdominal pain; Z20.822 Contact with and (suspected) exposure to COVID-19
CPT/HCPCS: 96361; 85025; 36415; 83690; 80053; 96375; 96374; 99284; U0003; J2765; J1200; J7030; 81003; 81015

== ENCOUNTER → 2023-07-28 | Emergency (ER) | payer BC ==
[~2023-07-28] MED LIST: AMOXICILLIN TRIHYDR 250 MG CAP ONE
--- NOTE | 2023-07-28 02:41 | ER ---
Nurse's Notes [facility] Name: Arline Ordaz Age: 33 yrs Sex: Female : 1990 Arrival Date: 07/28/2023 Time: 02:06 Bed 12 Private MD: Diagnosis: Acute suppurative otitis media Presentation: 07/28 02:12 Chief complaint: Patient states: left upper mouth pain and left ear pain of 7 with pf1 fever,onset Saturday. Patient stated wants to have a test as well. Coronavirus screen: Vaccine status: Patient reports being unvaccinated. Client denies travel out of the [place] in the last 14 days. At this time, the client does not indicate any symptoms associated with coronavirus-19. Ebola Screen: Patient negative for fever greater than or equal to 101.5 degrees Fahrenheit, and additional compatible Ebola Virus Disease symptoms. Initial Sepsis Screen: Does the patient meet any 2 criteria? No. Patient's initial sepsis screen is negative. Does the patient have a suspected source of infection? No. Patient's initial sepsis screen is negative. Risk Assessment: Do you want to hurt yourself or someone else? Patient reports no desire to harm self or others. 02:12 Method Of Arrival: Ambulatory pf1 02:12 Acuity: ALPESH 4 pf1 Historical: - Allergies: 02:19 No Known Allergies; pf1 - PMHx: 02:19 Anxiety; esophagus narrowing; Heart Murmur; pf1 - PSHx: 02:19 section; pf1 - Immunization history:: Adult Immunizations not up to date, Client reports having NOT received the Covid vaccine. Last tetanus immunization: < 5 years ago Flu vaccine is not up to date. - Social history:: Smoking status: Patient denies any tobacco usage or history of. Patient/guardian denies using alcohol, street drugs. Screenin:20 [facility] ED Fall Risk Assessment (Adult) History of falling in the last 3 months, pf1 including since admission No falls in past 3 months (0 pts) Confusion or Disorientation No (0 pts) Intoxicated or Sedated No (0 pts) Impaired Gait No (0 pts) Mobility Assist Device Used No (0 pt) Altered Elimination No (0 pt) Score/Fall Risk Level 0 - 2 = Low Risk Oriented to surroundings, Maintained a safe environment, Educated pt \T\ family on fall prevention, incl call for assistance when getting out of bed, Assessed \T\ reinforced patient's understanding of fall precautions, Provided non-skid footwear, Hourly rounding (assess needs \T\ fall precautionary measures) done, Used ambulatory aids as needed (educated on \T\ assisted with), Used gait belt as appropriate. 02:20 Abuse screen: Denies threats or abuse. Nutritional screening: No deficits noted. pf1 Tuberculosis screening: No symptoms or risk factors identified. Assessment: 02:20 General: Appears in no apparent distress. uncomfortable, obese, well groomed, well pf1 developed, Behavior is calm, cooperative, appropriate for age, quiet. 02:20 Pain: Complains of pain in left upper mouth and left ear. pf1 02:20 Pain: Pain currently is 7 out of 10 on a pain scale. pf1 02:20 Neuro: No deficits noted. Level of Consciousness is awake, alert, obeys commands, pf1 Oriented to person, place, time, situation. Cardiovascular: No deficits noted. Capillary refill < 3 seconds Patient's skin is warm and dry. Respiratory: No deficits noted. Airway is patent Respiratory effort is even, unlabored, Respiratory pattern is regular, symmetrical. GI: No deficits noted. No signs and/or symptoms were reported involving the gastrointestinal system. : Reports possible and wanted to have a test done here. EENT: Reports pain in left ear and left upper mouth. Vital Signs: 02:12 BP 131 / 79; Pulse 86; Resp 18; Temp 98; Pulse Ox 100% ; Weight 95.25 kg; Height 5 ft. pf1 9 in. ; Pain 7/10; 02:12 Body Mass Index 31.01 (95.25 kg, 175.26 cm) pf1 02:12 Pain Scale: Adult pf1 ED Course: 02:08 Patient arrived in ED. ag3 02:10 Micah Price MD is Attending Physician. ec2 02:19 Triage completed. pf1 02:20 Patient has correct armband on for positive identification. Bed in low position. Call pf1 light in reach. 02:20 Arm band placed on left wrist. pf1 02:20 No provider procedures requiring assistance completed. pf1 02:20 Patient did not have IV access during this emergency room visit. pf1 02:59 Provided Education on: prescription. pf1 Administered Medications: 02:45 Drug: Amoxicillin PO 1000 mg PO once Route: PO; pf1 02:59 Follow up: Response: No adverse reaction pf1 02:50 CANCELLED (Duplicate Order): [id number] mg PO once pf1 Medication: 02:20 VIS not applicable for this client. pf1 Outcome: 02:40 Discharge ordered by . ec2 02:58 Discharged to home ambulatory, with family, pf1 02:58 Condition: stable 02:58 Discharge instructions given to patient, family, Instructed on discharge instructions, follow up and referral plans. Demonstrated understanding of instructions, follow-up care, medications, Prescriptions given X , :59 Patient left the ED. pf1 Signatures: Shalonda Mcneil 3 Tami Aponte RN RN pf1 Micah Price MD MD ec2
--- NOTE | 2023-07-28 02:41 | EDPHYS ---
Physician Documentation [facility] Name: Arline Ordaz Age: 33 yrs Sex: Female : 1990 Arrival Date: 07/28/2023 Time: 02:06 Bed 12 Private MD: ED Physician Micah Price HPI: 07/28 02:17 This 33 yrs old Female presents to ER via Unassigned with complaints of Ear Pain. ec2 02:17 Patient arrives today for evaluation of ear pain. Patient reports that she has been ec2 experiencing several days of left-sided ear pain, states she is having some ear discharge. Reports some ear discomfort with cleaning her ear with a Q-tip. Patient reports some subjective fevers and chills.. Historical: - Allergies: 02:19 No Known Allergies; pf1 - PMHx: 02:19 Anxiety; esophagus narrowing; Heart Murmur; pf1 - PSHx: 02:19 section; pf1 - Immunization history:: Adult Immunizations not up to date, Client reports having NOT received the Covid vaccine. Last tetanus immunization: < 5 years ago Flu vaccine is not up to date. - Social history:: Smoking status: Patient denies any tobacco usage or history of. Patient/guardian denies using alcohol, street drugs. ROS: 02:17 Constitutional: as per hpi ec2 Exam: 02:17 Constitutional: GEN: NAD Head: atraumatic Eyes: EOMI Ears: Left ear with suppurative ec2 fluid behind the TM CV: regular rate LUNGS: no respiratory distress ABD: non-distended SKIN: no evidence of rashes MSK: no evidence of trauma NEURO: moves all extremities equally Vital Signs: 02:12 BP 131 / 79; Pulse 86; Resp 18; Temp 98; Pulse Ox 100% ; Weight 95.25 kg; Height 5 ft. pf1 9 in. ; Pain 7/10; 02:12 Body Mass Index 31.01 (95.25 kg, 175.26 cm) pf1 02:12 Pain Scale: Adult pf1 MDM: 02:10 Patient medically screened. ec2 02:17 ED course: Patient arrives today due to concern for left ear pain. Examination ec2 remarkable for acute otitis media of the left ear. Patient also feels concerned about possible , will test for however this would not be management changing for us today. . 02:40 Data reviewed: vital signs. ED course: Patient is negative for . Will ec2 discharge home and have her follow-up with primary care doctor.. 07/28 02:17 Order name: Test, Urine; Complete Time: 02:40 ec2 Administered Medications: 02:45 Drug: Amoxicillin PO 1000 mg PO once Route: PO; pf1 02:59 Follow up: Response: No adverse reaction pf1 02:50 CANCELLED (Duplicate Order): [id number] mg PO once pf1 Disposition Summary: 07/28/23 02:40 Discharge Ordered Notes: Location: Home ec2 Condition: Stable ec2 Diagnosis - Acute suppurative otitis media ec2 Followup: ec2 - With: Private Physician - When: - Reason: Recheck today's complaints Discharge Instructions: - Discharge Summary Sheet ec2 - Otitis Media, Adult, [id number] ec2 Forms: - Medication Reconciliation Form ec2 - Thank You Letter ec2 - Antibiotic Education ec2 - Prescription Opioid Use ec2 - Patient Portal Instructions ec2 - Leadership Thank You Letter ec2 Prescriptions: - Amoxicillin 875 mg Oral Tablet - take 1 tablet ORAL route every 12 hours for 10 days; 20 tablet; Refills: 0, ec2 Product Selection Permitted Signatures: Dispatcher [employer] Tami Brambila RN RN pf1 Micah Price MD MD ec2 Corrections: (The following items were deleted from the chart) 02:50 02:17 Amoxicillin PO 875 mg PO once ordered. ec2 pf1 02:50 02:31 Amoxicillin PO 875 mg PO once ordered. pf1 pf1
[2023-07-28 05:02] VITALS: BP 131/79; TEMP 98; O2SAT 100
== END ==
LOC: ER 02:06
DX: H66.002 Acute suppurative otitis media without spontaneous rupture of ear drum, left ear (principal); Z28.310 Unvaccinated for COVID-19
CPT/HCPCS: 81025; 99283

== ENCOUNTER 2023-11-27 07:47 | Emergency (ER) | payer BC ==
[2023-11-27] MEDS ORDERED: ONDANSETRON 4 MG/2 ML VIAL ONE (08:12)
[2023-11-27] MEDS ORDERED: NA CHLORIDE 0.9% 1,000 ML ONE (08:13)
[2023-11-27 08:33] LABS: Absolute Eosinophils 0.5 K/uL (0-0.5); Absolute Lymphocytes (CBC) 2.5 K/uL (0.7-4.9); Absolute Monocytes 0.7 K/uL (0.1-1.3); Absolute Neutrophil 4.6 K/uL (1.8-8.0); Basophils % 0.5 % (0-1.3); Eosinophils % 6.4 % (0-4.4); Hematocrit 38.7 % (36.0-45.0); Hemoglobin 13.3 g/dL (12.0-15.0); Lymphocytes % 29.4 % (15.3-44.8); MCH 27.9 pg (27.0-35.0); MCHC 34.4 g/dL (32.0-36.0); MCV 81.1 fL (80-100); MPV 7.6 fL (7.6-11.3); Monocytes % 8.5 % (3.3-12.3); Neutrophils % 55.2 % (41.7-73.7); Nucleated Red Blood Cells % 0.2 % (0-0); Platelets 237 thou/uL (152-406); RBC Red Blood Cell Count 4.77 M/uL (3.86-4.86); Red Cell Distribution Width 14.8 % (12.1-15.2)
--- NOTE | 2023-11-27 09:28 | EDPHYS ---
Physician Documentation [facility] Name: Arline Ordaz Age: 33 yrs Sex: Female : 1990 Arrival Date: 11/27/2023 Time: 07:47 Bed 8 Private MD: ED Physician Mamie Stoll HPI: 11/26 08:04 This 33 yrs old Female presents to ER via Ambulatory with complaints of Vaginal sp3 Bleeding, [id number]. 08:04 33-year-old female G4, now at 21 weeks without complications being seen by [facility] sp3 physicians presents to the ED with mild vaginal bleeding/spotting when wiping since 6 AM this morning approximately 2 hours ago. Patient also has lower abdominal pain coming in waves and low back pain. She denies any gush of fluid, dysuria, urinary frequency, vomiting, diarrhea, rash, bleeding anywhere else, or any other signs or symptoms on ROS at this time. She does endorse nausea.. TOOLSMITH: 08:04 4, Living 2, LMP 05/2023, unknown iw Historical: - Allergies: 08:04 No Known Allergies; iw - PMHx: 08:03 esophagus narrowing; Heart Murmur; Anxiety; iw - PSHx: 08:03 section; iw - Immunization history:: Adult Immunizations. - Infectious Disease History:: Denies. - Social history:: Smoking status: Patient denies any tobacco usage or history of. ROS: 08:05 Constitutional: Negative for fever, chills, and weight loss, Eyes: Negative for injury, sp3 pain, redness, and discharge, ENT: Negative for injury, pain, and discharge, Neck: Negative for injury, pain, and swelling, Cardiovascular: Negative for chest pain, palpitations, and edema, Respiratory: Negative for shortness of breath, cough, wheezing, and pleuritic chest pain, Back: Negative for injury and pain, MS/Extremity: Negative for injury and deformity, Skin: Negative for injury, rash, and discoloration, Neuro: Negative for headache, weakness, numbness, tingling, and seizure, Psych: Negative for depression, anxiety, suicide ideation, homicidal ideation, and hallucinations, Allergy/Immunology: Negative for hives, rash, and allergies, Endocrine: Negative for neck swelling, polydipsia, polyuria, polyphagia, and marked weight changes, 08:05 All other systems are negative, Exam: 08:05 Constitutional: This is a well developed, well nourished patient who is awake, alert, sp3 and in no acute distress. Head/Face: Normocephalic, atraumatic. Eyes: Pupils equal round and reactive to light, extra-ocular motions intact. Lids and lashes normal. Conjunctiva and sclera are non-icteric and not injected. Cornea within normal limits. Periorbital areas with no swelling, redness, or edema. ENT: Nares patent. No nasal discharge, no septal abnormalities noted. External auditory canals are clear. Oropharynx with no redness, swelling, or masses, exudates, or evidence of obstruction, uvula midline. Mucous membranes moist. Neck: Trachea midline, no thyromegaly or masses palpated, and no cervical lymphadenopathy. Supple, full range of motion without nuchal rigidity, or vertebral point tenderness. No Meningismus. Chest/axilla: Normal chest wall appearance and motion. Nontender with no deformity. No lesions are appreciated. Cardiovascular: Regular rate and rhythm with a normal S1 and S2. No gallops, murmurs, or rubs. Normal PMI, no JVD. No pulse deficits. Respiratory: Lungs have equal breath sounds bilaterally, clear to auscultation and percussion. No rales, rhonchi or wheezes noted. No increased work of breathing, no retractions or nasal flaring. Back: No spinal tenderness. No costovertebral tenderness. Full range of motion. Skin: Warm, dry with normal turgor. Normal color with no rashes, no lesions, and no evidence of cellulitis. MS/ Extremity: Pulses equal, no cyanosis. Neurovascular intact. Full, normal range of motion. Neuro: Awake and alert, GCS 15, oriented to person, place, time, and situation. Cranial nerves II-XII grossly intact. Motor strength 5/5 in all extremities. Sensory grossly intact. Cerebellar exam normal. Normal gait. Psych: Awake, alert, with orientation to person, place and time. Behavior, mood, and affect are within normal limits. 08:05 Abdomen/GI: Gravid uterus consistent with dates and limited exam secondary to obesity. No significant bleeding reported. Defer exam until ultrasound., Vital Signs: 08:01 BP 150 / 98; Pulse 81; Resp 18; Temp 98.1; Pulse Ox 100% on R/A; Weight 131.54 kg; iw Height 5 ft. 9 in. ; Pain 6/10; 10:15 BP 121 / 90; Pulse 79; Resp 16 S; Pulse Ox 100% on R/A; kc6 08:01 Body Mass Index 42.83 (131.54 kg, 175.26 cm) iw 08:01 Pain Scale: Adult iw MDM: 07:58 Patient medically screened. sp3 08:06 Data reviewed: vital signs, nurses notes, old medical records, lab test result(s), sp3 radiologic studies. ED course: 33-year-old female with 21 weeks now with vaginal spotting. Differential diagnosis includes placental abnormality, threatened miscarriage, labor, among others. Workup will include ultrasound transvaginal as well as abdominal, laboratory values, urine analysis and treatment with IV fluids and IV ondansetron. Disposition pending workup and patient course.. 09:05 ED course: Ultrasound demonstrates no heart tones and full demise. CBC is sp3 normal with remainder of lab work pending. We will transfer to [facility] for evacuation.. 11/26 07:58 Order name: Abo/rh Typing 3 11/26 07:58 Order name: Basic Metabolic Panel 3 11/26 07:58 Order name: CBC with Diff; Complete Time: 09:05 3 11/26 07:58 Order name: Quantitative Hcg 3 11/26 07:58 Order name: US OB Limited; Complete Time: 09:48 3 11/26 07:58 Order name: IV Saline Lock; Complete Time: 09:43 3 11/26 07:58 Order name: Labs collected and sent; Complete Time: 08:30 3 11/26 07:58 Order name: NPO; Complete Time: 08:00 3 11/26 08:35 Order name: Labs - recollect needed: recollect large purple and green top; Complete bd Time: 09:47 Administered Medications: 09:47 Drug: NS 0.9% IV 1000 ml IV at 1 bolus Per protocol; 1000 mL bolus Route: IV; Rate: 1 ko1 bolus; Site: left hand; 10:46 Follow up: Response: No adverse reaction; IV Status: Infusion continued upon transfer; kc6 IV Intake: 1000ml 09:47 Drug: Ondansetron IVP 4 mg IVP once; over 2 minutes Route: IVP; Site: left hand; ko1 10:15 Follow up: Response: No adverse reaction; Nausea is decreased kc6 Disposition Summary: 11/27/23 09:26 Transfer Ordered Notes: Transfer Location: [facility] sp3 Reason: Higher level of care sp3 Condition: Stable sp3 Problem: new sp3 Symptoms: have worsened sp3 Accepting Physician: OB(11/27/23 10:47) kc6 Diagnosis - demise, incomplete AB sp3 Forms: - Medication Reconciliation Form sp3 - SBAR form sp3 Signatures: Dispatcher [employer] EDMS Josefina Goff Irene RN RN iw Mamie Stoll MD MD sp3 Julieth Jane RN RN kc6 Nirmala Del Cid RN RN ko1 Corrections: (The following items were deleted from the chart) 07:59 07:59 ABO/RH TYPING+BB.LAB.BRZ ordered. EDMS EDMS 07:59 07:59 BASIC METABOLIC PANEL+C.LAB.BRZ ordered. EDMS EDMS 07:59 07:59 CBC+H.LAB.BRZ ordered. EDMS EDMS 07:59 07:59 QUANTITATIVE HCG+C.LAB.BRZ ordered. EDMS EDMS 07:59 07:59 Urinalysis+U.LAB.BRZ ordered. EDMS EDMS 07:59 07:59 OB Limited+US.RAD.BRZ ordered. EDMS EDMS 07:59 07:59 Transvaginal Ob+US.RAD.BRZ ordered. EDMS EDMS 10:47 09:26 OB sp3 kc6
--- NOTE | 2023-11-27 09:28 | ER ---
Nurse's Notes [facility] Name: Arline Ordaz Age: 33 yrs Sex: Female : 1990 Arrival Date: 11/27/2023 Time: 07:47 Bed 8 Private MD: Diagnosis: demise, incomplete AB Presentation: 11/26 08:01 Chief complaint: Patient states: spotting this morning when she wipes, also having iw mid/lower abd pain and low back pain, is 21 weeks , had stomach flu last week and had fever yesterday , denies pain/burning with urination. Coronavirus screen: At this time, the client does not indicate any symptoms associated with coronavirus-19. Ebola Screen: Patient negative for fever greater than or equal to 101.5 degrees Fahrenheit, and additional compatible Ebola Virus Disease symptoms Patient denies exposure to infectious person. Patient denies travel to an Ebola-affected area in the 21 days before illness onset. No symptoms or risks identified at this time. Initial Sepsis Screen: Does the patient meet any 2 criteria? No. Patient's initial sepsis screen is negative. Does the patient have a suspected source of infection? No. Patient's initial sepsis screen is negative. Risk Assessment: Do you want to hurt yourself or someone else? Patient reports no desire to harm self or others. Onset of symptoms was November 27, 2023. 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 - Infectious Disease History:: Denies. - Social history:: Smoking status: Patient denies any tobacco usage or history of. Screenin:54 [facility] ED Fall Risk Assessment (Adult) History of falling in the last 3 months, kc6 including since admission No falls in past 3 months (0 pts) Confusion or Disorientation No (0 pts) Intoxicated or Sedated No (0 pts) Impaired Gait No (0 pts) Mobility Assist Device Used No (0 pt) Altered Elimination No (0 pt) Score/Fall Risk Level 0 - 2 = Low Risk. Abuse screen: Denies threats or abuse. Denies injuries from another. Nutritional screening: No deficits noted. Tuberculosis screening: No symptoms or risk factors identified. Assessment: 08:32 General: Appears in no apparent distress. uncomfortable, Behavior is calm, cooperative, kc6 appropriate for age, quiet. Pain: Complains of pain in right lower quadrant and left lower quadrant Pain does not radiate. Pain currently is 6 out of 10 on a pain scale. Quality of pain is described as crampy, Pain began 1 day ago. Is intermittent, Noted to be guarding, quiet/stoic, resistant to movement, Also complains of no other associated symptoms. Neuro: Level of Consciousness is awake, alert, obeys commands, Oriented to person, place, time, situation, Appropriate for age. Cardiovascular: Capillary refill < 3 seconds. Respiratory: Airway is patent Trachea midline Respiratory effort is even, unlabored, Respiratory pattern is regular, symmetrical. GI: Abdomen is round non-distended, Bowel sounds present X 4 quads. Abd is soft X 4 quads Abdomen is tender to palpation in right lower quadrant and left lower quadrant Reports lower abdominal pain, cramping, nausea, Patient currently denies vomiting. : Reports cramping, in right in left lower quadrant(s) vaginal bleeding that is bright red, spotty, since this AM Denies burning with urination. EENT: No signs and/or symptoms were reported regarding the EENT system. Derm: No signs and/or symptoms reported regarding the dermatologic system. Skin is intact, is healthy with good turgor, Skin is pink, warm \T\ dry. Musculoskeletal: No signs and/or symptoms reported regarding the musculoskeletal system. Circulation, motion, and sensation intact. Capillary refill < 3 seconds, Range of motion: intact in all extremities. 08:32 Reassessment: pt to US via wheelchair. kc6 09:05 Reassessment: pt returned from US via wheelchair. kc6 09:07 Reassessment: Dr. Stoll \T\ Nirmala, RN at bedside providing patient and significant other kc with update. 09:32 Reassessment: Patient appears in no apparent distress at this time. No changes from [facility] previously documented assessment. Patient and/or family updated on plan of care and expected duration. Pain level reassessed. Patient is alert, oriented x 3, equal unlabored respirations, skin warm/dry/pink. 09:49 Reassessment: nurse to nurse report given to JOSE Juarez. kc6 Vital Signs: 08:01 BP 150 / 98; Pulse 81; Resp 18; Temp 98.1; Pulse Ox 100% on R/A; Weight 131.54 kg; iw Height 5 ft. 9 in. ; Pain 6/10; 10:15 BP 121 / 90; Pulse 79; Resp 16 S; Pulse Ox 100% on R/A; kc6 08:01 Body Mass Index 42.83 (131.54 kg, 175.26 cm) iw 08:01 Pain Scale: Adult iw ED Course: 07:50 Patient arrived in ED. mg5 07:52 Mamie Stoll MD is Attending Physician. sp3 07:54 Julieth Jane RN is Primary Nurse. kc6 08:03 Triage completed. iw 08:04 Arm band placed on. iw 08:32 Patient has correct armband on for positive identification. Placed in gown. Bed in low kc6 position. Call light in reach. Side rails up X2. Adult w/ patient. Client placed on continuous cardiac and pulse oximetry monitoring. NIBP monitoring applied. 08:32 Missed attempt(s): 22 gauge in left antecubital area. kc6 08:57 US OB Limited In Process Unspecified. EDMS 09:36 initiated transfer to [facility], pt accepted in transfer to [facility] L\T\D bd triage by dr [email or web address].admin approval given by Gin Modi. 09:43 Initial lab(s) drawn, by me, Basic and HCG. Inserted saline lock: 22 gauge in left em1 hand, using aseptic technique. Blood collected. 09:47 Basic Metabolic Panel Sent. ko1 09:47 Quantitative Hcg Sent. ko1 Administered Medications: 09:47 Drug: NS 0.9% IV 1000 ml IV at 1 bolus Per protocol; 1000 mL bolus Route: IV; Rate: 1 ko1 bolus; Site: left hand; 10:46 Follow up: Response: No adverse reaction; IV Status: Infusion continued upon transfer; kc6 IV Intake: 1000ml 09:47 Drug: Ondansetron IVP 4 mg IVP once; over 2 minutes Route: IVP; Site: left hand; ko1 10:15 Follow up: Response: No adverse reaction; Nausea is decreased kc6 Intake: 10:46 IV: 1000ml; Total: 1000ml. kc6 Outcome: 09:26 ER care complete, transfer ordered by . anupam3 10:47 Patient left the ED. kc6 Signatures: Dispatcher [employer] EDMS Josefina Goff Irene, RN RN iw Martinez, Eric em1 Patel, Setul, MD MD sp3 Julieth Jane RN RN kc6 Nirmala Del Cid RN RN ko1 Jaki Sandhu 5
--- NOTE | 2023-11-27 09:45 | RAD REPORT ---
EXAM DESCRIPTION: US - OB Limited - 11/27/2023 8:56 am CLINICAL HISTORY: VAGINAL BLEEDING COMPARISON: OB Limited dated 10/01/2023 TECHNIQUE: Sonographic grayscale and color flow images of a first-trimester were obtained through transabdominal approach. FINDINGS: Cervix is closed, cervical canal measures 3.14 cm. A single intrauterine is identified. Placenta has formed anteriorly. No heart rate or cardiac pulsations is identified. Femur length measures 21.7 millimeters, corresponding to gestational age of 16 weeks, 3 days. Biparietal diameter measures 3.55 cm, corresponding to gestational age of 16 weeks, 6 days. Head circumference measures 14.07 cm, corresponding to gestational age of 17 weeks, 3 days. Abdominal circumference measures 9.32 cm, corresponding to gestational age of 15 weeks, 3 days. Subjectively decreased volume of amniotic fluid. Estimated weight: 146.14 gram Maternal ovaries are not visualized. No free fluid. IMPRESSION: 1. Single intrauterine is identified, with no evidence of cardiac pulsations o r heart rate noted, concerning for demise. Subjectively decreased amniotic fluid volume. 2. Calculated gestational age: 16 weeks, 5 days, compared to 21 weeks and 5 days upon dating by LMP. The findings were communicated to Dr Stoll by Sanju Hartley (Government Affairs Manager) on 11/27/2023 at the time o f the study.
[2023-11-27 10:33] LABS: Anion Gap 6.5 mEq/L (5.0-15.0); Potassium 3.5 mEq/L (3.5-5.1)
[2023-11-27 11:03] VITALS: BP 121/90; TEMP 98.1; O2SAT 100
== END 2023-11-27 10:47 | disposition short-term general hospital (02) ==
LOC: ER 07:47
DX: O03.4 Incomplete spontaneous abortion without complication (principal); O02.1 Missed abortion
CPT/HCPCS: 85025; 80048; 36415; 86900; 86901; 84702; 76815; J2405; J7030; 96361; 96374; 99284

== ENCOUNTER 2024-08-25 09:59 | Emergency (ER) | payer BC ==
--- NOTE | 2024-08-25 10:16 | ER ---
Nurse's Notes [facility] Name: Arline Ordaz Age: 34 yrs Sex: Female : 1990 Arrival Date: 08/25/2024 Time: 09:59 Bed IW1 Private MD: Diagnosis: Dental caries, unspecified;Dental pain Presentation: 08/25 10:14 Chief complaint: Patient states: she has been having right sided gum pain and swelling ap3 that started yesterday. Coronavirus screen: At this time, the client does not indicate any symptoms associated with coronavirus-19. Ebola Screen: No symptoms or risks identified at this time. Initial Sepsis Screen: Does the patient meet any 2 criteria? No. Patient's initial sepsis screen is negative. Does the patient have a suspected source of infection? No. Patient's initial sepsis screen is negative. Risk Assessment: Do you want to hurt yourself or someone else? Patient reports no desire to harm self or others. Onset of symptoms was August 24, 2024. 10:14 Method Of Arrival: Ambulatory ap3 10:14 Acuity: ALPESH 4 ap3 Triage Assessment: 10:15 General: Appears uncomfortable, Behavior is calm, cooperative, appropriate for age. ap3 Pain: Complains of pain in mouth. Neuro: Level of Consciousness is awake, alert, obeys commands, Oriented to person, place, time, situation, Appropriate for age. Cardiovascular: Patient's skin is warm and dry. Respiratory: Airway is patent Respiratory effort is even, unlabored, Respiratory pattern is regular, symmetrical. 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 - Infectious Disease History:: Denies. - Social history:: Smoking status: Patient denies any tobacco usage or history of. Screenin:16 [facility] ED Fall Risk Assessment (Adult) History of falling in the last 3 months, ap3 including since admission No falls in past 3 months (0 pts) Confusion or Disorientation No (0 pts) Intoxicated or Sedated No (0 pts) Impaired Gait No (0 pts) Mobility Assist Device Used No (0 pt) Altered Elimination No (0 pt) Score/Fall Risk Level 0 - 2 = Low Risk Oriented to surroundings, Maintained a safe environment, Educated pt \T\ family on fall prevention, incl call for assistance when getting out of bed, Assessed \T\ reinforced patient's understanding of fall precautions, Hourly rounding (assess needs \T\ fall precautionary measures) done, Used ambulatory aids as needed (educated on \T\ assisted with), Used gait belt as appropriate. Abuse screen: Denies threats or abuse. Nutritional screening: No deficits noted. Tuberculosis screening: No symptoms or risk factors identified. Assessment: 10:34 General: Appears uncomfortable, Behavior is calm, cooperative, Denies fever. Pain: ss Complains of pain in mouth Pain currently is 10 out of 10 on a pain scale. Quality of pain is described as aching, Pain began 1 day ago. Is continuous. Neuro: Level of Consciousness is awake, alert, obeys commands, Oriented to person, place, time, situation. Respiratory: Airway is patent Respiratory effort is even, unlabored, Respiratory pattern is regular, symmetrical. EENT: Oral mucosa is moist. Derm: Skin is intact, is healthy with good turgor, Skin is pink, warm \T\ dry. normal. Vital Signs: 10:14 BP 121 / 86; Pulse 88; Resp 17; Temp 98.2; Pulse Ox 99% on R/A; Weight 102.06 kg; ap3 Height 5 ft. 9 in. ; Pain 10/10; 10:14 Body Mass Index 33.23 (102.06 kg, 175.26 cm) ap3 10:14 Pain Scale: Adult ap3 ED Course: 10:01 Patient arrived in ED. ra3 10:04 Jose Daniel Fernandez DO is Attending Physician. ms3 10:15 Triage completed. ap3 10:15 Dong Casanova DDS is Referral Physician. ms3 10:16 Arm band placed on right wrist. ap3 10:16 No provider procedures requiring assistance completed. Patient did not have IV access ap3 during this emergency room visit. 10:28 Eileen Mon, RN is Primary Nurse. ss 10:34 Patient has correct armband on for positive identification. Bed in low position. ss Administered Medications: 10:33 Drug: HYDROcodone-acetaminophen PO 5 mg-325 mg 1 tabs PO once Route: PO; 10:33 Follow up: Response: Medication Administered at Departure Medication: 10:34 VIS not applicable for this client. Outcome: 10:15 Discharge ordered by . ms3 10:34 Discharged to home ambulatory, 10:34 Condition: good 10:34 Discharge instructions given to patient, family, Instructed on discharge instructions, follow up and referral plans. medication usage, Demonstrated understanding of instructions, follow-up care, medications, Prescriptions given X 2, 10:36 Patient left the ED. Signatures: Eileen Mon, RN RN ss Molly Tellez RN RN ap3 Jose Daniel Fernandez DO DO ms3 Blessing Johnson ra3
--- NOTE | 2024-08-25 10:16 | EDPHYS ---
Physician Documentation [facility] Name: Arline Ordaz Age: 34 yrs Sex: Female : 1990 Arrival Date: 08/25/2024 Time: 09:59 Bed IW1 Private MD: ED Physician Jose Daniel Fernandez HPI: 08/25 12:23 This 34 yrs old Female presents to ER via Ambulatory with complaints of Mouth Swelling ms3 - Gum psbl infection. 12:23 Shima Ordaz, a 34-year-old female, presents to the Emergency Department with ms3 swelling of the mouth and gums, which began yesterday. The pain intensity is a ten on a scale of one to ten. She reports feeling nauseous and a subjective fever since last night. She attempted to contact several dentists but was advised to visit the ER due to unavailability of immediate appointments. She has scheduled a dental appointment for Saturday. The swelling is primarily on the right side of the gums. . RANGE MOUNTER: 10:16 LMP 08/13/2024, unknown ap3 Historical: - Allergies: 10:15 No Known Allergies; ap3 - PMHx: 10:15 Anxiety; esophagus narrowing; Heart Murmur; ap3 - PSHx: 10:15 section; ap3 - Immunization history:: Client reports having NOT received the Covid vaccine. - Infectious Disease History:: Denies. - Social history:: Smoking status: Patient denies any tobacco usage or history of. ROS: 12:26 Constitutional: Negative for fever, and chills. Cardiovascular: Negative for chest ms3 pain, and palpitations. Respiratory: Negative for shortness of breath, cough, wheezing, and pleuritic chest pain, Abdomen/GI: Negative for abdominal pain, nausea, vomiting, diarrhea, and constipation, MS/Extremity: Negative for injury and deformity, 12:26 ENT: Positive for dental pain, Exam: 12:26 Constitutional: This is a well developed, well nourished patient who is awake, alert, ms3 and in no acute distress. Cardiovascular: Regular rate and rhythm with a normal S1 and S2. No gallops, murmurs, or rubs. Normal PMI, no JVD. No pulse deficits. Respiratory: Lungs have equal breath sounds bilaterally, clear to auscultation and percussion. No rales, rhonchi or wheezes noted. No increased work of breathing, no retractions or nasal flaring. Abdomen/GI: Soft, non-tender, with normal bowel sounds. No distension or tympany. No guarding or rebound. No evidence of tenderness throughout. 12:26 ENT: Mouth: Gums: reddened, swollen, on the lower right second bicuspid, lower right first molar and lower right second molar, Dental exam: dental caries, that is moderate, specifically in the lower right first molar (#30) and lower right third molar (#32), fractured teeth are noted, specifically the lower right second molar (#31), Vital Signs: 10:14 BP 121 / 86; Pulse 88; Resp 17; Temp 98.2; Pulse Ox 99% on R/A; Weight 102.06 kg; ap3 Height 5 ft. 9 in. ; Pain 10/10; 10:14 Body Mass Index 33.23 (102.06 kg, 175.26 cm) ap3 10:14 Pain Scale: Adult ap3 MDM: 10:15 Medical Screening Exam initiated ms3 12:26 Differential diagnosis: dental caries, gingivitis, dental abscess. Data reviewed: vital ms3 signs, nurses notes, and as a result, I will discharge patient. I considered the following discharge prescriptions or medication management in the emergency department Medications were administered in the Emergency Department. See MAR. Counseling: I had a detailed discussion with the patient and/or guardian regarding the historical points, exam findings, and any diagnostic results supporting the discharge/admit diagnosis, the need for outpatient follow up, to return to the emergency department if symptoms worsen or persist or if there are any questions or concerns that arise at home. Special discussion: I discussed with the patient/guardian in detail that at this point there is no indication for admission to the hospital. It is understood, however, that if the symptoms persist or worsen the patient needs to return immediately for re-evaluation. ED course: Discussed physical exam findings with patient. Patient to follow-up with dentistry in 2 to 3 days. Patient understands and agrees with plan. All questions were answered. Return precautions discussed include worsening symptoms, or any other concerns. Patient given prescription for penicillin.. Administered Medications: 10:33 Drug: HYDROcodone-acetaminophen PO 5 mg-325 mg 1 tabs PO once Route: PO; ss 10:33 Follow up: Response: Medication Administered at Departure ss Disposition Summary: 08/25/24 10:15 Discharge Ordered Notes: Location: Home ms3 Condition: Stable ms3 Diagnosis - Dental caries, unspecified ms3 - Dental pain ms3 Followup: ms3 - With: Dong Casanova DDS - When: 2 - 3 days - Reason: Re-evaluation by your physician Discharge Instructions: - Discharge Summary Sheet ap3 - Dental Caries, Adult ms3 - Dental Pain ms3 Forms: - Work release form ap3 - Family Work Release ap3 - Medication Reconciliation Form ms3 - Antibiotic Education ms3 - Prescription Opioid Use ms3 - Patient Portal Instructions ms3 - Leadership Thank You Letter ms3 Prescriptions: - penicillin V potassium 500 mg Oral tablet - take 1 tablet ORAL route every 6 hours for 7 days; 28 tablet; Refills: 0, ms3 Product Selection Permitted - Ibuprofen 600 mg Oral Tablet - take 1 tablet ORAL route every 6 hours As needed take with food; 30 tablet; ms3 Refills: 0, Product Selection Permitted Signatures: Eileen Mon RN RN Molly Tellez RN RN ap3 Jose Daniel Fernandez DO DO ms3 Corrections: (The following items were deleted from the chart) 12:27 12:23 Shima Ordaz, a 34-year-old female, presents to the Emergency Department with ms3 swelling of the mouth and gums, which began yesterday. The pain intensity was previously at a ten on a scale of one to ten. She reports feeling nauseous and having a slight fever since last night. She attempted to contact several dentists but was advised to visit the ER due to unavailability of immediate appointments. She has scheduled a dental appointment for Saturday. The swelling is primarily on the right side of the gums. . ms3
[2024-08-25] MEDS ORDERED: HYDROCODONE/APAP 5/325 MG TAB ONE (10:25)
[2024-08-25 11:49] VITALS: BP 121/86; TEMP 98.2; O2SAT 99
== END 2024-08-25 10:36 | disposition home or self-care (01) ==
LOC: ER 09:59
DX: K02.9 Dental caries, unspecified (principal)
CPT/HCPCS: 99283

== ENCOUNTER 2024-09-29 19:42 | Emergency (ER) | payer BC ==
[2024-09-29 20:53] LABS: Specific Gravity 1.022 (1.005-1.030); Sqamous Epithelial <5 /HPF (None Seen); Urine Bacteria <20 /HPF (<20); Urine Bilirubin NEGATIVE (Negative); Urine Blood Negative (Negative); Urine Clarity Turbid (Clear); Urine Color Light-Yellow (Yellow); Urine Crystals Unidentified Few /HPF (None Seen); Urine Culture Reflex Order NOT NEEDED; Urine Glucose NEGATIVE (Negative); Urine Ketones NEGATIVE (Negative); Urine Microscopic Reflex YN ORDER UMIC; Urine Mucus Slight /HPF (None Seen); Urine Nitrite NEGATIVE (Negative); Urine Protein NEGATIVE (Negative); Urine RBC <5 /HPF (None Seen); Urine Urobilinogen Normal (Normal); Urine WBC <5 /HPF (<5); Urine WBC Clump Rare /HPF (None Seen); Urine Yeast (Budding) Trace /HPF (None Seen)
[2024-09-29 20:54] LABS: Absolute Basophils 0.1 K/uL (0-0.5); Absolute Eosinophils 0.4 K/uL (0-0.5); Absolute Lymphocytes (CBC) 4.1 K/uL (0.7-4.9); Absolute Monocytes 0.8 K/uL (0.1-1.3); Absolute Neutrophil 7.9 K/uL (1.8-8.0); Basophils % 0.9 % (0-1.3); Eosinophils % 2.8 % (0-4.4); Hemoglobin 12.4 g/dL (12.0-15.0); Lymphocytes % 30.9 % (15.3-44.8); MCH 26.4 pg (27.0-35.0); MCHC 33.6 g/dL (32.0-36.0); MCV 78.8 fL (80-100); MPV 8.6 fL (7.6-11.3); Monocytes % 6.1 % (3.3-12.3); Neutrophils % 59.3 % (41.7-73.7); Nucleated Red Blood Cells % 0.2 % (0-0); Platelets 225 thou/uL (152-406); RBC Red Blood Cell Count 4.69 M/uL (3.86-4.86); Red Cell Distribution Width 15.6 % (12.1-15.2); Specific Gravity 1.022 (1.005-1.030)
[2024-09-29 21:11] LABS: Albumin 3.3 g/dL (3.4-5.0); Albumin/Globulin Ratio 0.7 (1.1-1.8); Anion Gap 9.1 mEq/L (5.0-15.0); Bilirubin Total 0.4 mg/dL (0.2-1.0); Globulin 4.8 g/dL (2.3-3.5); Protein, Total 8.1 g/dL (6.4-8.2)
[2024-09-29 21:14] LABS: Potassium 4.1 mEq/L (3.5-5.1)
[2024-09-29] MEDS ORDERED: NA CHLORIDE 0.9% 1,000 ML ONE (21:43)
[2024-09-29] MEDS ORDERED: KETOROLAC 30 MG/ML INJ ONE (21:43)
[2024-09-29] MEDS ORDERED: ONDANSETRON 4 MG/2 ML VIAL ONE (21:43)
--- NOTE | 2024-09-29 21:50 | RAD REPORT ---
EXAMINATION: Stone Protocol CLINICAL INDICATION: Abdominal pain. Left flank pain TECHNIQUE: CT abdomen and pelvis was performed, without IV contrast, as per department protocol. Oral contrast not given. Axial, sagittal and coronal reconstructions were obtained. One or more of the following dose reduction techniques were used: Automated exposure control, adjustment of the mA and k V according to the patient size, and iterative reconstruction. Unless otherwise specified, incidental findings do not require dedicated imaging follow-up. COMPARISON: 2019. FINDINGS: The lack of intravenous and oral contrast limits the sensitivity of this exam for evaluation of solid visceral organs, vascular structures, and bowel A renal calculus not seen. No ureteral calculus. A bladder calculus not noted. No hydronephrosis Liver, spleen, pancreas and adrenals grossly normal No evidence of diverticulitis. Normal appendix Tiny umbilical hernia. Cholelithiasis. No gallbladder wall thickening IMPRESSION: Negative for a genitourinary calculus Cholelithiasis without evidence
--- NOTE | 2024-09-29 22:44 | EDPHYS ---
Physician Documentation [facility] Name: Arline Ordaz Age: 34 yrs Sex: Female : 1990 Arrival Date: 09/29/2024 Time: 19:42 Bed 16 Private MD: ED Physician Mat Salcedo HPI: 09/29 23:03 This 34 yrs old Female presents to ER via Ambulatory with complaints of Abdominal Pain. kb 23:03 Pt is a 34 year old female who presents for left abd pain that started this morning and kb has gotten worse. Reports nausea due to pain. Denies vomiting, diarrhea, urinary symptoms, fever. 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 Flu vaccine is not up to date. - Infectious Disease History:: Denies. - Social history:: Smoking status: Patient denies any tobacco usage or history of. ROS: 23:02 Constitutional: As per HPI kb Exam: 23:02 Constitutional: This is a well developed, well nourished patient who is awake, alert, kb and in no acute distress. Head/Face: Normocephalic, atraumatic. ENT: Moist Mucous membranes Cardiovascular: Regular rate Respiratory: Respirations even and unlabored. No increased work of breathing. Talking in full sentences Skin: Warm, dry with normal turgor. Normal color. MS/ Extremity: Pulses equal, no cyanosis. Neurovascular intact. Full, normal range of motion. Neuro: Awake and alert, GCS 15, oriented to person, place, time, and situation. 23:02 Abdomen/GI: Inspection: abdomen appears normal, Bowel sounds: normal, Palpation: soft, in all quadrants, mild abdominal tenderness, in the left upper quadrant, 23:02 Back: CVA tenderness, that is mild, is noted on the left, Vital Signs: 19:54 Pulse 123; Resp 18; Temp 98.6(O); Pulse Ox 100% ; Weight 104.33 kg; Pain 10/10; ap3 19:58 BP 117 / 70; ap3 22:30 BP 101 / 63; Pulse 79; Resp 17; Pulse Ox 100% on R/A; Pain 0/10; rg5 19:54 Pain Scale: Adult ap3 22:30 Pain Scale: Adult rg5 MDM: 20:00 Medical Screening Exam initiated kb 23:02 Differential diagnosis: diverticulitis, non-specific abd pain, Ureterolithiasis, kb urinary tract infection. Data reviewed: vital signs, nurses notes. Historians other than the Patient: Spouse/Significant Other: spouse. Counseling: I had a detailed discussion with the patient and/or guardian regarding the historical points, exam findings, and any diagnostic results supporting the discharge/admit diagnosis, lab results, radiology results, the need for outpatient follow up, a family practitioner, to return to the emergency department if symptoms worsen or persist or if there are any questions or concerns that arise at home. 09/29 20:00 Order name: CBC with Diff; Complete Time: 20:57 kb 09/29 20:00 Order name: CMP; Complete Time: 21:15 kb 09/29 20:00 Order name: Lipase; Complete Time: 21:15 kb 09/29 20:00 Order name: Test, Urine; Complete Time: 20:55 kb 09/29 20:00 Order name: Urinalysis w/ reflexes; Complete Time: 20:55 kb 09/29 20:00 Order name: CT Stone Protocol; Complete Time: 21:55 kb 09/29 20:00 Order name: IV Saline Lock; Complete Time: 20:55 kb 09/29 20:00 Order name: Labs collected and sent; Complete Time: 20:55 kb 09/29 22:35 Order name: Vital Signs; Complete Time: 23:53 kb Administered Medications: 21:30 Drug: TORadol - Ketorolac IVP 15 mg IVP once Route: IVP; Site: right antecubital; rg5 21:52 Follow up: Response: No adverse reaction; Pain is decreased rg5 21:30 Drug: Ondansetron IVP 4 mg IVP once; over 2 minutes Route: IVP; Site: right antecubital;rg5 21:52 Follow up: Response: No adverse reaction; Pain is decreased rg5 21:30 Drug: NS 0.9% IV 1000 ml IV at 1 bolus Per protocol; to be given as a bolus over 60 rg5 minutes Route: IV; Rate: 1 bolus; Site: right antecubital; 22:30 Follow up: IV Status: Completed infusion; IV Intake: 1000ml rg5 Disposition: 09/30 20:23 Co-signature as Attending Physician, Mat Salcedo MD I agree with the assessment sp4 and plan of care. I reviewed the patient's care provided by Advanced Practice Provider \T\ agree w/ the diagnosis \T\ care plan. I personally saw the pt \T\ performed a substantive portion of the visit, incldng all aspects of the (History/Exam/Medical Decision Making). Disposition Summary: 09/29/24 22:44 Discharge Ordered Notes: Location: Home kb Condition: Stable kb Diagnosis - Abdominal pain, Generalized kb Followup: kb - With: Emergency Department - When: As needed - Reason: Worsening of condition Followup: kb - With: Private Physician - When: 2 - 3 days - Reason: Recheck today's complaints, Continuance of care, Re-evaluation by your physician Discharge Instructions: - Discharge Summary Sheet kb - Abdominal Pain, Adult, [id number] kb Forms: - Medication Reconciliation Form kb - Antibiotic Education kb - Prescription Opioid Use kb - Patient Portal Instructions kb - Leadership Thank You Letter kb Prescriptions: - Zofran 4 mg Oral tablet - take 1 tablet ORAL route every 6 hours As needed; 12 tablet; Refills: 0, kb Product Selection Permitted - Diclofenac Sodium 75 mg Oral tablet, delayed release (enteric coated) - take 1 tablet ORAL route 2 times per day As needed; 30 tablet; Refills: 0, kb Product Selection Permitted Signatures: Dispatcher [employer] Lilli Sweeney, CORNELL NAIR-Molly Smith, RN RN ap3 Mat Salcedo MD MD sp4 Usman Sorenson, RN RN rg5
--- NOTE | 2024-09-29 22:44 | ER ---
Nurse's Notes [facility] Name: Arline Ordaz Age: 34 yrs Sex: Female : 1990 Arrival Date: 09/29/2024 Time: 19:42 Bed 16 Private MD: Diagnosis: Abdominal pain, Generalized Presentation: 09/29 19:54 Chief complaint: Patient states: she started having left sided abdominal pain that ap3 started this morning. patient states she attempted to go to work, but was unable to due to pain. Coronavirus screen: At this time, the client does not indicate any symptoms associated with coronavirus-19. Ebola Screen: No symptoms or risks identified at this time. Initial Sepsis Screen: Does the patient meet any 2 criteria? HR > 90 bpm. Does the patient have a suspected source of infection? No. Patient's initial sepsis screen is negative. Risk Assessment: Do you want to hurt yourself or someone else? Patient reports no desire to harm self or others. Onset of symptoms was September 29, 2024. 19:54 Method Of Arrival: Ambulatory ap3 19:58 Acuity: ALPESH 3 ap3 Triage Assessment: 19:57 General: Appears uncomfortable, Behavior is cooperative. Pain: Complains of pain in ap3 posterior aspect of left lateral abdomen, anterior aspect of left lateral abdomen and left lower quadrant Pain currently is 10 out of 10 on a pain scale. Pain began suddenly, this morning. Neuro: Level of Consciousness is awake, alert, obeys commands, Oriented to person, place, time, situation, Appropriate for age. Cardiovascular: Patient's skin is warm and dry. Respiratory: Airway is patent Respiratory effort is even, unlabored, Respiratory pattern is regular, symmetrical. GI: Reports lower abdominal pain, upper abdominal pain, nausea. : Reports pain in left flank(s). 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 Flu vaccine is not up to date. - Infectious Disease History:: Denies. - Social history:: Smoking status: Patient denies any tobacco usage or history of. Screenin:58 [facility] ED Fall Risk Assessment (Adult) History of falling in the last 3 months, ap3 including since admission No falls in past 3 months (0 pts) Confusion or Disorientation No (0 pts) Intoxicated or Sedated No (0 pts) Impaired Gait No (0 pts) Mobility Assist Device Used No (0 pt) Altered Elimination No (0 pt) Score/Fall Risk Level 0 - 2 = Low Risk Oriented to surroundings, Maintained a safe environment, Educated pt \T\ family on fall prevention, incl call for assistance when getting out of bed, Assessed \T\ reinforced patient's understanding of fall precautions, Hourly rounding (assess needs \T\ fall precautionary measures) done, Used ambulatory aids as needed (educated on \T\ assisted with). Abuse screen: Denies threats or abuse. Nutritional screening: No deficits noted. Tuberculosis screening: No symptoms or risk factors identified. Assessment: 19:59 GI: Abd is soft Abdomen is tender to palpation in left upper quadrant. ap3 21:30 General: Appears in no apparent distress. comfortable. rg5 21:30 Pain: Complains of pain in abdomen. Neuro: Level of Consciousness is Oriented to. rg5 Cardiovascular: Denies chest pain, Patient's skin is warm and dry. GI: Bowel sounds present in left lower quadrant Reports upper abdominal pain, nausea. : No signs and/or symptoms were reported regarding the genitourinary system. EENT: No signs and/or symptoms were reported regarding the EENT system. Derm: Skin is intact, Skin is dry, Skin is normal. Musculoskeletal: Circulation, motion, and sensation intact. Range of motion: intact in all extremities. 22:30 Reassessment: Patient and/or family updated on plan of care and expected duration. Pain rg5 level reassessed. Patient is alert, oriented x 3, equal unlabored respirations, skin warm/dry/pink. Patient states feeling better. 23:30 Reassessment: Patient and/or family updated on plan of care and expected duration. Pain rg5 level reassessed. Patient is alert, oriented x 3, equal unlabored respirations, skin warm/dry/pink. Patient states symptoms have improved. Vital Signs: 19:54 Pulse 123; Resp 18; Temp 98.6(O); Pulse Ox 100% ; Weight 104.33 kg; Pain 10/10; ap3 19:58 BP 117 / 70; ap3 22:30 BP 101 / 63; Pulse 79; Resp 17; Pulse Ox 100% on R/A; Pain 0/10; rg5 19:54 Pain Scale: Adult ap3 22:30 Pain Scale: Adult rg5 ED Course: 19:44 Patient arrived in ED. mr 19:58 Arm band placed on right wrist. ap3 19:59 Triage completed. ap3 19:59 Mat Salcedo MD is Attending Physician. rn 20:00 [facility]C [facility]. kb 20:03 Radiology exam delayed due to test not completed at this time. jc4 20:55 CBC with Diff Sent. vk 20:55 CMP Sent. vk 20:55 Lipase Sent. vk 20:55 Initial lab(s) drawn, by me, sent to lab. Inserted saline lock: 20 gauge in right vk antecubital area, using aseptic technique. Blood collected. Flushed with 10 mL NS. 20:55 Urine collected: clean catch specimen, clear. vk 21:03 Usman Sorenson, RN is Primary Nurse. rg5 21:20 CT Stone Protocol In Process Unspecified. EDMS 21:30 No provider procedures requiring assistance completed. rg5 21:45 Bed in low position. Call light in reach. Side rails up X 1. rg5 23:54 Provided Education on: post er care done. rg5 23:54 IV discontinued, bleeding controlled, No redness/swelling at site. Pressure dressing rg5 applied. Administered Medications: 21:30 Drug: TORadol - Ketorolac IVP 15 mg IVP once Route: IVP; Site: right antecubital; rg5 21:52 Follow up: Response: No adverse reaction; Pain is decreased rg5 21:30 Drug: Ondansetron IVP 4 mg IVP once; over 2 minutes Route: IVP; Site: right antecubital;rg5 21:52 Follow up: Response: No adverse reaction; Pain is decreased rg5 21:30 Drug: NS 0.9% IV 1000 ml IV at 1 bolus Per protocol; to be given as a bolus over 60 rg5 minutes Route: IV; Rate: 1 bolus; Site: right antecubital; 22:30 Follow up: IV Status: Completed infusion; IV Intake: 1000ml rg5 Medication: 23:55 VIS not applicable for this client. rg5 Intake: 22:30 IV: 1000ml; Total: 1000ml. rg5 Outcome: 22:44 Discharge ordered by . kb 23:54 Discharged to home ambulatory, rg5 23:54 Condition: stable 23:54 Discharge instructions given to patient, Instructed on discharge instructions, follow up and referral plans. Demonstrated understanding of instructions, follow-up care, medications, Prescriptions given X 2, 23:57 Patient left the ED. rg5 Signatures: Dispatcher [employer] EDMS Lilli Mae, WELFARE CENTRE MANAGER-C WELFARE CENTRE MANAGER-Ckb Antonia Cabrera, Reg Reg mr Tunde Ferrera MD MD rn Molly Tellez RN RN [email or web address] Ngoc Mcdonald Rommel, JOSE RN rg5 Ariel Olivier jc4
[2024-09-30 00:13] VITALS: TEMP 98.6; O2SAT 100
[2024-09-30 00:16] VITALS: BP 101/63
== END 2024-09-29 23:57 | disposition home or self-care (01) ==
LOC: ER 19:42
DX: R10.84 Generalized abdominal pain (principal)
CPT/HCPCS: 96361; 85025; 81001; 36415; 81025; 83690; 80053; 76377; 74176; 96375; 96374; 99284; J2405; J7030

== ENCOUNTER 2024-12-17 20:28 | Emergency (ER) | payer BC, OTHER ==
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
[2024-12-17] MEDS ORDERED: ONDANSETRON 4 MG (ODT) TAB ONE (21:28)
[2024-12-17] MEDS ORDERED: HYDROCODONE/APAP 7.5/325 MG TAB ONE (21:28)
--- NOTE | 2024-12-17 22:06 | RAD REPORT ---
EXAMINATION: XR RIGHT SHOUDLER CLINICAL INDICATION: Female, 34 years old. PAIN RIGHT TECHNIQUE: Multiple views of the right shoulder were obtained. COMPARISON: 12/24/2010 FINDINGS: No bone or joint abnormality detected.
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
[2024-12-17 22:45] VITALS: TEMP 98.1; O2SAT 98
[2024-12-17 22:47] VITALS: BP 148/90
== END 2024-12-17 22:32 | disposition home or self-care (01) ==
LOC: ER 20:28
DX: S43.491A Other sprain of right shoulder joint, initial encounter (principal); V49.59XA Passenger injured in collision with other motor vehicles in traffic accident, initial encounter
CPT/HCPCS: 70450; 72125; 73030; 99284; Q0162